=== PATIENT | female | born 1930 | race Caucasian/White ===

== ENCOUNTER → 2016-12-28 | Outpatient (CLI) | payer MEDICARE, BC ==
[2014-12-11 11:22] VITALS: BP 157/61
[~2016-12-28] MED LIST: CALC1TAB PO; CARV12.5 PO; IRBE150T PO; LACT1CAP25 PO; PANT40TA3 PO; RANI150T2 PO; [UNRECOGNIZED DRUG - CODE] PO
--- NOTE | 2016-12-28 12:15 | KCIC ---
EXAM: Bilateral screening mammogram. HISTORY: 86-year-old female presents for screening mammography. TECHNIQUE: Full-field digital craniocaudal, exaggerated craniocaudal and mediolateral oblique views of both breasts are obtained for evaluation. Computer aided detection with Lean[employer] software version 9.3 was applied. COMPARISON: 12/26/2015 BREAST PARENCHYMAL DENSITY: Level B - Scattered fibroglandular densities. FINDINGS: There is a small focal asymmetry within the lateral aspect of the right breast on the craniocaudal projection which is not conspicuous on an exaggerated craniocaudal projection, favoring summation artifact. There are few benign calcifications within both breasts. There is no architectural distortion. IMPRESSION: BI-RADS Category 2: Benign finding(s). RECOMMENDATION: Annual mammography is recommended. If your mammogram demonstrates that you have dense breast tissue, which could hide abnormalities, and if you have other risk factors for breast cancer that have been identified, you might benefit from supplemental screening tests that may be suggested by your ordering physician. Dense breast tissue, in and of itself, is a relatively common condition. This information is not provided to cause undue concern, but rather to raise your awareness and to promote discussion with your physician regarding the presence of other risk factors, in addition to dense breast tissue. A report of your mammography results will be sent to you and your physician. You should contact your physician if you have any questions or concerns regarding this report. Mammography is a sensitive method for finding small breast cancers, but it does not detect them all and is not a substitute for careful clinical examination. A negative mammogram does not negate a clinically suspicious finding and should not result in delay in biopsying a clinically suspicious abnormality. PQRS compliance statement - Patient information was entered into a reminder system with a target due date for the next mammogram. "Our facility is accredited by the [employer] Mammography [employer]." Electronically signed by: Silva Santiago MD (12/28/2016 12:11 PM) [facility]
== END | disposition home or self-care (01) ==
LOC: KCIC MAMMO 10:05
PROVIDERS: ATTEND Family Medicine
DX: Z12.31 Encounter for screening mammogram for malignant neoplasm of breast (principal)
CPT/HCPCS: G0202; 77067

== ENCOUNTER → 2018-01-04 | Outpatient (CLI) | payer MEDICARE, BC ==
[2014-12-11 11:22] VITALS: BP 157/61
--- NOTE | 2018-01-04 11:46 | KCIC ---
EXAM: Bilateral screening mammogram. HISTORY: 87-year-old female presents for screening mammography. TECHNIQUE: Full-field digital craniocaudal and mediolateral oblique views of both breasts are obtained for evaluation. Computer aided detection with Ibot[employer] software version 9.3 was applied. COMPARISON: 12/28/2016 and 12/26/2015 BREAST PARENCHYMAL DENSITY: Level B - Scattered fibroglandular densities. FINDINGS: There is no new suspicious mass, microcalcification or region of architectural distortion. IMPRESSION: BI-RADS Category 2: Benign finding(s). RECOMMENDATION: Annual mammography is recommended. If your mammogram demonstrates that you have dense breast tissue, which could hide abnormalities, and if you have other risk factors for breast cancer that have been identified, you might benefit from supplemental screening tests that may be suggested by your ordering physician. Dense breast tissue, in and of itself, is a relatively common condition. This information is not provided to cause undue concern, but rather to raise your awareness and to promote discussion with your physician regarding the presence of other risk factors, in addition to dense breast tissue. A report of your mammography results will be sent to you and your physician. You should contact your physician if you have any questions or concerns regarding this report. Mammography is a sensitive method for finding small breast cancers, but it does not detect them all and is not a substitute for careful clinical examination. A negative mammogram does not negate a clinically suspicious finding and should not result in delay in biopsying a clinically suspicious abnormality. PQRS compliance statement - Patient information was entered into a reminder system with a target due date for the next mammogram. "Our facility is accredited by the [employer] Mammography [employer]." Electronically signed by: Silva Santiago MD (01/04/2018 11:43 AM) [facility]
== END | disposition home or self-care (01) ==
LOC: KCIC MAMMO 10:16
PROVIDERS: ATTEND Family Medicine
DX: Z12.31 Encounter for screening mammogram for malignant neoplasm of breast (principal)
CPT/HCPCS: 77067

== ENCOUNTER → 2019-01-15 | Outpatient (CLI) | payer MEDICARE, BC ==
[2014-12-11 11:22] VITALS: BP 157/61
[~2019-01-15] MED LIST changes: -PANT40TA3 PO; +PANT40TA77 PO
--- NOTE | 2019-01-15 12:28 | KCIC ---
Bilateral digital screening mammograms: Reason for examination: Routine screening. Comparison is made to previous studies dated 01/04/2018 and 12/28/2016. Interpretation was made with the benefit of CAD. The skin and nipples show no abnormalities. No abnormal axillary lymph nodes are seen. The breast parenchyma shows scattered fibroglandular density. (Breast density: Category B.) There are no dominant masses, suspicious calcifications or architectural distortions. Some benign calcifications are present. Impression: No evidence of malignancy. Recommend routine screening. BI-RADS category 2: Benign. "Our facility is accredited by the [employer] Mammography [employer]." This patient's information has been entered into a reminder system for the patient to be notified with the results of her examination and a target date for the next mammogram. Electronically signed by: Breanna Zhang MD (01/15/2019 12:25 PM) [facility]
== END | disposition home or self-care (01) ==
LOC: KCIC MAMMO 11:26
PROVIDERS: ATTEND Family Medicine
DX: Z12.31 Encounter for screening mammogram for malignant neoplasm of breast (principal); N64.89 Other specified disorders of breast
CPT/HCPCS: 77067

== ENCOUNTER 2019-03-18 10:40 | Emergency (ER) | payer MEDICARE, BC ==
[~2019-03-18] VITALS: Ht 157.5 cm; Wt 75.7 kg
[2019-03-18] MEDS ORDERED: fentaNYL PF VIAL 100 MCG/2 ML VIAL IVP ONE ×2 (11:30→13:30)
[2019-03-18] MEDS ORDERED: IPRATRPIUM/ALBUTEROL 0.5/2.5MG 3 ML NEBU. NEB ONE (11:30)
--- NOTE | 2019-03-18 11:34 | PHYS DOC ---
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 Patient states she has had right side headache and facial pain for the last 10 days associated with cough without fever and chills, sore throat, sick contact, shortness of breath, diarrhea and constipation, urinary symptom, focal neuro deficit. Patient complaining of right maxillary and frontal sinus pain with radiation to her ear and throat and rated her pain 8/10. Patient states she was seen by her primary care physician 5 days ago and was started on doxycycline without improvement of her condition. Review of Systems Review of Systems Constitutional: Denies fever or chills [] Eyes: Denies change in visual acuity, redness, or eye pain [] HENT: Reports nasal congestion Respiratory: Denies shortness of breath, reports cough [] Cardiovascular: No additional information not addressed in HPI [] GI: Denies abdominal pain, nausea, vomiting, bloody stools or diarrhea [] : Denies dysuria or hematuria [] Musculoskeletal: Denies back pain or joint pain [] Integument: Denies rash or skin lesions [] Neurologic: Denies headache, focal weakness or sensory changes [] Endocrine: Denies polyuria or polydipsia [] All other systems were reviewed and found to be within normal limits, except as documented in this note. Current Medications Current Medications Current Medications Medications (Trade) Dose Ordered Sig/Serina Start Time Stop Time Status Last Admin Dose Admin Albuterol Sulfate (Ventolin Neb Soln) 2.5 mg 1X ONCE 03/18/19 13:30 03/18/19 13:31 DC 03/18/19 13:29 2.5 MG Albuterol/ Ipratropium (Duoneb) 3 ml 1X ONCE 03/18/19 11:30 03/18/19 11:31 DC 03/18/19 11:52 3 ML Ceftriaxone Sodium (Rocephin) 1 gm 1X ONCE 03/18/19 13:15 03/18/19 13:16 DC 03/18/19 13:22 1 GM Fentanyl Citrate (Fentanyl 2ml Vial) 50 mcg 1X ONCE 03/18/19 13:30 03/18/19 13:31 DC 03/18/19 13:24 50 MCG Magnesium Oxide (Magnesium Oxide) 400 mg 1X ONCE 03/18/19 13:00 03/18/19 13:01 DC 03/18/19 13:16 400 MG Allergies Allergies Allergies Coded Allergies Type Severity Reaction Last Updated Verified atropine Allergy Severe "COMA" 07/22/14 Yes grape Allergy Severe 12/09/14 Yes adhesive Allergy Intermediate 10/10/14 Yes Physical Exam Physical Exam Constitutional: Well developed, well nourished, mild distress, non-toxic appearance. [] HENT: Normocephalic, atraumatic, bilateral external ears normal, oropharynx moist, no oral exudates, or mucosal congestion, mild right facial edema, right maxillary and frontal sinus tenderness Eyes: PERRLA, EOMI, conjunctiva normal, no discharge. [] Neck: Normal range of motion, no tenderness, supple, no stridor. [] Cardiovascular:Heart rate regular rhythm, no murmur [] Lungs & Thorax: Bilateral breath sounds clear to auscultation [] Abdomen: Bowel sounds normal, soft, no tenderness, no masses, no pulsatile masses. [] Skin: Warm, dry, no erythema, no rash. [] Back: No tenderness, no CVA tenderness. [] Extremities: No tenderness, no cyanosis, no clubbing, ROM intact, no edema. [] Neurologic: Alert and oriented X 3, normal motor function, normal sensory func tion, no focal deficits noted. [] Psychologic: Affect normal, judgement normal, mood normal. [] Current Patient Data Vital Signs Vital Signs Date Time Temp Pulse Resp B/P (MAP) Pulse Ox O2 Delivery O2 Flow Rate FiO2 03/18/19 13:30 Room Air 03/18/19 13:24 18 03/18/19 13:01 64 168/69 (102) 93 03/18/19 10:43 97.7 97.7 Lab Values Laboratory Tests Test 03/18/19 11:56 White Blood Count 7.9 x10^3/uL (4.0-11.0) Red Blood Count 3.69 x10^6/uL (3.50-5.40) Hemoglobin 12.0 g/dL (12.0-15.5) Hematocrit 37.0 % (36.0-47.0) Mean Corpuscular Volume 100 fL (79-100) Mean Corpuscular Hemoglobin 33 pg (25-35) Mean Corpuscular Hemoglobin Concent 33 g/dL (31-37) Red Cell Distribution Width 12.7 % (11.5-14.5) Platelet Count 215 x10^3/uL (140-400) Neutrophils (%) (Auto) 74 % (31-73) H Lymphocytes (%) (Auto) 13 % (24-48) L Monocytes (%) (Auto) 11 % (0-9) H Eosinophils (%) (Auto) 1 % (0-3) Basophils (%) (Auto) 1 % (0-3) Neutrophils # (Auto) 5.9 x10^3/uL (1.8-7.7) Lymphocytes # (Auto) 1.0 x10^3/uL (1.0-4.8) Monocytes # (Auto) 0.9 x10^3/uL (0.0-1.1) Eosinophils # (Auto) 0.1 x10^3/uL (0.0-0.7) Basophils # (Auto) 0.0 x10^3/uL (0.0-0.2) Sodium Level 140 mmol/L (136-145) Potassium Level 4.1 mmol/L (3.5-5.1) Chloride Level 104 mmol/L (98-107) Carbon Dioxide Level 27 mmol/L (21-32) Anion Gap 9 (6-14) Blood Urea Nitrogen 18 mg/dL (7-20) Creatinine 1.0 mg/dL (0.6-1.0) Estimated GFR (Cockcroft-Gault) 52.4 BUN/Creatinine Ratio 18 (6-20) Glucose Level 95 mg/dL (70-99) Lactic Acid Level 1.6 mmol/L (0.4-2.0) Calcium Level 9.6 mg/dL (8.5-10.1) Magnesium Level 1.5 mg/dL (1.8-2.4) L Total Bilirubin 0.4 mg/dL (0.2-1.0) Aspartate Amino Transferase (AST) 21 U/L (15-37) Alanine Aminotransferase (ALT) 14 U/L (14-59) Alkaline Phosphatase 66 U/L (46-116) Troponin I Quantitative < 0.017 ng/mL (0.000-0.055) LB-Dvo-N-Type Natriuretic Peptide 1153 pg/mL (0-449) H Total Protein 6.5 g/dL (6.4-8.2) Albumin 3.2 g/dL (3.4-5.0) L Albumin/Globulin Ratio 1.0 (1.0-1.7) Influenza Type A Antigen Negative (NEGATIVE) Influenza Type B Antigen Negative (NEGATIVE) Laboratory Tests 03/18/19 11:56 Laboratory Tests 03/18/19 11:56 EKG EKG [] Radiology/Procedures Radiology/Procedures [][place] [address] IMAGING REPORT Signed PATIENT: BLESSING GUY ACCOUNT: [id number] : 1930 LOCATION: ER AGE: 89 SEX: F EXAM STATUS: REG ER ORD. PHYSICIAN: JENNIFER DE LA FUENTE MD REASON: cough x1 week PROCEDURE: CHEST PA & LATERAL CHEST PA LATERAL History: Cough. Comparison: October 11, 2014 Findings: Elevation of the right hemidiaphragm. No consolidation or pleural effusion. Hyperinflation. Normal heart size. No pneumothorax. Impression: 1. Hyperinflation with bibasilar linear atelectasis or scarring. Electronically signed by: Maurice Gar DO (03/18/2019 12:14 PM) [facility] DICTATED and SIGNED BY: MAURICE GAR DO DATE: 03/18/[address] [address] IMAGING REPORT Signed PATIENT: BLESSING GUY ACCOUNT: [id number] : 1930 LOCATION: ER AGE: 89 SEX: F EXAM STATUS: REG ER ORD. PHYSICIAN: JENNIFER DE LA FUENTE MD REASON: headache, sinuses problems PROCEDURE: CT HEAD AND MAXILLOFACIAL WO Examination: CT head and maxillofacial bones CT HEAD INDICATION: Headache, sinus problems COMPARISON: None Available. Exposure: One or more of the following individualized dose reduction techniques were utilized for this examination: 1. Automated exposure control 2. Adjustment of the mA and/or kV according to patient size 3. Use of iterative reconstruction technique TECHNIQUE: 5 mm contiguous axial images were obtained from the skull base to the vertex in both bone and soft tissue algorithm axial CT images of the sinuses were performed without contrast. Coronal and sagittal reformats are performed.. FINDINGS: Mild bilateral periventricular white matter hypodensities likely chronic small vessel ischemic disease. No evidence of acute intracranial hemorrhage. No extra-axial fluid collections. No mass effect or midline shift. Ventricular size is appropriate. Basal cisterns are patent. No fractures identified.Iqbal-white differentiation is preserved.Globes and orbits are within normal limits. Complete opacification of the right frontal sinus, right ethmoidal sinus and the right maxillary sinus is identified. There is calcification of the medial aspect of the opacified right maxillary sinus extending into the nasal cavity. The mastoid air cells are clear. IMPRESSION: 1. Complete opacification of the right frontal sinus, right ethmoidal sinus and the partially visualized right maxillary sinus with opacification and calcification extending into the right nasal cavity likely sinus disease/polyps. 2. No acute intracranial findings. Electronically signed by: Nehemiah Vazquez MD (03/18/2019 11:56 AM) [facility] Course & Med Decision Making Course & Med Decision Making Pertinent Labs and Imaging studies reviewed. (See chart for details) Evaluation of the patient in ER showed 89-year-old female patient with headache and facial pain that did not get better with doxycycline given at urgent care. CT showed ethmoid and frontal and maxillary sinus infection in right side. Patient did not have leukocytosis or elevation of lactic acid. Magnesium was 1.6 and patient treated with oral magnesium. Patient treated with Rocephin ER and didn't want hospitalization. Patient was advised to return to ER if not getting better in 48 hours for follow-up with her primary care physician. I've spoken with the patient and/or caregivers. I've explained the patient's condition, diagnosis and treatment plan based on information available to me at this time. I've answered the patient's and/or caregivers questions and addressed any concerns. The patient and/or caregivers have a good understanding the patient's diagnosis, condition and treatment plan as can be expected at this point. Vital signs have been stabilized. The patient's condition is stable for discharge from the emergency department. The patient will pursue further outpatient evaluation with her primary care provider or other designated consulting physician as outlined in the discharge instructions. Patient and/or caregivers are agreeable to this plan of care and follow-up instructions have been explained in detail. The patient and/or caregivers have received these instructions in written format and expressed understanding of these discharge instructions. The patient and her caregivers are aware that if any significant change in condition or worsening of symptoms should prompt him to immediately return to this of the closest emergency department. If an emergent department is not readily available I would encourage him to call 911. Munir Disclaimer Munir Disclaimer This electronic medical record was generated, in whole or in part, using a voice recognition dictation system. Departure Departure Impression: Primary Impression: Acute sinusitis Additional Impressions: Acute bronchitis Hypomagnesemia Elevated brain natriuretic peptide (BNP) level Headache Disposition: HOME, SELF-CARE (at 1338) Condition: IMPROVED Referrals: SALEEM HARPER (PCP) Patient Instructions: Acute Bronchitis, Hypomagnesemia, Sinusitis Additional Instructions: Stop taking doxycycline Follow-up with your primary care physician in 2-3 days for possible referral to an ENT specialist Return to ER if not getting better Thank you for visiting [facility]. We appreciate you trusting us with your care. If any additional problems come up don't hesitate to return to visit us. Please follow up with your primary care provider so they can plan additional care if needed and know about the problem that you had. If symptoms worsen come back to the Emergency Department. Any concerning symptoms that start such as chest pain, shortness of air, weakness or numbness on one side of the body, running high fevers or any other concerning symptoms return to the ER. Scripts Albuterol Sulfate (PROAIR HFA INHALER) 8.5 Gm Hfa.aer.ad 2 PUFF IH PRN Q4-6HRS PRN for wheezing for 21 Days, #1 INHALER 0 Refills Prov: JENNIFER DE LA FUENTE MD 03/18/19 Benzonatate (TESSALON PERLE) 100 Mg Capsule 1 CAP PO TID for cough, #21 CAP Prov: JENNIFER DE LA FUENTE MD 03/18/19 Oxycodone/Apap 5-325 (PERCOCET 5-325 MG TABLET ) 1 Each Tablet 1 TAB PO PRN Q6HRS PRN for PAIN, #14 TAB 0 Refills Prov: JENNIFER DE LA FUENTE MD 03/18/19 Amoxicillin (AMOXICILLIN) 500 Mg Capsule 1 CAP PO Q8HRS for infection, #30 CAP Prov: JENNIFER DE LA FUENTE MD 03/18/19 Problem Qualifiers Primary Impression: Acute sinusitis Sinusitis location: maxillary Recurrence: not specified as recurrent Qualified Codes: J01.00 - Acute maxillary sinusitis, unspecified Additional Impressions: Acute bronchitis Bronchitis organism: unspecified organism Qualified Codes: J20.9 - Acute bronchitis, unspecified Headache Headache type: unspecified Headache chronicity pattern: unspecified pattern Intractability: not intractable Qualified Codes: R51 - Headache JENNIFER DE LA FUENTE MD Mar 18, 2019 11:34
--- NOTE | 2019-03-18 11:59 | RAD ---
Examination: CT head and maxillofacial bones CT HEAD INDICATION: Headache, sinus problems COMPARISON: None Available. Exposure: One or more of the following individualized dose reduction techniques were utilized for this examination: 1. Automated exposure control 2. Adjustment of the mA and/or kV according to patient size 3. Use of iterative reconstruction technique TECHNIQUE: 5 mm contiguous axial images were obtained from the skull base to the vertex in both bone and soft tissue algorithm axial CT images of the sinuses were performed without contrast. Coronal and sagittal reformats are performed.. FINDINGS: Mild bilateral periventricular white matter hypodensities likely chronic small vessel ischemic disease. No evidence of acute intracranial hemorrhage. No extra-axial fluid collections. No mass effect or midline shift. Ventricular size is appropriate. Basal cisterns are patent. No fractures identified.Iqbal-white differentiation is preserved.Globes and orbits are within normal limits. Complete opacification of the right frontal sinus, right ethmoidal sinus and the right maxillary sinus is identified. There is calcification of the medial aspect of the opacified right maxillary sinus extending into the nasal cavity. The mastoid air cells are clear. IMPRESSION: 1. Complete opacification of the right frontal sinus, right ethmoidal sinus and the partially visualized right maxillary sinus with opacification and calcification extending into the right nasal cavity likely sinus disease/polyps. 2. No acute intracranial findings. Electronically signed by: Nehemiah Vazquez MD (03/18/2019 11:56 AM) [facility]
[2019-03-18 12:11] LABS: BASO % 1 % (0-3); EOS # 0.1 x10^3/uL (0.0-0.7); EOS % 1 % (0-3); LYMPH % 13 % (24-48); MEAN CORPUSCULAR HEMOGLOBIN 33 pg (25-35); MEAN CORPUSCULAR HGB CONC 33 g/dL (31-37); MEAN CORPUSCULAR VOLUME 100 fL (79-100); MONO # 0.9 x10^3/uL (0.0-1.1); MONO % 11 % (0-9); NEUT # 5.9 x10^3/uL (1.8-7.7); NEUT % 74 % (31-73); PLATELET COUNT 215 x10^3/uL (140-400); RED BLOOD COUNT 3.69 x10^6/uL (3.50-5.40); RED CELL DISTRIBUTION WIDTH 12.7 % (11.5-14.5); WHITE BLOOD COUNT 7.9 x10^3/uL (4.0-11.0)
--- NOTE | 2019-03-18 12:16 | RAD ---
CHEST PA LATERAL History: Cough. Comparison: October 11, 2014 Findings: Elevation of the right hemidiaphragm. No consolidation or pleural effusion. Hyperinflation. Normal heart size. No pneumothorax. Impression: 1. Hyperinflation with bibasilar linear atelectasis or scarring. Electronically signed by: Maurice Gar DO (03/18/2019 12:14 PM) [facility]
[2019-03-18 12:26] LABS: CALCIUM 9.6 mg/dL (8.5-10.1); GFR 52.4; POTASSIUM 4.1 mmol/L (3.5-5.1)
[2019-03-18 12:27] LABS: INFLUENZA A PATIENT NEGATIVE (NEGATIVE); INFLUENZA B PATIENT NEGATIVE (NEGATIVE)
[2019-03-18 12:30] LABS: ALBUMIN 3.2 g/dL (3.4-5.0); TOTAL BILIRUBIN 0.4 mg/dL (0.2-1.0); TOTAL PROTEIN 6.5 g/dL (6.4-8.2)
[2019-03-18] MEDS ORDERED: MAGNESIUM OXIDE 400 MG TABLET PO ONE (13:00)
[2019-03-18 13:01] VITALS: BP 168/69
[2019-03-18] MEDS ORDERED: cefTRIAXone IV Push 1 GM VIAL. IVP ONE (13:15)
[2019-03-18] MEDS ORDERED: ALBUTEROL SULFATE 2.5 MG/3 ML NEBU. NEB ONE (13:30)
[2019-03-18] MEDS ORDERED: OXYC1TAB15 PO (13:43)
[2019-03-18] MEDS ORDERED: ALBU2.5V8 IH (13:43)
[2019-03-18] MEDS ORDERED: AMOX500C PO (13:43)
[2019-03-18] MEDS ORDERED: BENZ100C PO (13:43)
== END 2019-03-18 13:52 | disposition home or self-care (01) ==
LOC: ER 10:40
DX: J01.00 Acute maxillary sinusitis, unspecified (principal); J20.9 Acute bronchitis, unspecified; E83.42 Hypomagnesemia; R79.89 Other specified abnormal findings of blood chemistry; I10 Essential (primary) hypertension; Z88.8 Allergy status to other drugs, medicaments and biological substances; Z91.018 Allergy to other foods
CPT/HCPCS: 36415; 70450; 70486; 71046; 80053; 83605; 83735; 83880; 84484; 85025; 87804; 94640; 96374; 96375; 96376; 99285; J0696; J3010; J7613; J7620

== ENCOUNTER 2019-03-22 19:22 | Emergency (ER) | payer MEDICARE, BC ==
[~2019-03-22] VITALS: Ht 162.6 cm; Wt 75.7 kg
[~2019-03-22 19:22] MED LIST changes: +ALBU2.5V8 IH; +AMOX500C PO; +BENZ100C PO; +OXYC1TAB15 PO
[2019-03-22 19:35] VITALS: BP 145/66
--- NOTE | 2019-03-22 21:22 | PHYS DOC ---
Past Medical History Past Medical History: Diverticulosis, Hypertension, Other Additional Past Medical Histor: perforated diverticula (SIXTO JONES APRN) Past Surgical History: Appendectomy, Cholecystectomy, Hysterectomy, Knee Replacement, Other Additional Past Surgical Histo: RIGHT SHOULDER SURG (SIXTO JONES APRN) Alcohol Use: None Drug Use: None (SIXTO JONES APRN) Attending Signature I have participated in the care of this patient and I have reviewed and agree with all pertinent clinical information above including history, exam, and recommendations. (AMANDA CORTES MD) Adult General Chief Complaint Chief Complaint: Congestion HPI HPI Patient is a 89 year old female who presents with an March 18, 2019 she was diagnosed with sinusitis and bronchitis and was given an inhaler, Tessalon Perles, Percocet, amoxicillin. Patient states she is still having a cough. She states that she is not feeling any better. (SIXTO JONES APRN) Review of Systems Review of Systems Respiratory: cough or denies shortness of breath [] All other systems were reviewed and found to be within normal limits, except as documented in this note. (SIXTO JONES APRN) Allergies Allergies Allergies Coded Allergies Type Severity Reaction Last Updated Verified atropine Allergy Severe "COMA" 07/22/14 Yes grape Allergy Severe 12/09/14 Yes adhesive Allergy Intermediate 10/10/14 Yes (AMANDA CORTES MD) Physical Exam Physical Exam Constitutional: Well developed, well nourished, no acute distress, non-toxic appearance. [] HENT: Normocephalic, atraumatic, bilateral external ears normal, oropharynx moist, no oral exudates, nose normal. Nasal congestion. [] Eyes: PERRLA, EOMI, conjunctiva normal, no discharge. [] Neck: Normal range of motion, no tenderness, supple, no stridor. [] Cardiovascular:Heart rate regular rhythm, no murmur [] Lungs & Thorax: Bilateral breath sounds clear to auscultation [] Abdomen: Bowel sounds normal, soft, no tenderness, no masses, no pulsatile masses. [] Skin: Warm, dry, no erythema, no rash. [] Back: No tenderness, no CVA tenderness. [] Extremities: No tenderness, no cyanosis, no clubbing, ROM intact, no edema. [] Neurologic: Alert and oriented X 3, normal motor function, normal sensory function, no focal deficits noted. [] Psychologic: Affect normal, judgement normal, mood normal. [] (SIXTO JONES APRN) Current Patient Data Vital Signs Vital Signs Date Time Temp Pulse Resp B/P (MAP) Pulse Ox O2 Delivery O2 Flow Rate FiO2 03/22/19 19:35 98.6 62 20 145/66 (92) 94 Room Air 98.6 (AMANDA CORTES MD) EKG EKG [] (SIXTO JONES APRN) Radiology/Procedures Radiology/Procedures [] (SIXTO JONES APRN) Impressions: [facility] [address] [place], [place] [id number] IMAGING REPORT Signed PATIENT: BLESSING GUY ACCOUNT: [id number] : 1930 LOCATION: ER AGE: 89 SEX: F EXAM STATUS: DEP ER ORD. PHYSICIAN: SIXTO JONES APRN REASON: COUGH PROCEDURE: CHEST PA & LATERAL EXAM: PA and Lateral Views of the Chest DATE: 03/22/2019 8:10 PM INDICATION: Cough COMPARISON: No Prior FINDINGS: The heart is not enlarged. Mediastinal and hilar contours are stable. No lobar consolidation. Emphysematous changes are seen in the right lower lung. No pleural effusion or pneumothorax. IMPRESSION: Emphysematous changes are seen. No lobar consolidation. Electronically signed by: Tawanda Gómez MD (03/22/2019 10:48 PM) [facility] DICTATED and SIGNED BY: TAWANDA GÓMEZ MD DATE: 03/22/19 2248 (SIXTO JONES APRN) Course & Med Decision Making Course & Med Decision Making Lungs are clear to auscultation in all lobes. X-ray shows no acute findings. Alert and oriented. Speaks in full clear sentences. Ambulatory with a steady gait. Skin pink warm and dry. Mucous membranes are moist. Vital signs within normal limits. Patient is told she needs to give the medications longer to start working as his only been 4 days. I also told patient this could likely be viral and it will last longer and antibiotics would not help. I also asked the patient if she is laying flat to sleep as she states that the coughing is worse at night and she cannot sleep. She states yes. I educated the patient to sleep in a recliner or propped up. I also educated the patient on nasal spray. I feel the patient that she needs to follow up with primary care provider and to continue taking all the medications as prescribed. Patient agrees to this care plan. Patient denies nausea, vomiting, diarrhea, fever, shortness of breath, chest pain, abdominal pain, back pain, neck pain, dizziness, syncope, numbness or tingling. (SIXTO JONES APRN) Dragon Disclaimer Dragon Disclaimer This electronic medical record was generated, in whole or in part, using a voice recognition dictation system. (SIXTO JONES APRN) Departure Departure Impression: Primary Impression: Nasal congestion Additional Impression: Cough Disposition: 01 HOME, SELF-CARE Condition: STABLE Referrals: SALEEM HRAPER (PCP) Patient Instructions: Cough, Adult Additional Instructions: Follow up with primary care. Use nasal sprays. Problem Qualifiers SIXTO JONES APRN Mar 22, 2019 21:22 AMANDA CORTES MD Mar 23, 2019 03:03
--- NOTE | 2019-03-22 22:51 | RAD ---
EXAM: PA and Lateral Views of the Chest DATE: 03/22/2019 8:10 PM INDICATION: Cough COMPARISON: No Prior FINDINGS: The heart is not enlarged. Mediastinal and hilar contours are stable. No lobar consolidation. Emphysematous changes are seen in the right lower lung. No pleural effusion or pneumothorax. IMPRESSION: Emphysematous changes are seen. No lobar consolidation. Electronically signed by: Tawanda Bone MD (03/22/2019 10:48 PM) [facility]
== END 2019-03-22 21:25 | disposition home or self-care (01) ==
LOC: ER 19:22
DX: R05 Cough (principal); R09.81 Nasal congestion; I10 Essential (primary) hypertension; Z88.8 Allergy status to other drugs, medicaments and biological substances; Z91.018 Allergy to other foods
CPT/HCPCS: 71046; 99284

== ENCOUNTER → 2020-02-04 | Outpatient (CLI) | payer MEDICARE, BC ==
--- NOTE | 2020-02-04 12:09 | KCIC ---
Bilateral digital screening mammograms with 3-D tomosynthesis: Reason for examination: Routine screening. Comparison is made to previous studies dated back to 12/26/2015. Bilateral mammograms in CC and oblique projections were obtained with 2-D imaging and 3-D tomosynthesis imaging on a Siemens Inspiration unit and reviewed on the workstation. Interpretation was made with the benefit of CAD. The skin and nipples show no abnormalities. No abnormal axillary lymph nodes are seen. The breast parenchyma shows scattered fatty and fibroglandular density. (Breast density: Category B.) There is a cluster calcifications present posterior medially in the right breast at the 4:00 C position 6 cm from the nipple which appears to be stable. There are no other new dominant masses, suspicious calcifications or architectural distortion. Additional scattered calcifications are seen. Impression: No evidence of malignancy. Recommend routine screening. BI-RAD Category 2: Benign. "Our facility is accredited by the [employer] Mammography Program." This patient's information has been entered into a reminder system for the patient to be notified with the results of her examination and a target date for the next mammogram. Electronically signed by: Breanna Zhang MD (02/04/2020 12:06 PM) [id number]
== END ==
LOC: KCIC MAMMO 10:53
PROVIDERS: ATTEND Family Medicine
DX: Z12.31 Encounter for screening mammogram for malignant neoplasm of breast (principal); N64.89 Other specified disorders of breast
CPT/HCPCS: 77067

== ENCOUNTER 2021-03-15 08:50 | Inpatient (IN) | payer MEDICARE, BC ==
[~2021-03-15] VITALS: Ht 160 cm; Wt 61.3 kg
[~2021-03-15 08:50] MED LIST changes: -LACT1CAP25 PO; +LACT1CAP39 PO
[2021-03-15] MEDS ORDERED: IV NORMAL SALINE 500ML BAG 500 ML IV ONE ×2 (09:00→10:00)
[2021-03-15] MEDS ORDERED: ACETAMINOPHEN 500 MG TABLET PO ONE (09:15)
--- NOTE | 2021-03-15 09:16 | PHYS DOC ---
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 She lives at home in the community with family. She presents via EMS with a concern related by family that she may have a urinary tract infection. Apparently family feel that she has been acting a little more confused than usual, unclear chronicity on this complaint as no family are at bedside to provide collateral history. Vital signs and blood glucose were appropriate en route per EMS. Patient herself is alert and pleasantly and appropriately interactive, though extremely hard of hearing, and in no acute distress, moving all extremities equally. It is difficult to determine whether she is confused or whether she is simply extremely hard of hearing and not answering some questions completely appropriately as a result. She states "my sister thinks I have a UTI but I know I do not because I know what that feels like and it does not hurt down there." She denies pain anywhere aside from some chronic discomfort to her left shoulder where she apparently has a rotator cuff tear. She does admit to a fall from ground-level yesterday due to slipping and admits to striking her head but denies loss of consciousness, nausea or vomiting or amnesia to events. She is not on any blood thinners. Patient specifically denies fevers, headache, focal or lateralizing weakness, numbness or tingling, neck stiffness/pain/meningismus, vision changes, upper respiratory congestion/rhinorrhea, cough, sore throat, shortness of breath or chest pain of any kind, abdominal pain of any kind, flank pain, midline back pain, dysuria, hematuria, polyuria or oliguria, pain to arms or legs, changes in bowel habits. Review of Systems Review of Systems A 12 point review of systems was completed and was negative except where noted in HPI above. Current Medications Current Medications Current Medications Medications (Trade) Dose Ordered Sig/Serina Start Time Stop Time Status Last Admin Dose Admin Acetaminophen (Tylenol) 1,000 mg 1X ONCE 03/15/21 09:15 03/15/21 09:16 DC 03/15/21 09:23 1,000 MG Sodium Chloride 500 ml @ 500 mls/hr 1X ONCE 03/15/21 10:00 03/15/21 10:59 Allergies Allergies Allergies Coded Allergies Type Severity Reaction Last Updated Verified atropine Allergy Severe "COMA" 07/22/14 Yes grape Allergy Severe 12/09/14 Yes adhesive Allergy Intermediate 10/10/14 Yes Physical Exam Physical Exam Elderly female appearing nontoxic and in no acute distress. Head is normocephalic and atraumatic. Neck is supple and nontender. Oropharynx is moist. Lungs are clear to auscultation at all stations. There is normal S1 and S2 without rubs or gallops and capillary refill is appropriate, less than 2 seconds globally. Abdomen is soft, nontender and nondistended with colostomy in place to left lower quadrant with scant soft brown stool in the bag. Skin is warm and dry without cyanosis, clubbing or edema. Psychiatrically, the patient demonstrates appropriate mood and affect and is alert. Evaluation of the extrem ities reveals BUEs and BLEs neurovascularly intact distally with strength 5 out of 5, sensation intact light touch in all nerve distributions, radial, DP and PT pulses 2+ and equal bilaterally, capillary refill less than 2 seconds, hands and feet warm and well-perfused. No dependent peripheral edema distally. No calf tenderness or swelling bilaterally. Homans test is negative bilaterally. No e rythema, warmth, swelling or discomfort with ranging to any joint of the bilateral upper or lower extremities. Neurologically, patient moves all extremities equally, is alert and oriented x4 and no lateralizing deficits are seen. Current Patient Data Vital Signs Vital Signs Date Time Temp Pulse Resp B/P (MAP) Pulse Ox O2 Delivery O2 Flow Rate FiO2 03/15/21 08:50 97.7 78 16 161/63 (95) 97 Room Air 97.7 Lab Values Laboratory Tests Test 03/15/21 09:02 03/15/21 09:20 Urine Collection Type U cath Urine Color [place] Urine Clarity Cloudy Urine pH 7.5 (<5.0-8.0) Urine Specific [place] 1.020 (1.000-1.030) Urine Protein 100 mg/dL (NEG-TRACE) Urine Glucose (UA) Negative mg/dL (NEG) Urine Ketones (Stick) Trace mg/dL (NEG) Urine Blood Moderate (NEG) Urine Nitrite Positive (NEG) Urine Bilirubin Small (NEG) Urine Urobilinogen Dipstick 1.0 mg/dL (0.2 mg/dL) Urine Leukocyte Esterase Large (NEG) Urine RBC 6-10 /HPF (0-2) Urine WBC >40 /HPF (0-4) Urine Squamous Epithelial Cells Few /LPF Urine Bacteria Many /HPF (0-FEW) Urine Hyaline Casts Occasional /HPF Urine Mucus Slight /LPF White Blood Count 10.7 x10^3/uL (4.0-11.0) Red Blood Count 3.66 x10^6/uL (3.50-5.40) Hemoglobin 12.3 g/dL (12.0-15.5) Hematocrit 36.6 % (36.0-47.0) Mean Corpuscular Volume 100 fL (79-100) Mean Corpuscular Hemoglobin 34 pg (25-35) Mean Corpuscular Hemoglobin Concent 34 g/dL (31-37) Red Cell Distribution Width 13.1 % (11.5-14.5) Platelet Count 200 x10^3/uL (140-400) Neutrophils (%) (Auto) 80 % (31-73) H Lymphocytes (%) (Auto) 12 % (24-48) L Monocytes (%) (Auto) 8 % (0-9) Eosinophils (%) (Auto) 1 % (0-3) Basophils (%) (Auto) 1 % (0-3) Neutrophils # (Auto) 8.5 x10^3/uL (1.8-7.7) H Lymphocytes # (Auto) 1.2 x10^3/uL (1.0-4.8) Monocytes # (Auto) 0.8 x10^3/uL (0.0-1.1) Eosinophils # (Auto) 0.1 x10^3/uL (0.0-0.7) Basophils # (Auto) 0.1 x10^3/uL (0.0-0.2) Sodium Level 134 mmol/L (136-145) L Potassium Level 4.5 mmol/L (3.5-5.1) Chloride Level 99 mmol/L (98-107) Carbon Dioxide Level 22 mmol/L (21-32) Anion Gap 13 (6-14) Blood Urea Nitrogen 23 mg/dL (7-20) H Creatinine 1.6 mg/dL (0.6-1.0) H Estimated GFR (Cockcroft-Gault) 30.3 BUN/Creatinine Ratio 14 (6-20) Glucose Level 97 mg/dL (70-99) Calcium Level 10.0 mg/dL (8.5-10.1) Total Bilirubin 0.5 mg/dL (0.2-1.0) Aspartate Amino Transferase (AST) 26 U/L (15-37) Alanine Aminotransferase (ALT) 17 U/L (14-59) Alkaline Phosphatase 62 U/L (46-116) Total Protein 7.2 g/dL (6.4-8.2) Albumin 3.7 g/dL (3.4-5.0) Albumin/Globulin Ratio 1.1 (1.0-1.7) Laboratory Tests 03/15/21 09:20 Laboratory Tests 03/15/21 09:20 EKG EKG [] Radiology/Procedures Radiology/Procedures [] Course & Med Decision Making Course & Med Decision Making Extremely elderly community dwelling female presenting for vague concerns of being slightly more confused than usual. Family feel that she may have a UTI but patient states she does not. Vital signs and clinical examination are reassuring. Neurologic examination is nonfocal. Will check basic labs and urine and will give a fluid bolus as the patient's mucous membranes appear a little dry. Will swab for Covid given community prevalence. Given reported fall with head strike yesterday, will check a head CT. We will then reevaluate. 1000: Head CT without evidence of bleed or fracture. + for urinary tract infection, with some superimposed mild acute renal insufficiency (normal baseline creatinine per records). Nephew is now here and reports that Ms. Motley has been falling repeatedly over the past 3 days and that family think she is quite confused versus her baseline. Given mild acute encephalopathy and multiple falls at home in the setting of urinary tract infection and likely prerenal renal insufficiency, acute, will bring in for further care on an observation basis. Have given a liter of normal saline and a dose of Rocephin. Graciously accepted by hospitalist Dr. Jimenez for observation admission. Dragon Disclaimer Dragon Disclaimer This electronic medical record was generated, in whole or in part, using a voice recognition dictation system. Departure Departure Impression: Primary Impression: Acute cystitis without hematuria Additional Impressions: Acute renal insufficiency Dehydration Acute metabolic encephalopathy Disposition: ADMITTED INPATIENT Condition: STABLE Referrals: ZHOU PEACOCK MD (PCP) Problem Qualifiers MARTÍN MARIANO MD Mar 15, 2021 09:15
[2021-03-15 09:28] LABS: BILIRUBIN,URINE SMALL (NEG); CLARITY,URINE CLOUDY; COLOR,URINE ORANGE; NITRITE,URINE POSITIVE (NEG); PH,URINE 7.5 (<5.0-8.0); PROTEIN,URINE 100 mg/dL (NEG-TRACE)
[2021-03-15 09:33] LABS: BASO # 0.1 x10^3/uL (0.0-0.2); BASO % 1 % (0-3); EOS # 0.1 x10^3/uL (0.0-0.7); EOS % 1 % (0-3); HEMATOCRIT 36.6 % (36.0-47.0); HEMOGLOBIN 12.3 g/dL (12.0-15.5); LYMPH # 1.2 x10^3/uL (1.0-4.8); LYMPH % 12 % (24-48); MEAN CORPUSCULAR HEMOGLOBIN 34 pg (25-35); MEAN CORPUSCULAR HGB CONC 34 g/dL (31-37); MEAN CORPUSCULAR VOLUME 100 fL (79-100); MONO # 0.8 x10^3/uL (0.0-1.1); MONO % 8 % (0-9); NEUT # 8.5 x10^3/uL (1.8-7.7); NEUT % 80 % (31-73); PLATELET COUNT 200 x10^3/uL (140-400); RED BLOOD COUNT 3.66 x10^6/uL (3.50-5.40); RED CELL DISTRIBUTION WIDTH 13.1 % (11.5-14.5); WHITE BLOOD COUNT 10.7 x10^3/uL (4.0-11.0)
[2021-03-15 09:44] LABS: HYALINE CASTS, URINE OCCASIONAL /HPF
[2021-03-15 09:45] LABS: BACTERIA,URINE MANY /HPF (0-FEW); WBC,URINE >40 /HPF (0-4)
[2021-03-15 09:45] LABS: CREATININE 1.6 mg/dL (0.6-1.0); GFR 30.3; POTASSIUM 4.5 mmol/L (3.5-5.1)
[2021-03-15 09:50] LABS: ALBUMIN 3.7 g/dL (3.4-5.0); ALBUMIN/GLOBULIN RATIO 1.1 (1.0-1.7); TOTAL BILIRUBIN 0.5 mg/dL (0.2-1.0); TOTAL PROTEIN 7.2 g/dL (6.4-8.2)
--- NOTE | 2021-03-15 10:07 | RAD ---
EXAM: Head CT without contrast. HISTORY: Fall. TECHNIQUE: Computed tomographic images of the head were obtained without contrast. *One or more of the following individualized dose reduction techniques were utilized for this examina tion: 1. Automated exposure control. 2. Adjustment of the mA and/or kV according to patient size. 3. Use of iterative reconstruction technique. COMPARISON: 03/18/2019. FINDINGS: There is no acute or subacute extra-axial or intraparenchymal hemorrhage. There is no mass effect or midline shift. There is no hydrocephalus. There are areas of decreased attenuation within the cerebral white matter, nonspecific and likely rel ated to chronic small vessel disease. There is cerebral volume loss. There is no suspicious calvarial lesion. The mastoid air cells are clear. There is evidence of lens surgery. There is complete opacification of the right maxillary sinus and there is right maxillary sinus wall thickening due to chronic sinusitis. There is also mucosal thickening or mucus retention cyst within the right frontal sinus. There is dehiscence or destruction of the medial right maxillary sinus wall due to a partially calcified masslike lesion extending into the nasal cavity measuring approximately 3.4 cm. This is partially included on the [id number] on the prior exam. IMPRESSION: 1. No acute intracranial finding. Note is made that MRI is more sensitive for acute infarction. 2. Cerebral volume loss and cerebral white matter changes due to chronic small vessel disease. 3. Partially calcified masslike lesion extending from the right maxillary sinus to the nasal cavity, partially included on the [id number] on the study performed 03/18/2019 and likely due to sequela o f chronic fungal sinusitis or mucocele. The absence of significant interval change does not favor mal ignancy. Electronically signed by: Silva Santiago MD (03/15/2021 10:04 AM) [facility]
[2021-03-15] MEDS ORDERED: ACETAMINOPHEN 325 MG TABLET. PO PRN (10:30)
[2021-03-15] MEDS: IV NORMAL SALINE 1000ML BAG 1,000 ML IV SCH ×4 (10:30→23:15)
[2021-03-15] MEDS ORDERED: ONDANSETRON PF 4 MG/2 ML VIAL. IVP PRN (10:30)
[2021-03-15 12:00] VITALS: BP 136/73
--- NOTE | 2021-03-15 13:03 | PDOC1 ---
History and Physical Date of Service: DOS: DATE: 03/15/21 TIME: 12:54 Chief Complaint: Chief Complain: Urinary frequency and falls History of Present Illness: HPI: History obtained from discussion with the ED physician, chart review and son at bedside: 89-year-old female with past medical history of hypertension and 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 Patient lives at home with sister and daughter. Sister is a nurse and daughter is the main caregiver. Apparently in the past few days patient has been having more urinary frequency and falls. She does not usually use any walking device. Son is at bedside is able to provide history along with the patient. They also noticed that the patient was having some bouts of confusion which is not normal for her. Patient has hard of hearing and is able to answer some questions appropriately. Patient denies any suprapubic discomfort or dysuria. She does admit to a fall from ground-level yesterday due to slipping and admits to striking her head but denies loss of consciousness, nausea or vomiting or amnesia to events. She is not on any blood thinners. Patient denies any chest pain, fevers, nausea vomiting, abdominal pain, hematuria or diarrhea. Past Medical/Surgical History: PMH/PSH: Past Medical History: Diverticulosis, Hypertension, perforated diverticula Past Surgical History: Appendectomy, Cholecystectomy, Hysterectomy, Knee Replacement, RIGHT SHOULDER SURG, permanent colostomy after resection Allergies: Allergies: Coded Allergies: atropine (Verified Allergy, Severe, "COMA", 07/22/14) grape (Verified Allergy, Severe, 12/09/14) Convulsion-like reaction adhesive (Verified Allergy, Intermediate, 10/10/14) Family History: Family History: Reviewed with no relevant findings Social History: Social History: Smoking Status: Former Smoker, quit in Alcohol Use: None Drug Use: None Current Medications: Current Medications Current Medications Sodium Chloride 500 ml @ 500 mls/hr 1X ONCE IV Last administered on 03/15/21at 09:23; Start 03/15/21 at 09:00; Stop 03/15/21 at 09:59; Status DC Acetaminophen (Tylenol) 1,000 mg 1X ONCE PO Last administered on 03/15/21at 09:23; Start 03/15/21 at 09:15; Stop 03/15/21 at 09:16; Status DC Sodium Chloride 500 ml @ 500 mls/hr 1X ONCE IV Last administered on 03/15/21at 10:42; Start 03/15/21 at 10:00; Stop 03/15/21 at 10:59; Status DC Ondansetron HCl (Zofran) 4 mg PRN Q8HRS PRN IVP NAUSEA/VOMITING; Start 03/15/21 at 10:30; Stop 03/16/21 at 10:29 Sodium Chloride 1,000 ml @ 75 mls/hr [id number] IV Last administered on 03/15/21at 12:39; Start 03/15/21 at 10:30; Stop 03/16/21 at 10:29 Acetaminophen (Tylenol) 650 mg PRN Q4HRS PRN PO PAIN; Start 03/15/21 at 10:30; Stop 03/16/21 at 10:29 Active Scripts Active Proair Hfa Inhaler (Albuterol Sulfate) 8.5 Gm Hfa.aer.ad 2 Puff IH PRN Q4-6HRS PRN 21 Days Tessalon Perle (Benzonatate) 100 Mg Capsule 1 Cap PO TID Percocet 5-325 Mg Tablet (Oxycodone/Acetaminophen) 1 Each Tablet 1 Tab PO PRN Q6HRS PRN Amoxicillin 500 Mg Capsule 1 Cap PO Q8HRS Protonix (Pantoprazole Sodium) 40 Mg Tablet 40 Mg PO DAILYAC Reported Probiotic (Lactobacillus Combination No.4) 1 Each Capsule 1 Each PO DAILY08 Coreg (Carvedilol) 12.5 Mg Tablet 1 Tab PO BID Avapro (Irbesartan) 150 Mg Tablet 150 Mg PO DAILY ROS: Review of Systems Review of System REVIEW OF SYSTEMS: GENERAL: Denies weakness SKIN: No bruising, hair changes or rashes. EYES: No blurred, double or loss of vision. NOSE AND THROAT: No history of nosebleeds, hoarseness or sore throat. HEART: No history of palpitations, chest pain or shortness of breath on exertion. LUNGS: Denies cough, hemoptysis, wheezing or shortness of breath. GASTROINTESTINAL: Denies changes in appetite, nausea, vomiting, diarrhea or constipation. GENITOURINARY: No history of frequency, urgency, hesitancy or nocturia. NEUROLOGIC: Denies history of numbness, tingling, or tremor. PSYCHIATRIC: No history of panic, anxiety or depression. ENDOCRINE: No history of heat or cold intolerance, polyuria or polydipsia. EXTREMITIES: Denies joint pain, pain on walking or stiffness. Physical Exam: Vital Signs: Vital Signs Date Time Temp Pulse Resp B/P (MAP) Pulse Ox O2 Delivery O2 Flow Rate FiO2 03/15/21 11:21 70 18 143/70 (94) 96 Room Air 03/15/21 10:21 97.7 97.7 Physcial Exam: GEN: No apparent distress. Alert and oriented HEENT: Normal cephalic, atraumatic, external auditory canals are patent EYES: Extraocular muscles are intact, pupil are equally round and reactive to light and accommodation MUSCULOSKELETAL: Well developed , well nourished, good range of motion ENDOCRINE: No thyromegaly was palpated LYMPHATICS: No cervical chain or axillary nodes were noted HEMATOPOIETIC: No bruising NECK: Supple, no JVD, no thyromegaly was noted LUNGS: Clear to auscultation in all lung dailey without rhonchi or wheezing HEART: RRR, S!, S2 present. Peripheral pulses intact, no obvious murmurs noted ABDOMEN: Soft, nontender. Positive bowel sounds, no organomegaly, normal bowel sounds EXTREMITIES: Without clubbing, cyanosis, or edema. Pedal pulses intact. Negative Homans sign NEUROLOGIC: Normal speech and tone. A&O x 3, moves all extremities, no obvious focal deficits PSYCHIATRIC: Normal affect, normal mood. Stable SKIN: No ulcerations or rashes, good skin turgor, no jaundice VASCULAR: Good capillary refill, neurovascular bundle appears to be intact Labs: Labs: Laboratory Tests Test 03/15/21 09:00 03/15/21 09:02 03/15/21 09:20 SARS-CoV-2 Antigen (Rapid) Negative (NEGATIVE) Urine Collection Type U cath Urine Color [place] Urine Clarity Cloudy Urine pH 7.5 (<5.0-8.0) Urine Specific Normal 1.020 (1.000-1.030) Urine Protein 100 mg/dL (NEG-TRACE) Urine Glucose (UA) Negative mg/dL (NEG) Urine Ketones (Stick) Trace mg/dL (NEG) Urine Blood Moderate (NEG) Urine Nitrite Positive (NEG) Urine Bilirubin Small (NEG) Urine Urobilinogen Dipstick 1.0 mg/dL (0.2 mg/dL) Urine Leukocyte Esterase Large (NEG) Urine RBC 6-10 /HPF (0-2) Urine WBC >40 /HPF (0-4) Urine Squamous Epithelial Cells Few /LPF Urine Bacteria Many /HPF (0-FEW) Urine Hyaline Casts Occasional /HPF Urine Mucus Slight /LPF White Blood Count 10.7 x10^3/uL (4.0-11.0) Red Blood Count 3.66 x10^6/uL (3.50-5.40) Hemoglobin 12.3 g/dL (12.0-15.5) Hematocrit 36.6 % (36.0-47.0) Mean Corpuscular Volume 100 fL (79-100) Mean Corpuscular Hemoglobin 34 pg (25-35) Mean Corpuscular Hemoglobin Concent 34 g/dL (31-37) Red Cell Distribution Width 13.1 % (11.5-14.5) Platelet Count 200 x10^3/uL (140-400) Neutrophils (%) (Auto) 80 % (31-73) Lymphocytes (%) (Auto) 12 % (24-48) Monocytes (%) (Auto) 8 % (0-9) Eosinophils (%) (Auto) 1 % (0-3) Basophils (%) (Auto) 1 % (0-3) Neutrophils # (Auto) 8.5 x10^3/uL (1.8-7.7) Lymphocytes # (Auto) 1.2 x10^3/uL (1.0-4.8) Monocytes # (Auto) 0.8 x10^3/uL (0.0-1.1) Eosinophils # (Auto) 0.1 x10^3/uL (0.0-0.7) Basophils # (Auto) 0.1 x10^3/uL (0.0-0.2) Sodium Level 134 mmol/L (136-145) Potassium Level 4.5 mmol/L (3.5-5.1) Chloride Level 99 mmol/L (98-107) Carbon Dioxide Level 22 mmol/L (21-32) Anion Gap 13 (6-14) Blood Urea Nitrogen 23 mg/dL (7-20) Creatinine 1.6 mg/dL (0.6-1.0) Estimated GFR (Cockcroft-Gault) 30.3 BUN/Creatinine Ratio 14 (6-20) Glucose Level 97 mg/dL (70-99) Calcium Level 10.0 mg/dL (8.5-10.1) Total Bilirubin 0.5 mg/dL (0.2-1.0) Aspartate Amino Transf (AST/SGOT) 26 U/L (15-37) Alanine Aminotransferase (ALT/SGPT) 17 U/L (14-59) Alkaline Phosphatase 62 U/L (46-116) Total Protein 7.2 g/dL (6.4-8.2) Albumin 3.7 g/dL (3.4-5.0) Albumin/Globulin Ratio 1.1 (1.0-1.7) Laboratory Tests Test 03/15/21 09:00 03/15/21 09:02 03/15/21 09:20 SARS-CoV-2 Antigen (Rapid) Negative (NEGATIVE) Urine Collection Type U cath Urine Color [place] Urine Clarity Cloudy Urine pH 7.5 (<5.0-8.0) Urine Specific Normal 1.020 (1.000-1.030) Urine Protein 100 mg/dL (NEG-TRACE) Urine Glucose (UA) Negative mg/dL (NEG) Urine Ketones (Stick) Trace mg/dL (NEG) Urine Blood Moderate (NEG) Urine Nitrite Positive (NEG) Urine Bilirubin Small (NEG) Urine Urobilinogen Dipstick 1.0 mg/dL (0.2 mg/dL) Urine Leukocyte Esterase Large (NEG) Urine RBC 6-10 /HPF (0-2) Urine WBC >40 /HPF (0-4) Urine Squamous Epithelial Cells Few /LPF Urine Bacteria Many /HPF (0-FEW) Urine Hyaline Casts Occasional /HPF Urine Mucus Slight /LPF White Blood Count 10.7 x10^3/uL (4.0-11.0) Red Blood Count 3.66 x10^6/uL (3.50-5.40) Hemoglobin 12.3 g/dL (12.0-15.5) Hematocrit 36.6 % (36.0-47.0) Mean Corpuscular Volume 100 fL (79-100) Mean Corpuscular Hemoglobin 34 pg (25-35) Mean Corpuscular Hemoglobin Concent 34 g/dL (31-37) Red Cell Distribution Width 13.1 % (11.5-14.5) Platelet Count 200 x10^3/uL (140-400) Neutrophils (%) (Auto) 80 % (31-73) Lymphocytes (%) (Auto) 12 % (24-48) Monocytes (%) (Auto) 8 % (0-9) Eosinophils (%) (Auto) 1 % (0-3) Basophils (%) (Auto) 1 % (0-3) Neutrophils # (Auto) 8.5 x10^3/uL (1.8-7.7) Lymphocytes # (Auto) 1.2 x10^3/uL (1.0-4.8) Monocytes # (Auto) 0.8 x10^3/uL (0.0-1.1) Eosinophils # (Auto) 0.1 x10^3/uL (0.0-0.7) Basophils # (Auto) 0.1 x10^3/uL (0.0-0.2) Sodium Level 134 mmol/L (136-145) Potassium Level 4.5 mmol/L (3.5-5.1) Chloride Level 99 mmol/L (98-107) Carbon Dioxide Level 22 mmol/L (21-32) Anion Gap 13 (6-14) Blood Urea Nitrogen 23 mg/dL (7-20) Creatinine 1.6 mg/dL (0.6-1.0) Estimated GFR (Cockcroft-Gault) 30.3 BUN/Creatinine Ratio 14 (6-20) Glucose Level 97 mg/dL (70-99) Calcium Level 10.0 mg/dL (8.5-10.1) Total Bilirubin 0.5 mg/dL (0.2-1.0) Aspartate Amino Transf (AST/SGOT) 26 U/L (15-37) Alanine Aminotransferase (ALT/SGPT) 17 U/L (14-59) Alkaline Phosphatase 62 U/L (46-116) Total Protein 7.2 g/dL (6.4-8.2) Albumin 3.7 g/dL (3.4-5.0) Albumin/Globulin Ratio 1.1 (1.0-1.7) Images: Images PROCEDURE: CT HEAD WO CONTRAST EXAM: Head CT without contrast. HISTORY: Fall. TECHNIQUE: Computed tomographic images of the head were obtained without contrast. *One or more of the following individualized dose reduction techniques were utilized for this examination: 1. Automated exposure control. 2. Adjustment of the mA and/or kV according to patient size. 3. Use of iterative reconstruction technique. COMPARISON: 03/18/2019. FINDINGS: There is no acute or subacute extra-axial or intraparenchymal hemorrhage. There is no mass effect or midline shift. There is no hydrocephalus. There are areas of decreased attenuation within the cerebral white matter, nonspecific and likely related to chronic small vessel disease. There is cerebral volume loss. There is no suspicious calvarial lesion. The mastoid air cells are clear. There is evidence of lens surgery. There is complete opacification of the right maxillary sinus and there is right maxillary sinus wall thickening due to chronic sinusitis. There is also mucosal thickening or mucus retention cyst within the right frontal sinus. There is dehiscence or destruction of the medial right maxillary sinus wall due to a partially calcified masslike lesion extending into the nasal cavity measuring approximately 3.4 cm. This is partially included on the [id number] on the prior exam. IMPRESSION: 1. No acute intracranial finding. Note is made that MRI is more sensitive for acute infarction. 2. Cerebral volume loss and cerebral white matter changes due to chronic small vessel disease. 3. Partially calcified masslike lesion extending from the right maxillary sinus to the nasal cavity, partially included on the [id number] on the study performed 03/18/2019 and likely due to sequela of chronic fungal sinusitis or mucocele. The absence of significant interval change does not favor malignancy. Assessment/Plan Assessment/Plan Acute cystitis Acute infectious versus metabolic encephalopathy KENYA due to vasomotor nephropathy Mild hyponatremia 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 History of hypertension History of GERD Admit to hospitalist service for further management Delirium prevention protocol Continue empiric IV antibiotics Pending urine cultures Continue IV fluids Trend creatinine Monitor urine output Strict I/O Fall precautions PT OT evaluation Orthostatic vital signs Lovenox for DVT prophylaxis Protonix GI prophylaxis Cardiac diet CODE STATUS full Discussed with RN and SW Disposition inpatient management as above DPOA: Sister, Margoth Mauro In addition to my E/M visit, advance care planning done with A total time of 20 minutes was spent from 12:00 to 1220 face to face with son at bedside in discussion regarding the patient's goals of care, CODE STATUS. Justifications for Admission Other Justification ROSALINDA MONAHAN MD Mar 15, 2021 13:03
[2021-03-15] MEDS ORDERED: LORazepam 0.5 MG TABLET PO PRN (13:15)
[2021-03-15] MEDS ORDERED: SENNOSIDES 8.6 MG TABLET PO PRN (13:15)
[2021-03-15] MEDS ORDERED: PROCHLORPERAZINE 10 MG/2 ML VIAL. IV PRN (13:15)
[2021-03-15] MEDS ORDERED: DOCUSATE SODIUM 100 MG CAPSULE. PO PRN (13:15)
[2021-03-15] MEDS ORDERED: DEXTROSE 50% 25 GM / 50ML DISP.SYRIN. IV PRN (13:15)
[2021-03-15] MEDS ORDERED: PANTOPRAZOLE 40 MG TABLET.DR. PO SCH (14:00)
[2021-03-15 15:00] VITALS: BP 136/64
[2021-03-15] MEDS: cefTRIAXone IV Push 1 GM VIAL. IVP SCH (17:30)
[2021-03-15] MEDS: ENOXAPARIN 30 MG/0.3 ML SYRINGE. SQ SCH (17:30)
[2021-03-15 19:00] VITALS: BP 144/72
[2021-03-15] MEDS: PANTOPRAZOLE 40 MG TABLET.DR. PO SCH (22:28)
[2021-03-15] MEDS: CARVEDILOL 12.5 MG TABLET. PO SCH (22:29)
[2021-03-15] MEDS: ZOLPIDEM 5 MG TABLET. PO PRN (22:36)
[2021-03-15 23:00] VITALS: BP 124/53
[2021-03-16] VITALS (7 sets, daily range): BP systolic 122–161; BP diastolic 51–85
[2021-03-16 06:33] LABS: BASO # 0.1 x10^3/uL (0.0-0.2); BASO % 1 % (0-3); EOS # 0.1 x10^3/uL (0.0-0.7); EOS % 2 % (0-3); HEMATOCRIT 35.4 % (36.0-47.0); HEMOGLOBIN 11.5 g/dL (12.0-15.5); LYMPH # 1.8 x10^3/uL (1.0-4.8); LYMPH % 20 % (24-48); MEAN CORPUSCULAR HEMOGLOBIN 33 pg (25-35); MEAN CORPUSCULAR HGB CONC 33 g/dL (31-37); MEAN CORPUSCULAR VOLUME 102 fL (79-100); MONO # 0.9 x10^3/uL (0.0-1.1); MONO % 10 % (0-9); NEUT # 6.2 x10^3/uL (1.8-7.7); NEUT % 68 % (31-73); PLATELET COUNT 197 x10^3/uL (140-400); RED BLOOD COUNT 3.49 x10^6/uL (3.50-5.40); RED CELL DISTRIBUTION WIDTH 13.4 % (11.5-14.5); WHITE BLOOD COUNT 9.1 x10^3/uL (4.0-11.0)
[2021-03-16 06:47] LABS: CALCIUM 9.3 mg/dL (8.5-10.1); CREATININE 1.4 mg/dL (0.6-1.0); GFR 35.4; MAGNESIUM 1.6 mg/dL (1.8-2.4); PHOSPHORUS 2.7 mg/dL (2.6-4.7); POTASSIUM 4.1 mmol/L (3.5-5.1)
--- NOTE | 2021-03-16 07:26 | RAD ---
CT HEAD/BRAIN WO Date: 03/16/2021 6:33 AM Clinical Indication: HEAD ONLY /PT FELL BACK TO FLOOR Comparison: 03/15/2021, 03/18/2019. Technique: 5 mm axial tomographic images were obtained of the head without contrast. These were view ed on brain and bone windows. One or more of the following dose reduction techniques were utilized: A utomated exposure control (AEC), Adjustment of mA and/or kV according to patient size, Use of iterati ve reconstruction technique such as ASiR, CT scan done according to ALARA and image gently/image ramesh ly Findings: Mild nonspecific periventricular hypoattenuation is most consistent with chronic small vessel ischemi c disease. Mild cerebral volume loss. No intra- or extra-axial mass or fluid collection. No acute hem orrhage. The ventricles are normal in size, shape, and morphology. The wharton-white matter junction is normal. The subarachnoid cisterns are patent. Stable opacified right maxillary sinus with mucoperiosteal reaction and calcified mass extending into the nasal cavity. The visualized portions of the orbits and globes are normal. The mastoid air cell s are clear. The salesperson pianos and organs topogram shows no lytic lesion or fracture. Impression: No acute intracranial process. Electronically signed by: Toribio Leach MD (03/16/2021 7:23 AM) [id number]
[2021-03-16] MEDS ORDERED: CARVEDILOL 12.5 MG TABLET. PO SCH (08:00)
--- NOTE | 2021-03-16 08:00 | NUR ---
Incident report: Pt attempted to go to bathroom with walker and without assistance and fell. Pt found on floor belly down 05[address] Right elbow skin tear, left arm bruise, pt verbalized hip pain. Patient was told several times to call before attempting to get out of bed, 2 times I assisted pt to bathroom and coming back finding patient back in bed without her calling to get help from the bathroom. I explained to her again the importance of waiting for assistance. I attempted to place Pure wick but pt refused. Vital signs WDL, , HERO notified.
--- NOTE | 2021-03-16 08:04 | RAD ---
XR ELBOW_RIGHT DATE: 03/16/2021 7:01 AM INDICATION: PT FELL after CT COMPARISON: None. FINDINGS: Bones: There is no evidence of acute fracture or dislocation. Joints: Mild degenerative changes. There is no joint effusion. Miscellaneous: None. IMPRESSION: No evidence of acute fracture. Electronically signed by: Toribio Leach MD (03/16/2021 8:02 AM) [id number]
--- NOTE | 2021-03-16 08:09 | RAD ---
XR HIP (WITH OR WITHOUT PELVIS) 1 VIEW DATE: 03/16/2021 7:01 AM INDICATION: PT FELL after CT COMPARISON: None. FINDINGS: Bones: There is no evidence of acute fracture or dislocation. Joints: Mild degenerative changes of the hips, SI joints, and symphysis pubis Miscellaneous: None. IMPRESSION: No evidence of acute fracture. Electronically signed by: Toribio Leach MD (03/16/2021 8:06 AM) [id number]
[2021-03-16] MEDS ORDERED: MAGNESIUM SULFATE 2GM 50 ML IV ONE (08:15)
[2021-03-16] MEDS: CARVEDILOL 12.5 MG TABLET. PO SCH ×2 (08:50→17:47)
[2021-03-16] MEDS: ACETAMINOPHEN 325 MG TABLET. PO PRN (08:50)
[2021-03-16] MEDS: ENOXAPARIN 30 MG/0.3 ML SYRINGE. SQ SCH (08:51)
[2021-03-16] MEDS: IV NORMAL SALINE 1000ML BAG 1,000 ML IV SCH ×2 (09:15→12:16)
[2021-03-16] MEDS: HYDROcodone/APAP 5/325MG 1 TAB TABLET PO PRN ×2 (11:29→17:46)
[2021-03-16] MEDS: cefTRIAXone IV Push 1 GM VIAL. IVP SCH (14:32)
--- NOTE | 2021-03-16 15:30 | NUR ---
Pt. working with PT/OT, c/o back and hip pain. Dr.Wu miguel.
--- NOTE | 2021-03-16 15:50 | NUR ---
Radiology called to verify hip/pelvis xray result that is listed as 03/15/21 but the dictation is listed as 03/16/21. dental equipment technician stated the dictated xray result was the one taken this am and read approx 0700.
--- NOTE | 2021-03-16 16:05 | PDOC ---
[facility] PROGRESS NOTE Date of Service DOS: DATE: 03/16/21 TIME: 16:00 Chief Complaint Chief Complaint Assessment/Plan Acute cystitis Acute infectious versus metabolic encephalopathy KENYA due to vasomotor nephropathy Mild hyponatremia 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 History of hypertension History of GERD Pending orthostatic vital signs Pending PT/OT evaluation and recommendations Delirium prevention protocol Continue empiric IV antibiotics Pending urine cultures Continue IV fluids Trend creatinine Monitor urine output Strict I/O Fall precautions PT OT evaluation Orthostatic vital signs Lovenox for DVT prophylaxis Protonix GI prophylaxis Cardiac diet CODE STATUS full Discussed with RN and SW Disposition inpatient management as above DPOA: Sister, Margoth Mauro History of Present Illness History of Present Illness 89-year-old female with past medical history of hypertension and 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 Patient lives at home with sister and daughter. Sister is a nurse and daughter is the m ain caregiver. Apparently in the past few days patient has been having more urinary frequency and falls. She does not usually use any walking device. Son is at bedside is able to provide history along with the patient. They also noticed that the patient was having some bouts of confusion which is not normal for her. Patient has hard of hearing and is able to answer some questions appropriately. Patient denies any suprapubic discomfort or dysuria. She does admit to a fall from ground-level yesterday due to slipping and admits to striking her head but denies loss of consciousness, nausea or vomiting or amnesia to events. She is not on any blood thinners. Patient denies any chest pain, fevers, nausea vomiting, abdominal pain, hematuria or diarrhea. 03/16/21 No acute events overnight. Pt apparently had a fall from commode this morning and complained of right hip and elbow pain. Also complained of headache. CT head and XR of Right elbow and Hip was obtained. Negative for any acute fractures. Lortab 5/325 was started for pain, but this was not controlled well. Escalated with IV morphine for breakthrough pain and will watch overnight. No urinary symptoms or complaints. Despite incident this morning, patient is less confused and AAOx3. AF and VSS. Vitals/I&O Vitals/I&O: Vital Signs Date Time Temp Pulse Resp B/P (MAP) Pulse Ox O2 Delivery O2 Flow Rate FiO2 03/16/21 11:29 Room Air 03/16/21 11:00 97.9 82 16 145/78 (100) 97 97.9 I & O 03/15/21 03/15/21 03/16/21 15:00 23:00 07:00 Intake Total 1000 ml 300 ml Balance 1000 ml 300 ml Physical Exam General: Alert, Oriented X3, Cooperative Heart: Regular rate Lungs: Clear, Other Abdomen: Normal bowel sounds Extremities: No clubbing Labs Labs: Laboratory Tests Test 03/16/21 04:20 White Blood Count 9.1 x10^3/uL (4.0-11.0) Red Blood Count 3.49 x10^6/uL (3.50-5.40) Hemoglobin 11.5 g/dL (12.0-15.5) Hematocrit 35.4 % (36.0-47.0) Mean Corpuscular Volume 102 fL (79-100) Mean Corpuscular Hemoglobin 33 pg (25-35) Mean Corpuscular Hemoglobin Concent 33 g/dL (31-37) Red Cell Distribution Width 13.4 % (11.5-14.5) Platelet Count 197 x10^3/uL (140-400) Neutrophils (%) (Auto) 68 % (31-73) Lymphocytes (%) (Auto) 20 % (24-48) Monocytes (%) (Auto) 10 % (0-9) Eosinophils (%) (Auto) 2 % (0-3) Basophils (%) (Auto) 1 % (0-3) Neutrophils # (Auto) 6.2 x10^3/uL (1.8-7.7) Lymphocytes # (Auto) 1.8 x10^3/uL (1.0-4.8) Monocytes # (Auto) 0.9 x10^3/uL (0.0-1.1) Eosinophils # (Auto) 0.1 x10^3/uL (0.0-0.7) Basophils # (Auto) 0.1 x10^3/uL (0.0-0.2) Sodium Level 136 mmol/L (136-145) Potassium Level 4.1 mmol/L (3.5-5.1) Chloride Level 103 mmol/L (98-107) Carbon Dioxide Level 21 mmol/L (21-32) Anion Gap 12 (6-14) Blood Urea Nitrogen 17 mg/dL (7-20) Creatinine 1.4 mg/dL (0.6-1.0) Estimated GFR (Cockcroft-Gault) 35.4 Glucose Level 86 mg/dL (70-99) Calcium Level 9.3 mg/dL (8.5-10.1) Phosphorus Level 2.7 mg/dL (2.6-4.7) Magnesium Level 1.6 mg/dL (1.8-2.4) Assessment and Plan Assessmemt and Plan Problems Medical Problems: (1) Acute cystitis without hematuria Status: Acute (2) Acute metabolic encephalopathy Status: Acute (3) Acute renal insufficiency Status: Acute (4) Dehydration Status: Acute (5) Encounter for medical screening examination Status: Acute Comment Review of Relevant I have reviewed the following items jazmine (where applicable) has been applied. Medications: Current Medications Medications (Trade) Dose Ordered Sig/Serina Route PRN Reason Start Time Stop Time Status Last Admin Dose Admin Pantoprazole Sodium (Protonix) 40 mg HS PO 03/15/21 22:00 03/15/21 22:28 Carvedilol (Coreg) 12.5 mg BIDWMEALS PO 03/15/21 22:30 03/16/21 08:50 Magnesium Sulfate 50 ml @ 25 mls/hr 1X ONCE IV 03/16/21 08:15 03/16/21 10:14 DC 03/16/21 08:51 Acetaminophen/ Hydrocodone Bitart (Lortab 5/325) 1 tab PRN Q6HRS PRN PO MODERATE TO SEVERE PAIN 03/16/21 10:15 03/16/21 11:29 Justifications for Admission Other Justification UTI and altered mental status ROSALINDA MONAHAN MD Mar 16, 2021 16:05
[2021-03-16] MEDS: MORPHINE SULFATE 2 MG/ML INJ. IV PRN (16:16)
[2021-03-16] MEDS: ZOLPIDEM 5 MG TABLET. PO PRN (21:43)
[2021-03-16] MEDS: LACTOBACILLUS RHAMNOSUS GG 1 CAPSULE. PO SCH (21:43)
[2021-03-16] MEDS: PANTOPRAZOLE 40 MG TABLET.DR. PO SCH (21:43)
[2021-03-17 03:00] VITALS: BP 172/86
[2021-03-17] MEDS: MORPHINE SULFATE 2 MG/ML INJ. IV PRN (04:03)
[2021-03-17] MEDS: IV NORMAL SALINE 1000ML BAG 1,000 ML IV SCH ×3 (05:15→16:41)
[2021-03-17] MEDS: HYDROcodone/APAP 5/325MG 1 TAB TABLET PO PRN (06:23)
[2021-03-17 07:00] VITALS: BP 159/87
[2021-03-17 08:18] LABS: CALCIUM 9.1 mg/dL (8.5-10.1); CREATININE 1.3 mg/dL (0.6-1.0); GFR 38.6; POTASSIUM 3.9 mmol/L (3.5-5.1)
[2021-03-17] MEDS: LACTOBACILLUS RHAMNOSUS GG 1 CAPSULE. PO SCH ×2 (09:00→21:00)
[2021-03-17] MEDS: ACETAMINOPHEN 325 MG TABLET. PO PRN (09:56)
[2021-03-17] MEDS: ENOXAPARIN 30 MG/0.3 ML SYRINGE. SQ SCH (09:57)
[2021-03-17] MEDS: CARVEDILOL 12.5 MG TABLET. PO SCH ×2 (09:59→17:00)
[2021-03-17 11:00] VITALS: BP 126/74
--- NOTE | 2021-03-17 12:00 | PDOC ---
[facility] PROGRESS NOTE Date of Service DOS: DATE: 03/17/21 TIME: 11:58 Chief Complaint Chief Complaint Assessment/Plan Acute cystitis urine culture with Proteus mirabilis Acute infectious versus metabolic encephalopathy KENYA due to vasomotor nephropathy Mild hyponatremia 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 History of hypertension History of GERD Pending orthostatic vital signs Pending PT/OT evaluation and recommendations Delirium prevention protocol Continue empiric IV antibiotics Pending urine cultures sensitivities Continue IV fluids Trend creatinine Monitor urine output Strict I/O Fall precautions PT OT evaluation Orthostatic vital signs Lovenox for DVT prophylaxis Protonix GI prophylaxis Cardiac diet CODE STATUS full Discussed with RN and SW Disposition inpatient management as above DPOA: Sister, Margoth Mauro History of Present Illness History of Present Illness 89-year-old female with past medical history of hypertension and 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 Patient lives at home with sister and daughter. Sister is a nurse and daughter is the main caregiver. Apparently in the past few days patient has been having more urinary frequency and falls. She does not usually use any walking device. Son is at bedside is able to provide history along with the patient. They also noticed that the patient was having some bouts of confusion which is not normal for her. Patient has hard of hearing and is able to answer some questions appropriately. Patient denies any suprapubic discomfort or dysuria. She does admit to a fall from ground-level yesterday due to slipping and admits to striking her head but denies loss of consciousness, nausea or vomiting or amnesia to events. She is not on any blood thinners. Patient denies any chest pain, fevers, nausea vomiting, abdominal pain, hematuria or diarrhea. 03/16/21 No acute events overnight. Pt apparently had a fall from commode this morning and complained of right hip and elbow pain. Also complained of headache. CT head and XR of Right elbow and Hip was obtained. Negative for any acute fractures. Lortab 5/325 was started for pain, but this was not controlled well. Escalated with IV morphine for breakthrough pain and will watch overnight. No urinary symptoms or complaints. Despite incident this morning, patient is less confused and AAOx3. AF and VSS. 03/17/2021 No acute events overnight. Patient seen and examined bedside. Patient is at her baseline mental status with some confusion according to niece who is at bedside. Patient continues to complain of right hip pain where she fell. Pending PT evaluation before determining if I should scan her vertebrae for fractures from her fall while in the hospital. We will continue to keep her inpatient for IV n.p.o. pain control. Continue IV antibiotics for UTI. Waiting for sensitivities. Patient's chart, labs, images were reviewed and discussed with RN Vitals/I&O Vitals/I&O: Vital Signs Date Time Temp Pulse Resp B/P (MAP) Pulse Ox O2 Delivery O2 Flow Rate FiO2 03/17/21 09:59 103 159/87 03/17/21 08:00 Room Air 03/17/21 07:00 97.8 22 92 97.8 I & O 03/16/21 03/16/21 03/17/21 15:00 23:00 07:00 Intake Total 0 ml 200 ml Output Total 300 ml Balance -300 ml 200 ml Physical Exam General: Alert, Oriented X3, Cooperative Heart: Regular rate Lungs: Clear, Other Abdomen: Normal bowel sounds Extremities: No clubbing Labs Labs: Laboratory Tests Test 03/16/21 17:00 03/17/21 04:50 Glucose (Fingerstick) 117 mg/dL (70-99) Sodium Level 135 mmol/L (136-145) Potassium Level 3.9 mmol/L (3.5-5.1) Chloride Level 102 mmol/L (98-107) Carbon Dioxide Level 21 mmol/L (21-32) Anion Gap 12 (6-14) Blood Urea Nitrogen 17 mg/dL (7-20) Creatinine 1.3 mg/dL (0.6-1.0) Estimated GFR (Cockcroft-Gault) 38.6 Glucose Level 111 mg/dL (70-99) Calcium Level 9.1 mg/dL (8.5-10.1) Magnesium Level 2.0 mg/dL (1.8-2.4) Assessment and Plan Assessmemt and Plan Problems Medical Problems: (1) Acute cystitis without hematuria Status: Acute (2) Acute metabolic encephalopathy Status: Acute (3) Acute renal insufficiency Status: Acute (4) Dehydration Status: Acute (5) Encounter for medical screening examination Status: Acute Comment Review of Relevant I have reviewed the following items jazmine (where applicable) has been applied. Medications: Current Medications Medications (Trade) Dose Ordered Sig/Serina Route PRN Reason Start Time Stop Time Status Last Admin Dose Admin Lactobacillus Rhamnosus (Culturelle) 1 cap BID PO 03/16/21 21:00 03/17/21 09:00 Morphine Sulfate (Morphine Sulfate) 2 mg PRN Q2HR PRN IV PAIN 03/16/21 16:00 03/17/21 04:03 Justifications for Admission Other Justification UTI and altered mental status ROSALINDA MONAHAN MD Mar 17, 2021 11:59
--- NOTE | 2021-03-17 12:05 | NUR ---
pt vomited after one bite of bread. Pt has not been eating well, she did not eat dinner last night, breakfast this morning and now vomited with lunch. Pt is in pain but this nurse does not advise any narcotic pain medication until patient can tolerate food. will continue to monitor,.
--- NOTE | 2021-03-17 14:13 | RAD ---
EXAM: Thoracic and lumbar spine CT without contrast. HISTORY: Fall. TECHNIQUE: Computed tomographic images of the thoracic and lumbar spine were obtained without contras t. Multiplanar reformatting was performed. *One or more of the following individualized dose reduction techniques were utilized for this examina tion: 1. Automated exposure control. 2. Adjustment of the mA and/or kV according to patient size. 3. Use of iterative reconstruction technique. COMPARISON: None. FINDINGS: Thoracic spine: There is mild thoracic levocurvature and kyphosis. There is a mild wedge compression fracture of T3. This is chronic in appearance. There are few osseous hemangiomas and bone islands. Th ere is bone demineralization. There is multilevel facet arthropathy. There is emphysema with biapical pleural parenchymal scarring. There is left greater than right poste rior dependent pleural-based nodular opacity likely due to atelectasis or interstitial infiltrate. Th ere is no pleural effusion. There is calcified atherosclerotic plaque involving the coronary arteries . Lumbar spine: There is mild lumbar scoliosis. There is 5 mm grade 1 anterolisthesis of L5 on S1, 3 mm grade 1 anterolisthesis of L4 on L5 and 2 mm grade 1 anterolisthesis of L2 on L3 and L3 on L4. There is mild rightward lateral translation of L3 on L4. There is a mild L1 compression fracture. This is chronic in appearance. There is a mildly displaced right L1 transverse process fracture. This is acut e in appearance. The sacroiliac joints are intact. There is bone demineralization. There is partial v isualization of an abdominal aortic aneurysm measuring 5.3 cm. There is aortobiiliac atherosclerosis. There is distal sigmoid diverticulosis and there has been partial distal colonic resection. At L1-L2, there is a mild disc bulge. There is mild facet arthropathy. There is no stenosis. At L2-L3, there is mild disc bulge. There is mild bilateral facet arthropathy. There is no stenosis. At L3-L4, there is a mild disc bulge. There is endplate remodeling. There is zrhp-[id number]-[id number] bilater al facet arthropathy. There is mild anterolisthesis. There is mild bilateral foraminal stenosis. Ther e is mild central canal stenosis. At L4-L5, there is a mild disc bulge and endplate remodeling. There is moderate bilateral facet arthr opathy. There is grade 1 anterolisthesis. There is moderate right foraminal stenosis. There is mild c entral canal stenosis. At L5-S1, there is a mild disc bulge and endplate remodeling. There is moderate to severe bilateral f acet arthropathy. There is grade 1 anterolisthesis. There is mild bilateral foraminal stenosis. There is mild central canal stenosis. IMPRESSION: 1. Mild acute appearing displaced fracture of the right L1 transverse process. There are mild chronic appearing fractures of L1 and T3. 2. Multilevel degenerative change involving the thoracic and lumbar spine, described in detail above. This results in stenosis as before mentioned lumbar levels. 3. Bone demineralization. 4. Abdominal aortic aneurysm measuring 5.3 cm on the [id number]-[id number]. 5. Bilateral posterior dependent and basilar atelectasis or interstitial infiltrate superimposed on e mphysema. 6. Sigmoid diverticulosis and evidence of partial colonic resection. Electronically signed by: Silva Santiago MD (03/17/2021 2:10 PM) [id number]
[2021-03-17 15:00] VITALS: BP 167/78
[2021-03-17] MEDS: cefTRIAXone IV Push 1 GM VIAL. IVP SCH (15:22)
--- NOTE | 2021-03-17 16:14 | RAD ---
EXAM: Pelvis CT without contrast. HISTORY: Pain. Falls. TECHNIQUE: Computed tomographic images the pelvis were obtained. *One or more of the following individualized dose reduction techniques were utilized for this examina tion: 1. Automated exposure control. 2. Adjustment of the mA and/or kV according to patient size. 3. Use of iterative reconstruction technique. COMPARISON: Correlation is made with a lumbar spine CT obtained on the same date. FINDINGS: There is slight angulation of the cortex of the right inferior pubic ramus, suggesting a he aled or nearly healed fracture. There is bone demineralization. There are few benign bone islands. Th ere is partial visualization of an infrarenal abdominal aortic aneurysm, measuring 4.9 cm on the fiel d-of-view. There is a left ventral abdominal wall ostomy. There is moderate colonic stool. There are distended loops of small bowel within the left abdomen and there is a transition point to decompresse d small bowel within the left abdomen, favoring partial small bowel obstruction. The bladder is unrem arkable. The uterus is absent. There is no suspicious adnexal lesion. There is no lymphadenopathy. Th ere are foci of gas within the left ventral abdominal wall fat due to medication injection sites. IMPRESSION: 1. Suspected healed or nearly healed right inferior pubic ramus fracture. 2. Bone demineralization. 3. Please refer to the separate report for the lumbar spine CT on the same date for lumbar spine find ings. 4. Infrarenal abdominal aortic aneurysm. This is better characterized on the lumbar spine CT, measuri ng up to 5.3 cm. 5. Distended loops of small bowel throughout the left abdomen with associated transition point due to partial small bowel obstruction. This is partially excluded from the [id number]-dj-shrt. Electronically signed by: Silva Santiago MD (03/17/2021 4:12 PM) [id number]
[2021-03-17] MEDS: ONDANSETRON PF 4 MG/2 ML VIAL. IVP PRN (16:39)
[2021-03-17 17:42] LABS: BASO % 0 % (0-3); EOS # 0.1 x10^3/uL (0.0-0.7); EOS % 1 % (0-3); HEMATOCRIT 36.1 % (36.0-47.0); HEMOGLOBIN 11.7 g/dL (12.0-15.5); LYMPH # 0.6 x10^3/uL (1.0-4.8); LYMPH % 5 % (24-48); MEAN CORPUSCULAR HEMOGLOBIN 33 pg (25-35); MEAN CORPUSCULAR HGB CONC 32 g/dL (31-37); MEAN CORPUSCULAR VOLUME 101 fL (79-100); MONO # 0.6 x10^3/uL (0.0-1.1); MONO % 5 % (0-9); NEUT # 9.5 x10^3/uL (1.8-7.7); NEUT % 88 % (31-73); PLATELET COUNT 151 x10^3/uL (140-400); RED BLOOD COUNT 3.57 x10^6/uL (3.50-5.40); RED CELL DISTRIBUTION WIDTH 13.6 % (11.5-14.5); WHITE BLOOD COUNT 10.7 x10^3/uL (4.0-11.0)
[2021-03-17 19:00] VITALS: BP 135/67
[2021-03-17] MEDS: PANTOPRAZOLE 40 MG TABLET.DR. PO SCH (21:00)
[2021-03-17 23:00] VITALS: BP 136/78
[2021-03-18] MEDS: IV NORMAL SALINE 1000ML BAG 1,000 ML IV SCH ×3 (01:00→22:15)
[2021-03-18] MEDS: MORPHINE SULFATE 2 MG/ML INJ. IV PRN ×2 (01:00→09:21)
[2021-03-18] MEDS: ONDANSETRON PF 4 MG/2 ML VIAL. IVP PRN ×3 (01:00→18:05)
[2021-03-18 03:00] VITALS: BP 133/75
--- NOTE | 2021-03-18 05:59 | NUR ---
no nausea ,no vomiting overnight.
[2021-03-18 07:00] VITALS: BP 140/86
[2021-03-18] MEDS: CARVEDILOL 12.5 MG TABLET. PO SCH ×2 (08:00→17:00)
--- NOTE | 2021-03-18 08:09 | RAD ---
XR ABDOMEN 1V History: Reason: vomiting / Spl. Instructions: / History: Technique: Supine view the abdomen. Comparison: None. Findings: Left mid abdominal ostomy. Moderately dilated loops of small bowel within the left lower abdomen. Air and stool throughout the proximal colon. Surgical clips right upper quadrant. Impression: 1. Moderately dilated small bowel loop within the left lower abdomen, may represent ileus. Recommend follow-up to exclude developing obstruction. Electronically signed by: Maurice Gar DO (03/18/2021 8:07 AM) [id number]
[2021-03-18] MEDS: LACTOBACILLUS RHAMNOSUS GG 1 CAPSULE. PO SCH ×2 (09:00→21:00)
[2021-03-18] MEDS: ENOXAPARIN 30 MG/0.3 ML SYRINGE. SQ SCH (09:22)
[2021-03-18 11:00] VITALS: BP 87/54
[2021-03-18] MEDS ORDERED: PROCHLORPERAZINE 10 MG/2 ML VIAL. IV PRN (14:00)
[2021-03-18 15:00] VITALS: BP 141/78
--- NOTE | 2021-03-18 15:02 | RAD ---
EXAM: Bilateral knees, 2 views. HISTORY: Pain. COMPARISON: 11/26/2019 FINDINGS: 2 views of both knees are obtained. There is a right knee arthroplasty in expected position . There is no evidence of prosthesis loosening or periprosthetic fracture. There is no right knee eff usion. There is severe medial compartment joint space narrowing, subchondral sclerosis and spurring i nvolving the left knee. There is moderate left lateral and patellofemoral compartment spurring. There is a trace left knee effusion. There is left knee chondrocalcinosis. There are joint loose bodies. IMPRESSION: 1. 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 2. Right knee arthroplasty in expected position. Electronically signed by: Silva Santiago MD (03/18/2021 3:00 PM) [id number]
--- NOTE | 2021-03-18 15:24 | PDOC ---
[facility] PROGRESS NOTE Date of Service DOS: DATE: 03/18/21 TIME: 15:01 Chief Complaint Chief Complaint Assessment/Plan L1 transverse process fracture, displaced Partial small bowel obstruction Opioid induced ileus with nausea vomiting AAA measuring 5.3 cm Acute cystitis urine culture with Proteus mirabilis Acute infectious versus metabolic encephalopathy KENYA due to vasomotor nephropathy History of multiple falls Mild hyponatremia 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 History of hypertension History of GERD Pending vascular surgery evaluation for AAA Pending general surgery evaluation for SBO Pending neurosurgery evaluation L1 transverse process fracture Pending orthostatic vital signs Pending PT/OT evaluation and recommendations Delirium prevention protocol Continue empiric IV antibiotics Pending urine cultures sensitivities Continue IV fluids Trend creatinine Monitor urine output Strict I/O Fall precautions PT OT evaluation Orthostatic vital signs Lovenox for DVT prophylaxis Protonix GI prophylaxis Cardiac diet CODE STATUS full Discussed with RN and SW Disposition inpatient management as above DPOA: SisterMargoth History of Present Illness History of Present Illness 89-year-old female with past medical history of hypertension and 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 Patient lives at home with sister and daughter. Sister is a nurse and daughter is the main caregiver. Apparently in the past few days patient has been having more urinary frequency and falls. She does not usually use any walking device. Son is at bedside is able to provide history along with the patient. They also noticed that the patient was having some bouts of confusion which is not normal for her. Patient has hard of hearing and is able to answer some questions appropriately. Patient denies any suprapubic discomfort or dysuria. She does admit to a fall from ground-level yesterday due to slipping and admits to striking her head but denies loss of consciousness, nausea or vomiting or amnesia to events. She is not on any blood thinners. Patient denies any chest pain, fevers, nausea vomiting, abdominal pain, hematuria or diarrhea. 03/16/21 No acute events overnight. Pt apparently had a fall from commode this morning and complained of right hip and elbow pain. Also complained of headache. CT head and XR of Right elbow and Hip was obtained. Negative for any acute fractures. Lortab 5/325 was started for pain, but this was not controlled well. Escalated with IV morphine for breakthrough pain and will watch overnight. No urinary symptoms or complaints. Despite incident this morning, patient is less confused and AAOx3. AF and VSS. 03/17/2021 No acute events overnight. Patient seen and examined bedside. Patient is at her baseline mental status with some confusion according to niece who is at bedside. Patient continues to complain of right hip pain where she fell. Pending PT evaluation before determining if I should scan her vertebrae for fractures from her fall while in the hospital. We will continue to keep her inpatient for IV n.p.o. pain control. Continue IV antibiotics for UTI. Waiting for sensitivities. Patient's chart, labs, images were reviewed and discussed with RN 03/18/2021 No acute events overnight. Patient seen and examined bedside. Episode of vomiting this morning with morphine dose. Improved with Zofran. Patient continues to have minimal output through her colostomy. She continues to have some back pain. Multiple findings and images yesterday which requires evaluation from vascular surgery, general surgery, neurosurgery. Pending their evaluation.. We will keep n.p.o. for now. Patient's chart, labs, images were reviewed and discussed with RN Vitals/I&O Vitals/I&O: Vital Signs Date Time Temp Pulse Resp B/P (MAP) Pulse Ox O2 Delivery O2 Flow Rate FiO2 03/18/21 11:00 97.5 96 18 87/54 (65) 91 Room Air 97.5 03/18/21 03:00 2.0 I & O 03/17/21 03/17/21 03/18/21 15:00 23:00 07:00 Intake Total 100 ml Output Total 300 ml Balance 100 ml -300 ml Physical Exam General: Alert, Oriented X3, Cooperative Heart: Regular rate Lungs: Clear, Other Abdomen: Normal bowel sounds Extremities: No clubbing Labs Labs: Laboratory Tests Test 03/17/21 17:30 03/18/21 04:10 White Blood Count 10.7 x10^3/uL (4.0-11.0) Red Blood Count 3.57 x10^6/uL (3.50-5.40) Hemoglobin 11.7 g/dL (12.0-15.5) Hematocrit 36.1 % (36.0-47.0) Mean Corpuscular Volume 101 fL (79-100) Mean Corpuscular Hemoglobin 33 pg (25-35) Mean Corpuscular Hemoglobin Concent 32 g/dL (31-37) Red Cell Distribution Width 13.6 % (11.5-14.5) Platelet Count 151 x10^3/uL (140-400) Neutrophils (%) (Auto) 88 % (31-73) Lymphocytes (%) (Auto) 5 % (24-48) Monocytes (%) (Auto) 5 % (0-9) Eosinophils (%) (Auto) 1 % (0-3) Basophils (%) (Auto) 0 % (0-3) Neutrophils # (Auto) 9.5 x10^3/uL (1.8-7.7) Lymphocytes # (Auto) 0.6 x10^3/uL (1.0-4.8) Monocytes # (Auto) 0.6 x10^3/uL (0.0-1.1) Eosinophils # (Auto) 0.1 x10^3/uL (0.0-0.7) Basophils # (Auto) 0.0 x10^3/uL (0.0-0.2) Magnesium Level 1.9 mg/dL (1.8-2.4) Assessment and Plan Assessmemt and Plan Problems Medical Problems: (1) Acute cystitis without hematuria Status: Acute (2) Acute metabolic encephalopathy Status: Acute (3) Acute renal insufficiency Status: Acute (4) Dehydration Status: Acute (5) Encounter for medical screening examination Status: Acute Comment Review of Relevant I have reviewed the following items jazmine (where applicable) has been applied. Justifications for Admission Other Justification UTI and altered mental status ROSALINDA MONAHAN MD Mar 18, 2021 15:24
--- NOTE | 2021-03-18 15:51 | PDOC2 ---
CONSULT Date of Service Date of Service DATE: 03/18/21 TIME: 15:36 Reason for Consult Reason for Consult: Abdominal aortic aneurysm Referring Physician Referring Physician: Dr. Jimenez Identification/Chief Complaint Chief Complaint Weakness and confusion, recent falls. 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 Patient is noted to have a urinary tract infection, she also has a small bowel obstruction. During her hospital stay she has fallen and now has a transverse process fracture. Lumbar and thoracic CT scans demonstrate patient has had abdominal aortic aneurysm. The report suggests the aneurysm is 5.3 cm in size but is not in full view. Patient denies any history of abdominal pain or back pain. She denies any history of postprandial pain. Patient denies any history of lower extremity claudication. Patient denies any history of TIA or strokelike symptoms. Currently she denies any nausea or vomiting. She is not producing stool currently in her colostomy. Patient denies any fever or chills. Past Medical History Cardiovascular: HTN Pulmonary: No pertinent hx, Other GI: Diverticulosis Heme/Onc: No pertinent hx Hepatobiliary: No pertinent hx Psych: No pertinent hx Musculoskeletal: Osteoarthritis Rheumatologic: No pertinent hx Infectious disease: No pertinent hx Renal/: UTI Endocrine: No pertinent hx Past Surgical History Past Surgical History: Appendectomy, Cholecystectomy, Cataract Removal, Total knee replacement, Hysterectomy, Other (colostomy, shoulder manipulation) Family History Family History Noncontributory to current problem Family History: No Significant Social History Social History Patient has a remote history of tobacco use in her early 30s ALCOHOL: none Drugs: None Lives: with Family Domestic Violence: Neg Current Problem List Problem List Problems Medical Problems: (1) Acute cystitis without hematuria Status: Acute (2) Acute metabolic encephalopathy Status: Acute (3) Acute renal insufficiency Status: Acute (4) Dehydration Status: Acute (5) Encounter for medical screening examination Status: Acute Current Medications Current Medications Current Medications Sodium Chloride 500 ml @ 500 mls/hr 1X ONCE IV Last administered on 03/15/21at 09:23; Start 03/15/21 at 09:00; Stop 03/15/21 at 09:59; Status DC Acetaminophen (Tylenol) 1,000 mg 1X ONCE PO Last administered on 03/15/21at 09:23; Start 03/15/21 at 09:15; Stop 03/15/21 at 09:16; Status DC Sodium Chloride 500 ml @ 500 mls/hr 1X ONCE IV Last administered on 03/15/21at 10:42; Start 03/15/21 at 10:00; Stop 03/15/21 at 10:59; Status DC Ondansetron HCl (Zofran) 4 mg PRN Q8HRS PRN IVP NAUSEA/VOMITING; Start 03/15/21 at 10:30; Stop 03/15/21 at 13:09; Status DC Sodium Chloride 1,000 ml @ 75 mls/hr [id number] IV Last administered on 03/15/21at 12:39; Start 03/15/21 at 10:30; Stop 03/16/21 at 10:29; Status DC Acetaminophen (Tylenol) 650 mg PRN Q4HRS PRN PO PAIN; Start 03/15/21 at 10:30; Stop 03/15/21 at 13:10; Status DC Sennosides (Senna) 17.2 mg PRN BID PRN PO CONSTIPATION; Start 03/15/21 at 13:15 Docusate Sodium (Colace) 100 mg PRN DAILY PRN PO HARD STOOLS; Start 03/15/21 at 13:15 Ondansetron HCl (Zofran) 4 mg PRN Q6HRS PRN IVP NAUSEA/VOMITING Last administered on 03/18/21at 09:38; Start 03/15/21 at 13:15 Dextrose (Dextrose 50%-Water Syringe) 12.5 gm PRN Q15MIN PRN IV SEE COMMENTS; Start 03/15/21 at 13:15 Sodium Chloride 1,000 ml @ 100 mls/hr Q10H IV Last administered on 03/18/21at 10:30; Start 03/15/21 at 13:15 Acetaminophen (Tylenol) 650 mg PRN Q4HRS PRN PO TEMP OVER 100.4F OR MILD PAIN Last administered on 03/17/21at 09:56; Start 03/15/21 at 13:15 Lorazepam (Ativan) 0.5 mg PRN Q6HRS PRN PO ANXIETY / AGITATION; Start 03/15/21 at 13:15 Lorazepam (Ativan Inj) 0.25 mg PRN Q4HRS PRN IV ANXIETY / AGITATION; Start 03/15/21 at 13:15 Enoxaparin Sodium (Lovenox 30mg Syringe) 30 mg DAILY SQ Last administered on 03/18/21at 09:22; Start 03/15/21 at 14:00 Pantoprazole Sodium (Protonix) 40 mg DAILYAC PO Last administered on 03/15/21at 17:30; Start 03/15/21 at 14:00; Stop 03/15/21 at 21:58; Status DC Ceftriaxone Sodium (Rocephin) 1 gm Q24H IVP Last administered on 03/17/21at 15:22; Start 03/15/21 at 14:00; Stop 03/18/21 at 13:59; Status DC Prochlorperazine Edisylate (Compazine) 10 mg PRN Q6HRS PRN IV NAUSEA/VOMITING 2ND CHOICE Last administered on 03/18/21at 14:17; Start 03/15/21 at 13:15 Zolpidem Tartrate (Ambien) 2.5 mg PRN QHS PRN PO INSOMNIA Last administered on 03/16/21at 21:43; Start 03/15/21 at 13:15 Carvedilol (Coreg) 12.5 mg BIDWMEALS PO ; Start 03/16/21 at 08:00; Stop 1 05/16/20 at 22:15; Status DC Pantoprazole Sodium (Protonix) 40 mg HS PO Last administered on 03/16/21at 21:43; Start 03/15/21 at 22:00 Carvedilol (Coreg) 12.5 mg BIDWMEALS PO Last administered on 03/17/21at 09:59; Start 03/15/21 at 22:30 Magnesium Sulfate 50 ml @ 25 mls/hr 1X ONCE IV Last administered on 03/16/21at 08:51; Start 03/16/21 at 08:15; Stop 03/16/21 at 10:14; Status DC Acetaminophen/ Hydrocodone Bitart (Lortab 5/325) 1 tab PRN Q6HRS PRN PO MODERATE TO SEVERE PAIN Last administered on 03/17/21at 06:23; Start 03/16/21 at 10:15; Stop 03/17/21 at 10:09; Status DC Lactobacillus Rhamnosus (Culturelle) 1 cap BID PO Last administered on 03/17/21at 09:00; Start 03/16/21 at 21:00 Morphine Sulfate (Morphine Sulfate) 2 mg PRN Q2HR PRN IV PAIN Last administered on 03/18/21at 09:21; Start 03/16/21 at 16:00 Acetaminophen/ Hydrocodone Bitart (Lortab 5/325) 2 tab PRN Q6HRS PRN PO MODERATE TO SEVERE PAIN; Start 03/17/21 at 10:15 Prochlorperazine Edisylate (Compazine) 10 mg PRN Q6HRS PRN IV NAUSEA/VOMITING; Start 03/18/21 at 14:00; Status UNV Active Scripts Active Proair Hfa Inhaler (Albuterol Sulfate) 8.5 Gm Hfa.aer.ad 2 Puff IH PRN Q4-6HRS PRN 21 Days Tessalon Perle (Benzonatate) 100 Mg Capsule 1 Cap PO TID Percocet 5-325 Mg Tablet (Oxycodone/Acetaminophen) 1 Each Tablet 1 Tab PO PRN Q6HRS PRN Amoxicillin 500 Mg Capsule 1 Cap PO Q8HRS Protonix (Pantoprazole Sodium) 40 Mg Tablet 40 Mg PO DAILYAC Reported Probiotic (Lactobacillus Combination No.4) 1 Each Capsule 1 Each PO DAILY08 Coreg (Carvedilol) 12.5 Mg Tablet 1 Tab PO BID Avapro (Irbesartan) 150 Mg Tablet 150 Mg PO DAILY Allergies Allergies: Coded Allergies: atropine (Verified Allergy, Severe, "COMA", 07/22/14) grape (Verified Allergy, Severe, 12/09/14) Convulsion-like reaction adhesive (Verified Allergy, Intermediate, 10/10/14) ROS Review of System Constitutional: Denies fever or chills Eyes: Denies any visual disturbances HENT: Denies nasal congestion or sore throat Respiratory: Denies cough or shortness of breath Cardiovascular: Denies any palpitations or chest pain GI: Denies abdominal pain, nausea, vomiting, bloody stools or diarrhea. Positive for diminished appetite : Denies dysuria or hematuria Musculoskeletal: As per HPI Integument: Denies any ulcerations or rashes. Neurologic: No gross deficits, history of gait imbalance with falls Endocrine: Denies excessive thirst or weight loss. Physical Exam Physical Exam General: Alert and oriented X3 HEENT: Atraumatic, Pupils equal, round. Mucous membranes moist. Neck: Supple, no lymphadenopathy. Cardiac: Heart rate regular. Normal carotid pulses. Lungs: CTA, non-labored respirations. Abdomen: Soft, nontender, nondistended, palpable midline pulse. Hypoactive BS. Colostomy without stool present. Well healed midline incision. Extremities: 2+ palpable bilateral femoral and popliteal pulses. Weakly palpable dorsalis pedis pulses. Musculoskeletal: Gait steady. Moving all extremities. Skin: Warm, pink, dry and intact. No rashes or lesions Neurological: Motor and sensation intact. Psychiatry: No depression or anxiety Vitals VITALS Vital Signs Date Time Temp Pulse Resp B/P (MAP) Pulse Ox O2 Delivery O2 Flow Rate FiO2 03/18/21 11:00 97.5 96 18 87/54 (65) 91 Room Air 97.5 03/18/21 03:00 2.0 Labs Labs Laboratory Tests Test 03/16/21 17:00 03/17/21 04:50 03/17/21 17:30 03/18/21 04:10 Glucose (Fingerstick) 117 mg/dL (70-99) Sodium Level 135 mmol/L (136-145) Potassium Level 3.9 mmol/L (3.5-5.1) Chloride Level 102 mmol/L (98-107) Carbon Dioxide Level 21 mmol/L (21-32) Anion Gap 12 (6-14) Blood Urea Nitrogen 17 mg/dL (7-20) Creatinine 1.3 mg/dL (0.6-1.0) Estimated GFR (Cockcroft-Gault) 38.6 Glucose Level 111 mg/dL (70-99) Calcium Level 9.1 mg/dL (8.5-10.1) Magnesium Level 2.0 mg/dL (1.8-2.4) 1.9 mg/dL (1.8-2.4) White Blood Count 10.7 x10^3/uL (4.0-11.0) Red Blood Count 3.57 x10^6/uL (3.50-5.40) Hemoglobin 11.7 g/dL (12.0-15.5) Hematocrit 36.1 % (36.0-47.0) Mean Corpuscular Volume 101 fL (79-100) Mean Corpuscular Hemoglobin 33 pg (25-35) Mean Corpuscular Hemoglobin Concent 32 g/dL (31-37) Red Cell Distribution Width 13.6 % (11.5-14.5) Platelet Count 151 x10^3/uL (140-400) Neutrophils (%) (Auto) 88 % (31-73) Lymphocytes (%) (Auto) 5 % (24-48) Monocytes (%) (Auto) 5 % (0-9) Eosinophils (%) (Auto) 1 % (0-3) Basophils (%) (Auto) 0 % (0-3) Neutrophils # (Auto) 9.5 x10^3/uL (1.8-7.7) Lymphocytes # (Auto) 0.6 x10^3/uL (1.0-4.8) Monocytes # (Auto) 0.6 x10^3/uL (0.0-1.1) Eosinophils # (Auto) 0.1 x10^3/uL (0.0-0.7) Basophils # (Auto) 0.0 x10^3/uL (0.0-0.2) Laboratory Tests Test 03/17/21 17:30 03/18/21 04:10 White Blood Count 10.7 x10^3/uL (4.0-11.0) Red Blood Count 3.57 x10^6/uL (3.50-5.40) Hemoglobin 11.7 g/dL (12.0-15.5) Hematocrit 36.1 % (36.0-47.0) Mean Corpuscular Volume 101 fL (79-100) Mean Corpuscular Hemoglobin 33 pg (25-35) Mean Corpuscular Hemoglobin Concent 32 g/dL (31-37) Red Cell Distribution Width 13.6 % (11.5-14.5) Platelet Count 151 x10^3/uL (140-400) Neutrophils (%) (Auto) 88 % (31-73) Lymphocytes (%) (Auto) 5 % (24-48) Monocytes (%) (Auto) 5 % (0-9) Eosinophils (%) (Auto) 1 % (0-3) Basophils (%) (Auto) 0 % (0-3) Neutrophils # (Auto) 9.5 x10^3/uL (1.8-7.7) Lymphocytes # (Auto) 0.6 x10^3/uL (1.0-4.8) Monocytes # (Auto) 0.6 x10^3/uL (0.0-1.1) Eosinophils # (Auto) 0.1 x10^3/uL (0.0-0.7) Basophils # (Auto) 0.0 x10^3/uL (0.0-0.2) Magnesium Level 1.9 mg/dL (1.8-2.4) Assessment/Plan Assessment/Plan 89-year-old female with urinary tract infection, small bowel obstruction and transverse process fracture with incidental note of abdominal aortic aneurysm on CT scan. The lumbar and thoracic CT scans do not demonstrate the full image of the aneurysm. Currently the aneurysm appears to be asymptomatic. Would recommend further imaging to better evaluate the aneurysm and its size as well as location to her renal arteries. Will order a CT with noncontrast due to her renal insufficiency. We will also order bilateral lower extremity ultrasounds to evaluate her popliteal arteries for possible aneurysms. We will make further recommendations pending the results of the CT scan. If the aneurysm location does not allow her to be an endovascular candidate then she would be a very high risk candidate for any type of open operation. In any event we would allow her to recover some from her infection prior to proceeding with any type of procedure. I did discuss history and physical examination with Dr. Loyd she did review the CT scans. Dr. Tolentino will see the patient tomorrow and make additional recommendations. ONI PAUL APRN Mar 18, 2021 15:51
--- NOTE | 2021-03-18 16:27 | RAD ---
EXAM: Iqbal scale and color Doppler left lower extremity sonogram. HISTORY: Left popliteal fullness. TECHNIQUE: Iqbal scale and color Doppler sonographic imaging of the left popliteal fossa was performed . COMPARISON: None. FINDINGS: The popliteal artery is patent and demonstrates normal caliber. No mass or cyst is seen. IMPRESSION: Unremarkable sonographic imaging of the popliteal fossa. Electronically signed by: Silva Santiago MD (03/18/2021 4:25 PM) [id number]
--- NOTE | 2021-03-18 16:34 | PDOC2 ---
CONSULT Date of Consult Date of Consult DATE: 03/18/21 TIME: 16:30 Reason for Consult Reason for Consult: SBO vs ileus Referring Physician Referring Physician: Dr. Jimenez Identification/Chief Complaint Chief Complaint back pain, N/V Source Source: Caregiver, Chart review, Patient History of Present Illness Reason for Visit: 89 yo F with UTI and multiple falls with concern for back fracture. Pt has been noted to have some N/V and no output from colostomy. She currently denies abd pain. Nausea, but no emesis currently Past Medical History Cardiovascular: HTN Pulmonary: No pertinent hx, Other GI: Diverticulosis Heme/Onc: No pertinent hx Hepatobiliary: No pertinent hx Psych: No pertinent hx Musculoskeletal: Osteoarthritis Rheumatologic: No pertinent hx Infectious disease: No pertinent hx Renal/: UTI Endocrine: No pertinent hx Past Surgical History Past Surgical History: Appendectomy, Cholecystectomy, Cataract Removal, Total knee replacement, Hysterectomy, Other (colostomy, shoulder manipulation) Family History Family History: No Significant Social History ALCOHOL: none Drugs: None Lives: with Family Domestic Violence: Neg Current Problem List Problem List Problems Medical Problems: (1) Acute cystitis without hematuria Status: Acute (2) Acute metabolic encephalopathy Status: Acute (3) Acute renal insufficiency Status: Acute (4) Dehydration Status: Acute (5) Encounter for medical screening examination Status: Acute Current Medications Current Medications Current Medications Sodium Chloride 500 ml @ 500 mls/hr 1X ONCE IV Last administered on 03/15/21at 09:23; Start 03/15/21 at 09:00; Stop 03/15/21 at 09:59; Status DC Acetaminophen (Tylenol) 1,000 mg 1X ONCE PO Last administered on 03/15/21at 09:23; Start 03/15/21 at 09:15; Stop 03/15/21 at 09:16; Status DC Sodium Chloride 500 ml @ 500 mls/hr 1X ONCE IV Last administered on 03/15/21at 10:42; Start 03/15/21 at 10:00; Stop 03/15/21 at 10:59; Status DC Ondansetron HCl (Zofran) 4 mg PRN Q8HRS PRN IVP NAUSEA/VOMITING; Start 03/15/21 at 10:30; Stop 03/15/21 at 13:09; Status DC Sodium Chloride 1,000 ml @ 75 mls/hr [id number] IV Last administered on 03/15/21at 12:39; Start 03/15/21 at 10:30; Stop 03/16/21 at 10:29; Status DC Acetaminophen (Tylenol) 650 mg PRN Q4HRS PRN PO PAIN; Start 03/15/21 at 10:30; Stop 03/15/21 at 13:10; Status DC Sennosides (Senna) 17.2 mg PRN BID PRN PO CONSTIPATION; Start 03/15/21 at 13:15 Docusate Sodium (Colace) 100 mg PRN DAILY PRN PO HARD STOOLS; Start 03/15/21 at 13:15 Ondansetron HCl (Zofran) 4 mg PRN Q6HRS PRN IVP NAUSEA/VOMITING Last administered on 03/18/21at 09:38; Start 03/15/21 at 13:15 Dextrose (Dextrose 50%-Water Syringe) 12.5 gm PRN Q15MIN PRN IV SEE COMMENTS; Start 03/15/21 at 13:15 Sodium Chloride 1,000 ml @ 100 mls/hr Q10H IV Last administered on 03/18/21at 10:30; Start 03/15/21 at 13:15 Acetaminophen (Tylenol) 650 mg PRN Q4HRS PRN PO TEMP OVER 100.4F OR MILD PAIN Last administered on 03/17/21at 09:56; Start 03/15/21 at 13:15 Lorazepam (Ativan) 0.5 mg PRN Q6HRS PRN PO ANXIETY / AGITATION; Start 03/15/21 at 13:15 Lorazepam (Ativan Inj) 0.25 mg PRN Q4HRS PRN IV ANXIETY / AGITATION; Start 03/15/21 at 13:15 Enoxaparin Sodium (Lovenox 30mg Syringe) 30 mg DAILY SQ Last administered on 03/18/21at 09:22; Start 03/15/21 at 14:00 Pantoprazole Sodium (Protonix) 40 mg DAILYAC PO Last administered on 03/15/21at 17:30; Start 03/15/21 at 14:00; Stop 03/15/21 at 21:58; Status DC Ceftriaxone Sodium (Rocephin) 1 gm Q24H IVP Last administered on 03/17/21at 15:22; Start 03/15/21 at 14:00; Stop 03/18/21 at 13:59; Status DC Prochlorperazine Edisylate (Compazine) 10 mg PRN Q6HRS PRN IV NAUSEA/VOMITING 2ND CHOICE Last administered on 03/18/21at 14:17; Start 03/15/21 at 13:15 Zolpidem Tartrate (Ambien) 2.5 mg PRN QHS PRN PO INSOMNIA Last administered on 03/16/21at 21:43; Start 03/15/21 at 13:15 Carvedilol (Coreg) 12.5 mg BIDWMEALS PO ; Start 03/16/21 at 08:00; Stop 03/15/21 at 22:15; Status DC Pantoprazole Sodium (Protonix) 40 mg HS PO Last administered on 03/16/21at 21:43; Start 03/15/21 at 22:00 Carvedilol (Coreg) 12.5 mg BIDWMEALS PO Last administered on 03/17/21at 09:59; Start 03/15/21 at 22:30 Magnesium Sulfate 50 ml @ 25 mls/hr 1X ONCE IV Last administered on 03/16/21at 08:51; Start 03/16/21 at 08:15; Stop 03/16/21 at 10:14; Status DC Acetaminophen/ Hydrocodone Bitart (Lortab 5/325) 1 tab PRN Q6HRS PRN PO MODERATE TO SEVERE PAIN Last administered on 03/17/21at 06:23; Start 03/16/21 at 10:15; Stop 03/17/21 at 10:09; Status DC Lactobacillus Rhamnosus (Culturelle) 1 cap BID PO Last administered on 03/17/21at 09:00; Start 03/16/21 at 21:00 Morphine Sulfate (Morphine Sulfate) 2 mg PRN Q2HR PRN IV PAIN Last administered on 03/18/21at 09:21; Start 03/16/21 at 16:00 Acetaminophen/ Hydrocodone Bitart (Lortab 5/325) 2 tab PRN Q6HRS PRN PO MODERATE TO SEVERE PAIN; Start 03/17/21 at 10:15 Prochlorperazine Edisylate (Compazine) 10 mg PRN Q6HRS PRN IV NAUSEA/VOMITING; Start 03/18/21 at 14:00; Status UNV Active Scripts Active Proair Hfa Inhaler (Albuterol Sulfate) 8.5 Gm Hfa.aer.ad 2 Puff IH PRN Q4-6HRS PRN 21 Days Tessalon Perle (Benzonatate) 100 Mg Capsule 1 Cap PO TID Percocet 5-325 Mg Tablet (Oxycodone/Acetaminophen) 1 Each Tablet 1 Tab PO PRN Q6HRS PRN Amoxicillin 500 Mg Capsule 1 Cap PO Q8HRS Protonix (Pantoprazole Sodium) 40 Mg Tablet 40 Mg PO DAILYAC Reported Probiotic (Lactobacillus Combination No.4) 1 Each Capsule 1 Each PO DAILY08 Coreg (Carvedilol) 12.5 Mg Tablet 1 Tab PO BID Avapro (Irbesartan) 150 Mg Tablet 150 Mg PO DAILY Allergies Allergies: Coded Allergies: atropine (Verified Allergy, Severe, "COMA", 07/22/14) grape (Verified Allergy, Severe, 12/09/14) Convulsion-like reaction adhesive (Verified Allergy, Intermediate, 10/10/14) ROS Gastrointestinal: Yes Nausea, Yes Vomiting, Yes Constipation Physical Exam General: Alert, Cooperative, No acute distress HEENT: Atraumatic Lungs: Normal air movement Abdomen: Soft, No tenderness, Other (colostomy viable, but no output) Extremities: No clubbing, No cyanosis Skin: No rashes, No breakdown Neuro: Normal speech, Sensation intact Psych/Mental Status: Mood NL Vitals VITALS Vital Signs Date Time Temp Pulse Resp B/P (MAP) Pulse Ox O2 Delivery O2 Flow Rate FiO2 03/18/21 15:00 98.1 85 18 141/78 (99) 97 Nasal Cannula 3.0 98.1 Labs Labs Laboratory Tests Test 03/16/21 17:00 03/17/21 04:50 03/17/21 17:30 03/18/21 04:10 Glucose (Fingerstick) 117 mg/dL (70-99) Sodium Level 135 mmol/L (136-145) Potassium Level 3.9 mmol/L (3.5-5.1) Chloride Level 102 mmol/L (98-107) Carbon Dioxide Level 21 mmol/L (21-32) Anion Gap 12 (6-14) Blood Urea Nitrogen 17 mg/dL (7-20) Creatinine 1.3 mg/dL (0.6-1.0) Estimated GFR (Cockcroft-Gault) 38.6 Glucose Level 111 mg/dL (70-99) Calcium Level 9.1 mg/dL (8.5-10.1) Magnesium Level 2.0 mg/dL (1.8-2.4) 1.9 mg/dL (1.8-2.4) White Blood Count 10.7 x10^3/uL (4.0-11.0) Red Blood Count 3.57 x10^6/uL (3.50-5.40) Hemoglobin 11.7 g/dL (12.0-15.5) Hematocrit 36.1 % (36.0-47.0) Mean Corpuscular Volume 101 fL (79-100) Mean Corpuscular Hemoglobin 33 pg (25-35) Mean Corpuscular Hemoglobin Concent 32 g/dL (31-37) Red Cell Distribution Width 13.6 % (11.5-14.5) Platelet Count 151 x10^3/uL (140-400) Neutrophils (%) (Auto) 88 % (31-73) Lymphocytes (%) (Auto) 5 % (24-48) Monocytes (%) (Auto) 5 % (0-9) Eosinophils (%) (Auto) 1 % (0-3) Basophils (%) (Auto) 0 % (0-3) Neutrophils # (Auto) 9.5 x10^3/uL (1.8-7.7) Lymphocytes # (Auto) 0.6 x10^3/uL (1.0-4.8) Monocytes # (Auto) 0.6 x10^3/uL (0.0-1.1) Eosinophils # (Auto) 0.1 x10^3/uL (0.0-0.7) Basophils # (Auto) 0.0 x10^3/uL (0.0-0.2) Laboratory Tests Test 03/17/21 17:30 03/18/21 04:10 White Blood Count 10.7 x10^3/uL (4.0-11.0) Red Blood Count 3.57 x10^6/uL (3.50-5.40) Hemoglobin 11.7 g/dL (12.0-15.5) Hematocrit 36.1 % (36.0-47.0) Mean Corpuscular Volume 101 fL (79-100) Mean Corpuscular Hemoglobin 33 pg (25-35) Mean Corpuscular Hemoglobin Concent 32 g/dL (31-37) Red Cell Distribution Width 13.6 % (11.5-14.5) Platelet Count 151 x10^3/uL (140-400) Neutrophils (%) (Auto) 88 % (31-73) Lymphocytes (%) (Auto) 5 % (24-48) Monocytes (%) (Auto) 5 % (0-9) Eosinophils (%) (Auto) 1 % (0-3) Basophils (%) (Auto) 0 % (0-3) Neutrophils # (Auto) 9.5 x10^3/uL (1.8-7.7) Lymphocytes # (Auto) 0.6 x10^3/uL (1.0-4.8) Monocytes # (Auto) 0.6 x10^3/uL (0.0-1.1) Eosinophils # (Auto) 0.1 x10^3/uL (0.0-0.7) Basophils # (Auto) 0.0 x10^3/uL (0.0-0.2) Magnesium Level 1.9 mg/dL (1.8-2.4) Images Images KUB concerning for ileus vs SBO Assessment/Plan Assessment/Plan SBO vs ileus will recheck KUB in AM if not improved, will consider NGT and possible SBFT d/w pt's family at bedside. Thanks for consult! RONNI MATOS MD Mar 18, 2021 16:34
--- NOTE | 2021-03-18 17:43 | RAD ---
EXAMINATION: CT abdomen and pelvis without IV contrast. INDICATION:89 years, Female, abdominal aortic aneurysm. TECHNIQUE: Axial CT images of the abdomen and pelvis were obtained. Coronal and sagittal reformatted performed. COMPARISON: CT dated 08/18/2014. Exposure: One or more of the following individualized dose reduction techniques were utilized for thi s examination: 1. Automated exposure control 2. Adjustment of the mA and/or kV according to patient size 3. Use of iterative reconstruction technique. FINDINGS: LOWER CHEST: Dependent subsegmental atelectasis and/or scarring with posterior pleural thickening. Coronary artery atherosclerotic calcifications. ABDOMEN/PELVIS: Within the limitation of noncontrast exam, Fluid-filled distended distal esophagus, stomach and multiple loops of small bowel with transition zo ne seen in the left abdomen where there is mesenteric swirling with mild engorgement of the vasa rect a (series 2 image 53). Small bowel loops distal to the transitional zone is collapsed. Moderate amoun t of stool in the colon. Mild colonic diverticulosis. Left abdominal end colostomy. Lazara pouch wi th sigmoid diverticulosis. Liver, spleen and adrenal glands are unremarkable. Cholecystectomy. Dilated central intrahepatic extr ahepatic ducts with smooth tapering distally, likely secondary to postcholecystectomy status. Severe atrophic pancreas with complete fat replacement. No hydronephrosis or nephrolithiasis in either kidne y. There is a 1.5 cm fluid density lesion in the upper pole left renal cortex, likely simple cyst. No nspecific bilateral perinephric fat stranding. Tortuous abdominal aorta with moderate to severe aortoiliac atherosclerotic calcifications. Redemonst rated infrarenal abdominal aortic aneurysm extends to the aortic bifurcation, the maximum diameter me asures 4.3 cm., Previously measures 3.2 cm. High-grade stenosis at the celiac trunk origin with posts tenotic dilatation, similar to prior exam. High-grade stenosis of the SMA origin with diminutive appe arance of the proximal/mid segment, similar to prior exam. Suggestion of aneurysmal dilation of the I MA measures up to 1.1 cm in diameter, similar to prior exam. Vascular collaterals seen in the left up per and mid abdomen. There is a 3.7 cm soft tissue mass with peripheral calcification in the left abd omen (series 2 image 39), slightly increasing since prior exam which measures 3.3 cm. Trace amount of free fluid in the left lower abdomen, likely reactive. No pneumoperitoneum. No lymphadenopathy in th e abdomen or pelvis by size criteria. Unremarkable urinary bladder. Hysterectomy. MUSCULOSKELETAL STRUCTURES: Postsurgical changes along the anterior abdominal wall. Small fat-containing infraumbilical ventral h ernia. Foci of gas in the subcutaneous tissue of the anterior abdominal wall, likely related to injec tion indication. Calcified injection granulomas in both subcutaneous tissue of the gluteal regions. N o acute osseous process. Multilevel degenerative changes in the spine. Chronic deformity in bilateral inferior pubic rami. Diffuse osteopenia. IMPRESSION: 1. Infrarenal abdominal aortic aneurysm measures up to 4.3 cm, increasing since July 2014 which measur es 3.2 cm in transverse dimension. Abdominal aortic aneurysm measuring 4.0-4.4 cm as above. Recommend follow-up ultrasound or CTA in 1 year per ACR and SVS recommendations. 2. Ill-defined 3.7 cm soft tissue mass with peripheral calcification in the left abdomen, slightly in creasing since 2014 which measures 3.3 cm. 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 3. Partial small bowel obstruction with transitional zone in the left abdomen where there is a mesent danna swirling suggesting of obstructing internal hernia. Surgical consultation is recommended. Electronically signed by: Chuck Rosado MD (03/18/2021 5:41 PM) [id number]
[2021-03-18 19:30] VITALS: BP 157/80
[2021-03-18] MEDS: fentaNYL PF VIAL 100 MCG/2 ML VIAL IVP PRN (19:55)
--- NOTE | 2021-03-18 20:41 | CONS ---
DATE OF CONSULTATION: 03/18/2021 ATTENDING PHYSICIAN: Dr. Dakotah Jimenez. REASON FOR CONSULTATION: The patient was seen at the request of Dr. Jimenez for rehab evaluation. HISTORY OF PRESENT ILLNESS: This is an 89-year-old female with known hypertension, partial colon resection with permanent colostomy for treatment of perforated diverticulitis in 2014, admitted on 03/15/2021 with urinary frequency and multiple falls in the last 3 days prior to the hospitalization. She lives at home with her sister and niece. Sister is a nurse. The patient usually walks without any assistive devices. Also some bouts of confusion in the last few days. She had some decreased acuity of hearing. The patient is status post appendectomy, cholecystectomy, hysterectomy, right total knee arthroplasty about 20 years ago while in [place], right shoulder surgery, left rotator cuff lesion. She gets injection to her left shoulder, left wrist and left knee. Last time, she had injection done about 2-1/2 months ago. SHE IS KNOWN ALLERGIC ATROPINE, GRAPE AND ADHESIVE. The patient since admission had multiple radiological studies. CT scan of the brain done revealed cerebral volume loss and cerebral white matter changes due to small vessel ischemic disease. X-rays of the pelvis and hip revealed degenerative changes in the hips, sacroiliac joint and symphysis pubis. Elbow x-rays failed to reveal any acute abnormality of right elbow. CT scan of the brain repeated on 03/16 failed to reveal any acute lesion. Lumbar and thoracic spine CT scan done on 03/17/2021 revealed mild acute-appearing displaced fracture of right L1 transverse process, mild chronic-appearing compression fractures of L1 and T3, multilevel degenerative changes in the thoracic and lumbar spine with mild central canal stenosis, also spondylolisthesis of L4-L5 and L5-S1. Abdominal aortic aneurysm measuring about 5.3 cm on the field, a few bony demineralization, bilateral posterior dependent and bibasilar atelectasis or interstitial infiltrates superimposed on emphysema, sigmoid diverticulosis and evidence of partial colonic resection. CT scan of the pelvis revealed suspected healed or nearly healed right superior pubic ramus fracture, bony demineralization. KUB revealed mildly dilated small bowel loop within the left lower abdomen may represent ileus. PHYSICAL EXAMINATION: GENERAL: Today revealed an elderly female. She is alert, oriented to time, place, person and circumstance, follows commands appropriately. NEUROLOGIC: She had pain on attempts at moving her lumbar spine, even trying to roll from side to side and also some movement of her right hip. She had crepitus on range of motion of left knee joint and left shoulder joint with tenderness to palpation in that left shoulder and weakness of left rotator cuff muscles. Deep tendon reflexes are decreased overall. She had equal perception of touch and pinprick sensation bilaterally. She had well-healed right total knee arthroplasty scar. She has some bruised skin over left knee dorsal aspect. Other than that, her skin is intact. She had tenderness to palpation over right lower thoracic and lumbar spine and paraspinal muscles. She requires maximum assistance in rolling from side to side. ASSESSMENT: Elderly female with known hypertension, diverticulosis, perforated diverticula, status post permanent colostomy or resection of small bowel with associated partial small-bowel obstruction at the present time with some nausea, recent fall and right L1 transverse process fracture, degenerative changes in the thoracolumbar vertebrae. No clinical evidence of ongoing thoracic or lumbar radiculopathy. Also, old healed right pubic ramus fracture, degenerative changes in the hips and knees, especially left knee, status post right total knee arthroplasty and left rotator cuff arthropathy, degenerative changes of left wrist. Clinical evidence of peripheral neuropathy and decreased acuity of hearing. RECOMMENDATIONS: I agree with the plan for physical therapy and occupational therapy to try her with small abdominal binder as lumbar corset as tolerated. To consider lumbar support brace if her back pain persists. She probably needs transfer to nursing home care unit when medically stable. To obtain x-rays of her knees. Dr. Jimenez, I appreciate asking me to participate in the care of this interesting patient. I will be glad to see her for followup with you on as needed basis. JAX GRAY: Maikel TID: [id number]
[2021-03-18] MEDS: PANTOPRAZOLE 40 MG TABLET.DR. PO SCH (21:00)
[2021-03-18 23:00] VITALS: BP 149/69
[2021-03-19] VITALS (7 sets, daily range): BP systolic 125–184; BP diastolic 71–91
[2021-03-19] MEDS ORDERED: IOHEXOL 300 MG/ML 100ML VIAL. PO ONE (07:45)
[2021-03-19] MEDS ORDERED: CONTRAST GIVEN. MC PRN (07:45)
[2021-03-19] MEDS: CARVEDILOL 12.5 MG TABLET. PO SCH ×2 (08:00→16:54)
[2021-03-19] MEDS: LACTOBACILLUS RHAMNOSUS GG 1 CAPSULE. PO SCH ×2 (08:17→21:00)
--- NOTE | 2021-03-19 08:19 | PDOC ---
SAM SOTELO DEVELOPMENT MANAGER 03/19/21 0819: SURGICAL PROGRESS NOTE DATE: 03/19/21 TIME: 08:18 Subjective no bowel function some pain Vital Signs Vital Signs Date Time Temp Pulse Resp B/P (MAP) Pulse Ox O2 Delivery O2 Flow Rate FiO2 03/19/21 03:15 98.2 88 163/79 (107) 97 Room Air 2.0 98.2 03/18/21 20:25 20 I&O Intake and Output 03/19/21 07:00 Intake Total 1900 ml Output Total 1950 ml Balance -50 ml Intake Oral 0 ml IV Total 700 ml Other 1200 ml Output Urine Total 450 ml Gastric Drainage Total 1500 ml # Voids 2 General: Alert, Oriented X3 HEENT: Other (ng in place) Abdomen: Soft, Other (no stool in ostomy, ttp upper abdomen ) Labs Laboratory Tests Test 03/17/21 17:30 03/18/21 04:10 White Blood Count 10.7 x10^3/uL (4.0-11.0) Red Blood Count 3.57 x10^6/uL (3.50-5.40) Hemoglobin 11.7 g/dL (12.0-15.5) Hematocrit 36.1 % (36.0-47.0) Mean Corpuscular Volume 101 fL (79-100) Mean Corpuscular Hemoglobin 33 pg (25-35) Mean Corpuscular Hemoglobin Concent 32 g/dL (31-37) Red Cell Distribution Width 13.6 % (11.5-14.5) Platelet Count 151 x10^3/uL (140-400) Neutrophils (%) (Auto) 88 % (31-73) Lymphocytes (%) (Auto) 5 % (24-48) Monocytes (%) (Auto) 5 % (0-9) Eosinophils (%) (Auto) 1 % (0-3) Basophils (%) (Auto) 0 % (0-3) Neutrophils # (Auto) 9.5 x10^3/uL (1.8-7.7) Lymphocytes # (Auto) 0.6 x10^3/uL (1.0-4.8) Monocytes # (Auto) 0.6 x10^3/uL (0.0-1.1) Eosinophils # (Auto) 0.1 x10^3/uL (0.0-0.7) Basophils # (Auto) 0.0 x10^3/uL (0.0-0.2) Magnesium Level 1.9 mg/dL (1.8-2.4) Problem List Problems Medical Problems: (1) Acute cystitis without hematuria Status: Acute (2) Acute metabolic encephalopathy Status: Acute (3) Acute renal insufficiency Status: Acute (4) Dehydration Status: Acute (5) Encounter for medical screening examination Status: Acute Assessment/Plan SBFT today Justicifation of Admission Dx: Justifications for Admission: Justification of Admission Dx: Yes Comments: sbo RONNI MATOS MD 03/19/21 1453: SURGICAL PROGRESS NOTE Assessment/Plan Pt seen and examined. Agree with Ms. Sotelo's note Pt appears comfortable abd soft, NTTP, ostomy viable, without stools SBFT ongoing d/w pt's family at bedside SAM SOTELO APRN Mar 19, 2021 08:19 RONNI MATOS MD Mar 19, 2021 14:53
--- NOTE | 2021-03-19 10:10 | PDOC ---
PROGRESS NOTES Date of Service DATE: 03/19/21 TIME: 10:07 Subjective Subjective She feels better with abdominal pain but not passing gases to colostomy. Objective Objective Vital Signs Date Time Temp Pulse Resp B/P (MAP) Pulse Ox O2 Delivery O2 Flow Rate FiO2 03/19/21 07:00 97.7 88 18 149/80 (103) 96 Nasal Cannula 2.0 97.7 Intake and Output 03/19/21 07:00 Intake Total 1900 ml Output Total 1950 ml Balance -50 ml Intake Oral 0 ml IV Total 700 ml Other 1200 ml Output Urine Total 450 ml Gastric Drainage Total 1500 ml # Voids 2 Physical Exam Physical Exam She is alert,supine in bed with NG tube in place and she had DJD of left knee and right knee prosthesis in place without any loosening. Assessment Assessment Problems Medical Problems: (1) Acute cystitis without hematuria Status: Acute (2) Acute metabolic encephalopathy Status: Acute (3) Acute renal insufficiency Status: Acute (4) Dehydration Status: Acute (5) Encounter for medical screening examination Status: Acute Plan Plan of Care To continue present care efforts. Comment Review of Relevant I have reviewed the following items jazmine (where applicable) has been applied. Labs Laboratory Tests Test 03/17/21 17:30 03/18/21 04:10 White Blood Count 10.7 x10^3/uL (4.0-11.0) Red Blood Count 3.57 x10^6/uL (3.50-5.40) Hemoglobin 11.7 g/dL (12.0-15.5) Hematocrit 36.1 % (36.0-47.0) Mean Corpuscular Volume 101 fL (79-100) Mean Corpuscular Hemoglobin 33 pg (25-35) Mean Corpuscular Hemoglobin Concent 32 g/dL (31-37) Red Cell Distribution Width 13.6 % (11.5-14.5) Platelet Count 151 x10^3/uL (140-400) Neutrophils (%) (Auto) 88 % (31-73) Lymphocytes (%) (Auto) 5 % (24-48) Monocytes (%) (Auto) 5 % (0-9) Eosinophils (%) (Auto) 1 % (0-3) Basophils (%) (Auto) 0 % (0-3) Neutrophils # (Auto) 9.5 x10^3/uL (1.8-7.7) Lymphocytes # (Auto) 0.6 x10^3/uL (1.0-4.8) Monocytes # (Auto) 0.6 x10^3/uL (0.0-1.1) Eosinophils # (Auto) 0.1 x10^3/uL (0.0-0.7) Basophils # (Auto) 0.0 x10^3/uL (0.0-0.2) Magnesium Level 1.9 mg/dL (1.8-2.4) Microbiology 03/15/21 Urine Culture - Final, Complete 03/15/21 Antimicrobic Susceptibility - Final, Complete Medications Current Medications Sodium Chloride 500 ml @ 500 mls/hr 1X ONCE IV Last administered on 03/15/21at 09:23; Start 03/15/21 at 09:00; Stop 03/15/21 at 09:59; Status DC Acetaminophen (Tylenol) 1,000 mg 1X ONCE PO Last administered on 03/15/21at 09:23; Start 03/15/21 at 09:15; Stop 03/15/21 at 09:16; Status DC Sodium Chloride 500 ml @ 500 mls/hr 1X ONCE IV Last administered on 03/15/21at 10:42; Start 03/15/21 at 10:00; Stop 03/15/21 at 10:59; Status DC Ondansetron HCl (Zofran) 4 mg PRN Q8HRS PRN IVP NAUSEA/VOMITING; Start 03/15/21 at 10:30; Stop 03/15/21 at 13:09; Status DC Sodium Chloride 1,000 ml @ 75 mls/hr [id number] IV Last administered on 03/15/21at 12:39; Start 03/15/21 at 10:30; Stop 03/16/21 at 10:29; Status DC Acetaminophen (Tylenol) 650 mg PRN Q4HRS PRN PO PAIN; Start 03/15/21 at 10:30; Stop 03/15/21 at 13:10; Status DC Sennosides (Senna) 17.2 mg PRN BID PRN PO CONSTIPATION; Start 03/15/21 at 13:15 Docusate Sodium (Colace) 100 mg PRN DAILY PRN PO HARD STOOLS; Start 03/15/21 at 13:15 Ondansetron HCl (Zofran) 4 mg PRN Q6HRS PRN IVP NAUSEA/VOMITING Last administe red on 03/18/21at 18:05; Start 03/15/21 at 13:15 Dextrose (Dextrose 50%-Water Syringe) 12.5 gm PRN Q15MIN PRN IV SEE COMMENTS; Start 03/15/21 at 13:15 Sodium Chloride 1,000 ml @ 100 mls/hr Q10H IV Last administered on 03/18/21at 22:15; Start 03/15/21 at 13:15 Acetaminophen (Tylenol) 650 mg PRN Q4HRS PRN PO TEMP OVER 100.4F OR MILD PAIN Last administered on 03/17/21at 09:56; Start 03/15/21 at 13:15 Lorazepam (Ativan) 0.5 mg PRN Q6HRS PRN PO ANXIETY / AGITATION; Start 03/15/21 at 13:15 Lorazepam (Ativan Inj) 0.25 mg PRN Q4HRS PRN IV ANXIETY / AGITATION; Start 03/15/21 at 13:15 Enoxaparin Sodium (Lovenox 30mg Syringe) 30 mg DAILY SQ Last administered on 03/18/21at 09:22; Start 03/15/21 at 14:00 Pantoprazole Sodium (Protonix) 40 mg DAILYAC PO Last administered on 03/15/21at 17:30; Start 03/15/21 at 14:00; Stop 03/15/21 at 21:58; Status DC Ceftriaxone Sodium (Rocephin) 1 gm Q24H IVP Last administered on 03/17/21at 15:22; Start 03/15/21 at 14:00; Stop 03/18/21 at 13:59; Status DC Prochlorperazine Edisylate (Compazine) 10 mg PRN Q6HRS PRN IV NAUSEA/VOMITING 2ND CHOICE Last administered on 03/18/21at 14:17; Start 03/15/21 at 13:15 Zolpidem Tartrate (Ambien) 2.5 mg PRN QHS PRN PO INSOMNIA Last administered on 03/16/21at 21:43; Start 03/15/21 at 13:15 Carvedilol (Coreg) 12.5 mg BIDWMEALS PO ; Start 03/16/21 at 08:00; Stop 03/15/21 at 22:15; Status DC Pantoprazole Sodium (Protonix) 40 mg HS PO Last administered on 03/16/21at 21:43; Start 03/15/21 at 22:00 Carvedilol (Coreg) 12.5 mg BIDWMEALS PO Last administered on 03/17/21at 09:59; Start 03/15/21 at 22:30 Magnesium Sulfate 50 ml @ 25 mls/hr 1X ONCE IV Last administered on 03/16/21at 08:51; Start 03/16/21 at 08:15; Stop 03/16/21 at 10:14; Status DC Acetaminophen/ Hydrocodone Bitart (Lortab 5/325) 1 tab PRN Q6HRS PRN PO MODERATE TO SEVERE PAIN Last administered on 03/17/21at 06:23; Start 03/16/21 at 10:15; Stop 03/17/21 at 10:09; Status DC Lactobacillus Rhamnosus (Culturelle) 1 cap BID PO Last administered on 03/17/21at 09:00; Start 03/16/21 at 21:00 Morphine Sulfate (Morphine Sulfate) 2 mg PRN Q2HR PRN IV PAIN Last administered on 03/18/21at 09:21; Start 03/16/21 at 16:00; Stop 03/18/21 at 19:36; Status DC Acetaminophen/ Hydrocodone Bitart (Lortab 5/325) 2 tab PRN Q6HRS PRN PO MODERATE TO SEVERE PAIN; Start 03/17/21 at 10:15 Prochlorperazine Edisylate (Compazine) 10 mg PRN Q6HRS PRN IV NAUSEA/VOMITING; Start 03/18/21 at 14:00; Status UNV Fentanyl Citrate (Fentanyl 2ml Vial) 25 mcg PRN Q3HRS PRN IVP PAIN Last administered on 03/18/21at 19:55; Start 03/18/21 at 19:45 Iohexol (Omnipaque 300 Mg/ml) 400 ml 1X ONCE PO ; Start 03/19/21 at 07:45; Stop 03/19/21 at 07:46; Status DC Info (CONTRAST GIVEN -- Rx MONITORING) 1 each PRN DAILY PRN MC SEE COMMENTS; Start 03/19/21 at 07:45; Stop 03/21/21 at 07:44 Active Scripts Active Proair Hfa Inhaler (Albuterol Sulfate) 8.5 Gm Hfa.aer.ad 2 Puff IH PRN Q4-6HRS PRN 21 Days Tessalon Perle (Benzonatate) 100 Mg Capsule 1 Cap PO TID Percocet 5-325 Mg Tablet (Oxycodone/Acetaminophen) 1 Each Tablet 1 Tab PO PRN Q6HRS PRN Amoxicillin 500 Mg Capsule 1 Cap PO Q8HRS Protonix (Pantoprazole Sodium) 40 Mg Tablet 40 Mg PO DAILYAC Reported Probiotic (Lactobacillus Combination No.4) 1 Each Capsule 1 Each PO DAILY08 Coreg (Carvedilol) 12.5 Mg Tablet 1 Tab PO BID Avapro (Irbesartan) 150 Mg Tablet 150 Mg PO DAILY Vitals/I & O Vital Sign - Last 24 Hours 03/18/21 03/18/21 03/18/21 03/18/21 11:00 15:00 19:30 19:55 Temp 97.5 98.1 97.8 97.5 98.1 97.8 Pulse 96 85 79 Resp 18 18 B/P (MAP) 87/54 (65) 141/78 (99) 157/80 (105) Pulse Ox 91 97 96 O2 Delivery Room Air Nasal Cannula Room Air Room Air O2 Flow Rate 3.0 2.0 03/18/21 03/18/21 03/18/21 03/19/21 19:55 20:25 23:00 03:15 Temp 98.3 98.2 98.3 98.2 Pulse 86 88 Resp 20 20 B/P (MAP) 149/69 (95) 163/79 (107) Pulse Ox 97 97 O2 Delivery Nasal Cannula Nasal Cannula Room Air Room Air O2 Flow Rate 2.0 2.0 2.0 2.0 03/19/21 07:00 Temp 97.7 97.7 Pulse 88 Resp 18 B/P (MAP) 149/80 (103) Pulse Ox 96 O2 Delivery Nasal Cannula O2 Flow Rate 2.0 Intake and Output 03/18/21 03/18/21 03/19/21 15:00 23:00 07:00 Intake Total 0 ml 0 ml 1900 ml Output Total 850 ml 1100 ml Balance 0 ml -850 ml 800 ml Justifications for Admission Other Justification UTI and altered mental status OPHELIA SORENSON MD Mar 19, 2021 10:10
[2021-03-19] MEDS: ENOXAPARIN 30 MG/0.3 ML SYRINGE. SQ SCH (10:51)
[2021-03-19] MEDS: IV NORMAL SALINE 1000ML BAG 1,000 ML IV SCH ×2 (10:51→17:15)
[2021-03-19] MEDS: fentaNYL PF VIAL 100 MCG/2 ML VIAL IVP PRN ×2 (10:53→15:40)
--- NOTE | 2021-03-19 13:26 | PDOC ---
[facility] PROGRESS NOTE Date of Service DOS: DATE: 03/19/21 TIME: 13:25 Chief Complaint Chief Complaint Assessment/Plan L1 transverse process fracture, displaced Partial small bowel obstruction Opioid induced ileus with nausea vomiting AAA measuring 5.3 cm Acute cystitis urine culture with Proteus mirabilis Acute infectious versus metabolic encephalopathy KENYA due to vasomotor nephropathy History of multiple falls Mild hyponatremia 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 History of hypertension History of GERD Keep NG tube in to LI WS Appreciate vascular surgery recommendations to monitor AAA and 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 Pending small bowel follow-through per general surgery Pending neurosurgery evaluation L1 transverse process fracture Pending orthostatic vital signs Pending PT/OT evaluation and recommendations Delirium prevention protocol Continue empiric IV antibiotics Pending urine cultures sensitivities Continue IV fluids Trend creatinine Monitor urine output Strict I/O Fall precautions PT OT evaluation Orthostatic vital signs Lovenox for DVT prophylaxis Protonix GI prophylaxis Cardiac diet CODE STATUS full Discussed with RN and SW Disposition inpatient management as above DPOA: Sister, Margoth Mauro History of Present Illness History of Present Illness 89-year-old female with past medical history of hypertension and 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 Patient lives at home with sister and daughter. Sister is a nurse and daughter is the main caregiver. Apparently in the past few days patient has been having more urinary frequency and falls. She does not usually use any walking device. Son is at bedside is able to provide history along with the patient. They also noticed that the patient was having some bouts of confusion which is not normal for her. Patient has hard of hearing and is able to answer some questions appropriately. Patient denies any suprapubic discomfort or dysuria. She does admit to a fall from ground-level yesterday due to slipping and admits to striking her head but denies loss of consciousness, nausea or vomiting or amnesia to events. She is not on any blood thinners. Patient denies any chest pain, fevers, nausea vomiting, abdominal pain, hematuria or diarrhea. 03/16/21 No acute events overnight. Pt apparently had a fall from commode this morning and complained of right hip and elbow pain. Also complained of headache. CT he ad and XR of Right elbow and Hip was obtained. Negative for any acute fractures. Lortab 5/325 was started for pain, but this was not controlled well. Escalated with IV morphine for breakthrough pain and will watch overnight. No urinary symptoms or complaints. Despite incident this morning, patient is less confused and AAOx3. AF and VSS. 03/17/2021 No acute events overnight. Patient seen and examined bedside. Patient is at her baseline mental status with some confusion according to niece who is at bedside. Patient continues to complain of right hip pain where she fell. Pending PT evaluation before determining if I should scan her vertebrae for fractures from her fall while in the hospital. We will continue to keep her inpatient for IV n.p.o. pain control. Continue IV antibiotics for UTI. Waiting for sensitivities. Patient's chart, labs, images were reviewed and discussed with RN 03/18/2021 No acute events overnight. Patient seen and examined bedside. Episode of vomiting this morning with morphine dose. Improved with Zofran. Patient continues to have minimal output through her colostomy. She continues to have some back pain. Multiple findings and images yesterday which requires evaluation from vascular surgery, general surgery, neurosurgery. Pending their evaluation.. We will keep n.p.o. for now. Patient's chart, labs, images were reviewed and discussed with RN Vitals/I&O Vitals/I&O: Vital Signs Date Time Temp Pulse Resp B/P (MAP) Pulse Ox O2 Delivery O2 Flow Rate FiO2 03/19/21 12:31 Room Air 03/19/21 11:00 99.1 84 18 160/91 (114) 97 2.0 99.1 I & O 03/18/21 03/18/21 03/19/21 15:00 23:00 07:00 Intake Total 0 ml 0 ml 1900 ml Output Total 850 ml 1100 ml Balance 0 ml -850 ml 800 ml Physical Exam General: Alert, Oriented X3 Heart: Regular rate Lungs: Clear, Other Abdomen: Soft, Other (no stool in ostomy, ttp upper abdomen ) Extremities: No clubbing, No cyanosis Skin: No rashes, No breakdown Assessment and Plan Assessmemt and Plan Problems Medical Problems: (1) Acute cystitis without hematuria Status: Acute (2) Acute metabolic encephalopathy Status: Acute (3) Acute renal insufficiency Status: Acute (4) Dehydration Status: Acute (5) Encounter for medical screening examination Status: Acute Comment Review of Relevant I have reviewed the following items jazmine (where applicable) has been applied. Medications: Current Medications Medications (Trade) Dose Ordered Sig/Serina Route PRN Reason Start Time Stop Time Status Last Admin Dose Admin Fentanyl Citrate (Fentanyl 2ml Vial) 25 mcg PRN Q3HRS PRN IVP PAIN 03/18/21 19:45 03/19/21 10:53 Iohexol (Omnipaque 300 Mg/ml) 400 ml 1X ONCE PO 03/19/21 07:45 03/19/21 07:46 DC 03/19/21 08:40 Justifications for Admission Other Justification UTI and altered mental status ROSALINDA MONAHAN MD Mar 19, 2021 13:26
[2021-03-19] MEDS: ONDANSETRON PF 4 MG/2 ML VIAL. IVP PRN (15:30)
--- NOTE | 2021-03-19 15:32 | RAD ---
EXAM: Abdomen, single view. HISTORY: Small bowel obstruction or ileus. COMPARISON: 03/17/2021 FINDINGS: A frontal view of the abdomen is obtained. There has been minimal interval decrease in dist ended air-filled bowel throughout the abdomen. There is stool within the colon. There is a left ventr al abdominal wall ostomy. There is a nasogastric tube within the stomach. There are cholecystectomy c lips. There is bilateral basilar atelectasis or infiltrate. There is no abdominal aortic aneurysm, be tter characterized on the recent CT. IMPRESSION: Slight interval decrease in distended loops of bowel throughout the abdomen. This may be due to slight decreased obstruction. Electronically signed by: Silva Santiago MD (03/19/2021 3:29 PM) [id number]
[2021-03-19] MEDS: PANTOPRAZOLE 40 MG TABLET.DR. PO SCH (21:00)
[2021-03-20 02:42] VITALS: BP 130/76
[2021-03-20 07:30] VITALS: BP 156/80
[2021-03-20] MEDS: ENOXAPARIN 30 MG/0.3 ML SYRINGE. SQ SCH (08:31)
--- NOTE | 2021-03-20 09:37 | PDOC ---
SURGICAL PROGRESS NOTE DATE: 03/20/21 TIME: 09:33 Subjective Pt without c/o, pt self extracted NGT, some small stools in ostomy Vital Signs Vital Signs Date Time Temp Pulse Resp B/P (MAP) Pulse Ox O2 Delivery O2 Flow Rate FiO2 03/20/21 07:30 98.1 100 18 156/80 (105) 94 Nasal Cannula 2.0 98.1 I&O Intake and Output 03/20/21 07:00 Intake Total 2400 ml Output Total 2100 ml Balance 300 ml Intake Oral 0 ml IV Total 1200 ml Other 1200 ml Gastric Drainage Total 2100 ml # Bowel Movements 1 General: Alert, Cooperative, No acute distress Abdomen: Soft, No tenderness, Other (ND, NTTP, ostomy viable with small stool) I have reviewed the following SBFT report pending, but appears improved with contrast in colon Problem List Problems Medical Problems: (1) Acute cystitis without hematuria Status: Acute (2) Acute metabolic encephalopathy Status: Acute (3) Acute renal insufficiency Status: Acute (4) Dehydration Status: Acute (5) Encounter for medical screening examination Status: Acute Assessment/Plan SBO, appears improved will not replace NGT will try clears Justicifation of Admission Dx: Justifications for Admission: Justification of Admission Dx: Yes RONNI MATOS MD Mar 20, 2021 09:37
--- NOTE | 2021-03-20 10:53 | PDOC ---
PROGRESS NOTES Date of Service DATE: 03/20/21 TIME: 10:50 Subjective Subjective She still admits right sided low back pain. Objective Objective Vital Signs Date Time Temp Pulse Resp B/P (MAP) Pulse Ox O2 Delivery O2 Flow Rate FiO2 03/20/21 08:15 Nasal Cannula 2.0 03/20/21 07:30 98.1 100 18 156/80 (105) 94 98.1 Intake and Output 03/20/21 07:00 Intake Total 2400 ml Output Total 2100 ml Balance 300 ml Intake Oral 0 ml IV Total 1200 ml Other 1200 ml Gastric Drainage Total 2100 ml # Bowel Movements 1 Physical Exam Physical Exam She is alert,supine in bed and continues with tenderness to palpation over right lumbar paraspinal muscles with painfully limited lumbar spine ROM. She got up with physical therapy yesterday. Assessment Assessment Problems Medical Problems: (1) Acute cystitis without hematuria Status: Acute (2) Acute metabolic encephalopathy Status: Acute (3) Acute renal insufficiency Status: Acute (4) Dehydration Status: Acute (5) Encounter for medical screening examination Status: Acute Plan Plan of Care To get her up a tolerated. Comment Review of Relevant I have reviewed the following items jazmine (where applicable) has been applied. Labs Microbiology 03/15/21 Urine Culture - Final, Complete 03/15/21 Antimicrobic Susceptibility - Final, Complete Medications Current Medications Sodium Chloride 500 ml @ 500 mls/hr 1X ONCE IV Last administered on 03/15/21a t 09:23; Start 03/15/21 at 09:00; Stop 03/15/21 at 09:59; Status DC Acetaminophen (Tylenol) 1,000 mg 1X ONCE PO Last administered on 03/15/21at 09:23; Start 03/15/21 at 09:15; Stop 03/15/21 at 09:16; Status DC Sodium Chloride 500 ml @ 500 mls/hr 1X ONCE IV Last administered on 03/15/21at 10:42; Start 03/15/21 at 10:00; Stop 03/15/21 at 10:59; Status DC Ondansetron HCl (Zofran) 4 mg PRN Q8HRS PRN IVP NAUSEA/VOMITING; Start 03/15/21 at 10:30; Stop 03/15/21 at 13:09; Status DC Sodium Chloride 1,000 ml @ 75 mls/hr [id number] IV Last administered on 03/15/21at 12:39; Start 03/15/21 at 10:30; Stop 03/16/21 at 10:29; Status DC Acetaminophen (Tylenol) 650 mg PRN Q4HRS PRN PO PAIN; Start 03/15/21 at 10:30; Stop 03/15/21 at 13:10; Status DC Sennosides (Senna) 17.2 mg PRN BID PRN PO CONSTIPATION; Start 03/15/21 at 13:15 Docusate Sodium (Colace) 100 mg PRN DAILY PRN PO HARD STOOLS; Start 03/15/21 at 13:15 Ondansetron HCl (Zofran) 4 mg PRN Q6HRS PRN IVP NAUSEA/VOMITING Last administered on 03/19/21at 15:30; Start 03/15/21 at 13:15 Dextrose (Dextrose 50%-Water Syringe) 12.5 gm PRN Q15MIN PRN IV SEE COMMENTS; Start 03/15/21 at 13:15 Sodium Chloride 1,000 ml @ 100 mls/hr Q10H IV Last administered on 03/19/21at 10:51; Start 03/15/21 at 13:15 Acetaminophen (Tylenol) 650 mg PRN Q4HRS PRN PO TEMP OVER 100.4F OR MILD PAIN Last administered on 03/17/21at 09:56; Start 03/15/21 at 13:15 Lorazepam (Ativan) 0.5 mg PRN Q6HRS PRN PO ANXIETY / AGITATION; Start 03/15/21 at 13:15 Lorazepam (Ativan Inj) 0.25 mg PRN Q4HRS PRN IV ANXIETY / AGITATION; Start 03/15/21 at 13:15 Enoxaparin Sodium (Lovenox 30mg Syringe) 30 mg DAILY SQ Last administered on 03/20/21at 08:31; Start 03/15/21 at 14:00 Pantoprazole Sodium (Protonix) 40 mg DAILYAC PO Last administered on 03/15/21at 17:30; Start 03/15/21 at 14:00; Stop 03/15/21 at 21:58; Status DC Ceftriaxone Sodium (Rocephin) 1 gm Q24H IVP Last administered on 03/17/21at 15:22; Start 03/15/21 at 14:00; Stop 03/18/21 at 13:59; Status DC Prochlorperazine Edisylate (Compazine) 10 mg PRN Q6HRS PRN IV NAUSEA/VOMITING 2ND CHOICE Last administered on 03/18/21at 14:17; Start 03/15/21 at 13:15 Zolpidem Tartrate (Ambien) 2.5 mg PRN QHS PRN PO INSOMNIA Last administered on 03/16/21at 21:43; Start 03/15/21 at 13:15 Carvedilol (Coreg) 12.5 mg BIDWMEALS PO ; Start 03/16/21 at 08:00; Stop 03/15/21 at 22:15; Status DC Pantoprazole Sodium (Protonix) 40 mg HS PO Last administered on 03/16/21at 21:43; Start 03/15/21 at 22:00 Carvedilol (Coreg) 12.5 mg BIDWMEALS PO Last administered on 03/17/21at 09:59; Start 03/15/21 at 22:30 Magnesium Sulfate 50 ml @ 25 mls/hr 1X ONCE IV Last administered on 03/16/21at 08:51; Start 03/16/21 at 08:15; Stop 03/16/21 at 10:14; Status DC Acetaminophen/ Hydrocodone Bitart (Lortab 5/325) 1 tab PRN Q6HRS PRN PO MODERATE TO SEVERE PAIN Last administered on 03/17/21at 06:23; Start 03/16/21 at 10:15; Stop 03/17/21 at 10:09; Status DC Lactobacillus Rhamnosus (Culturelle) 1 cap BID PO Last administered on 03/17/21at 09:00; Start 03/16/21 at 21:00 Morphine Sulfate (Morphine Sulfate) 2 mg PRN Q2HR PRN IV PAIN Last administered on 03/18/21at 09:21; Start 03/16/21 at 16:00; Stop 03/18/21 at 19:36; Status DC Acetaminophen/ Hydrocodone Bitart (Lortab 5/325) 2 tab PRN Q6HRS PRN PO MODERATE TO SEVERE PAIN; Start 03/17/21 at 10:15 Prochlorperazine Edisylate (Compazine) 10 mg PRN Q6HRS PRN IV NAUSEA/VOMITING; Start 03/18/21 at 14:00; Status UNV Fentanyl Citrate (Fentanyl 2ml Vial) 25 mcg PRN Q3HRS PRN IVP PAIN Last administered on 03/19/21at 15:40; Start 03/18/21 at 19:45 Iohexol (Omnipaque 300 Mg/ml) 400 ml 1X ONCE PO Last administered on 03/19/21at 08:40; Start 03/19/21 at 07:45; Stop 03/19/21 at 07:46; Status DC Info (CONTRAST GIVEN -- Rx MONITORING) 1 each PRN DAILY PRN MC SEE COMMENTS; Start 03/19/21 at 07:45; Stop 03/21/21 at 07:44 Active Scripts Active Proair Hfa Inhaler (Albuterol Sulfate) 8.5 Gm Hfa.aer.ad 2 Puff IH PRN Q4-6HRS PRN 21 Days Tessalon Perle (Benzonatate) 100 Mg Capsule 1 Cap PO TID Percocet 5-325 Mg Tablet (Oxycodone/Acetaminophen) 1 Each Tablet 1 Tab PO PRN Q6HRS PRN Amoxicillin 500 Mg Capsule 1 Cap PO Q8HRS Protonix (Pantoprazole Sodium) 40 Mg Tablet 40 Mg PO DAILYAC Reported Probiotic (Lactobacillus Combination No.4) 1 Each Capsule 1 Each PO DAILY08 Coreg (Carvedilol) 12.5 Mg Tablet 1 Tab PO BID Avapro (Irbesartan) 150 Mg Tablet 150 Mg PO DAILY Vitals/I & O Vital Sign - Last 24 Hours 03/19/21 03/19/21 03/19/21 03/19/21 10:53 11:00 12:31 15:00 Temp 99.1 98.1 99.1 98.1 Pulse 84 61 Resp 18 16 B/P (MAP) 160/91 (114) 184/83 (116) Pulse Ox 97 96 O2 Delivery Nasal Cannula Nasal Cannula Room Air Nasal Cannula O2 Flow Rate 2.0 2.0 2.0 03/19/21 03/19/21 03/19/21 03/19/21 15:40 19:00 19:50 23:00 Temp 98.7 97.5 98.7 97.5 Pulse 81 96 Resp 18 16 B/P (MAP) 162/77 (105) 125/71 (89) Pulse Ox 98 96 O2 Delivery Room Air Nasal Cannula Room Air Nasal Cannula O2 Flow Rate 2.0 2.0 03/19/21 03/20/21 03/20/21 03/20/21 23:01 02:42 07:30 08:15 Temp 97.5 97.7 98.1 97.5 97.7 98.1 Pulse 96 87 100 Resp 16 16 18 B/P (MAP) 125/71 (89) 130/76 (94) 156/80 (105) Pulse Ox 96 96 94 O2 Delivery Nasal Cannula Nasal Cannula Nasal Cannula Nasal Cannula O2 Flow Rate 2.0 2.0 2.0 2.0 Intake and Output 03/19/21 03/19/21 03/20/21 15:00 23:00 07:00 Intake Total 2400 ml Output Total 1700 ml 400 ml Balance -1700 ml 2000 ml Justifications for Admission Other Justification UTI and altered mental status OPHELIA SORENSON MD Mar 20, 2021 10:53
[2021-03-20 11:00] VITALS: BP 169/93
[2021-03-20] MEDS: IV NORMAL SALINE 1000ML BAG 1,000 ML IV SCH ×3 (12:02→23:15)
[2021-03-20] MEDS: LACTOBACILLUS RHAMNOSUS GG 1 CAPSULE. PO SCH ×2 (12:04→21:05)
[2021-03-20] MEDS: CARVEDILOL 12.5 MG TABLET. PO SCH ×2 (12:08→17:18)
[2021-03-20 15:18] VITALS: BP 171/90
--- NOTE | 2021-03-20 16:53 | RAD ---
Small bowel follow-through exam 03/19/2021. Reason for exam: Partial small bowel obstruction. Initial radiograph shows contrast in the stomach an d proximal small bowel, apparently introduced via NG tube. Contrast then extends through the dilated proximal small bowel and is seen on delayed films at about 7 hours 20 minutes within decompressed dis richard small bowel and into the right colon. Incidental note is made of dilated vascular structures as d escribed on prior CT. IMPRESSION: Findings are consistent with partial small bowel obstruction. Electronically signed by: Dm Ortez Jr., MD (03/20/2021 4:50 PM) [id number]
[2021-03-20 19:15] VITALS: BP 178/86
[2021-03-20] MEDS: PANTOPRAZOLE 40 MG TABLET.DR. PO SCH (21:05)
[2021-03-20 23:41] VITALS: BP 186/91
[2021-03-21 03:09] VITALS: BP 172/79
[2021-03-21 07:00] VITALS: BP 146/89
--- NOTE | 2021-03-21 08:23 | PDOC ---
SAM SOTELO ASSESSMENT TECHNICIAN 03/21/21 0823: SURGICAL PROGRESS NOTE DATE: 03/21/21 TIME: 08:22 Subjective pain with movement no n/v tolerating clears Vital Signs Vital Signs Date Time Temp Pulse Resp B/P (MAP) Pulse Ox O2 Delivery O2 Flow Rate FiO2 03/21/21 03:09 98.4 80 18 172/79 (110) 88 Nasal Cannula 2.0 98.4 I&O Intake and Output 03/21/21 07:00 Intake Total 480 ml Output Total 250 ml Balance 230 ml Intake Oral 480 ml Output Urine Total 250 ml # Voids 1 General: Alert, Oriented X3, Cooperative Abdomen: Soft, Other (some ostomy function ) Problem List Problems Medical Problems: (1) Acute cystitis without hematuria Status: Acute (2) Acute metabolic encephalopathy Status: Acute (3) Acute renal insufficiency Status: Acute (4) Dehydration Status: Acute (5) Encounter for medical screening examination Status: Acute Assessment/Plan await xr if improved, advance diet Justicifation of Admission Dx: Justifications for Admission: Justification of Admission Dx: Yes RONNI MATOS MD 03/21/21 1329: SURGICAL PROGRESS NOTE Assessment/Plan Pt seen and examined. Agree with Ricci's note Pt feels better, olivia clears abd soft, ND, NTTP, ostomy with extensive stools will encourage OOB if KUB better, plan ADAT in AM SAM SOTELO APRN Mar 21, 2021 08:23 RONNI MATOS MD Mar 21, 2021 13:29
[2021-03-21] MEDS: LACTOBACILLUS RHAMNOSUS GG 1 CAPSULE. PO SCH ×2 (08:56→21:28)
[2021-03-21] MEDS: CARVEDILOL 12.5 MG TABLET. PO SCH ×2 (08:56→17:53)
[2021-03-21] MEDS: ENOXAPARIN 30 MG/0.3 ML SYRINGE. SQ SCH (08:56)
[2021-03-21] MEDS: IV NORMAL SALINE 1000ML BAG 1,000 ML IV SCH ×2 (08:58→22:36)
--- NOTE | 2021-03-21 09:59 | PDOC ---
PROGRESS NOTES Date of Service DATE: 03/21/21 TIME: 09:57 Subjective Subjective No new complaints. Objective Objective Vital Signs Date Time Temp Pulse Resp B/P (MAP) Pulse Ox O2 Delivery O2 Flow Rate FiO2 03/21/21 08:56 73 146/89 03/21/21 07:00 18 97 Nasal Cannula 2.0 03/21/21 03:09 98.4 98.4 Intake and Output 03/21/21 07:00 Intake Total 480 ml Output Total 250 ml Balance 230 ml Intake Oral 480 ml Output Urine Total 250 ml # Voids 1 Physical Exam Physical Exam She is alert,supine in bed and seems to be comfortable but continues with painfully limited lumbar spine ROM and significant back pain with mobility,like rolling in bed and trying to come to a sitting and standing position. Assessment Assessment Problems Medical Problems: (1) Acute cystitis without hematuria Status: Acute (2) Acute metabolic encephalopathy Status: Acute (3) Acute renal insufficiency Status: Acute (4) Dehydration Status: Acute (5) Encounter for medical screening examination Status: Acute Plan Plan of Care To get her up as tolerated. Comment Review of Relevant I have reviewed the following items jazmine (where applicable) has been applied. Labs Microbiology 03/15/21 Urine Culture - Final, Complete 03/15/21 Antimicrobic Susceptibility - Final, Complete Medications Current Medications Sodium Chloride 500 ml @ 500 mls/hr 1X ONCE IV Last administered on 03/15/21at 09:23; Start 03/15/21 at 09:00; Stop 03/15/21 at 09:59; Status DC Acetaminophen (Tylenol) 1,000 mg 1X ONCE PO Last administered on 03/15/21at 09:23; Start 03/15/21 at 09:15; Stop 03/15/21 at 09:16; Status DC Sodium Chloride 500 ml @ 500 mls/hr 1X ONCE IV Last administered on 03/15/21at 10:42; Start 03/15/21 at 10:00; Stop 03/15/21 at 10:59; Status DC Ondansetron HCl (Zofran) 4 mg PRN Q8HRS PRN IVP NAUSEA/VOMITING; Start 03/15/21 at 10:30; Stop 03/15/21 at 13:09; Status DC Sodium Chloride 1,000 ml @ 75 mls/hr [id number] IV Last administered on 03/15/21at 12:39; Start 03/15/21 at 10:30; Stop 03/16/21 at 10:29; Status DC Acetaminophen (Tylenol) 650 mg PRN Q4HRS PRN PO PAIN; Start 03/15/21 at 10:30; Stop 03/15/21 at 13:10; Status DC Sennosides (Senna) 17.2 mg PRN BID PRN PO CONSTIPATION; Start 03/15/21 at 13:15 Docusate Sodium (Colace) 100 mg PRN DAILY PRN PO HARD STOOLS; Start 03/15/21 at 13:15 Ondansetron HCl (Zofran) 4 mg PRN Q6HRS PRN IVP NAUSEA/VOMITING Last administered on 03/19/21at 15:30; Start 03/15/21 at 13:15 Dextrose (Dextrose 50%-Water Syringe) 12.5 gm PRN Q15MIN PRN IV SEE COMMENTS; Start 03/15/21 at 13:15 Sodium Chloride 1,000 ml @ 100 mls/hr Q10H IV Last administered on 03/21/21at 08:58; Start 03/15/21 at 13:15 Acetaminophen (Tylenol) 650 mg PRN Q4HRS PRN PO TEMP OVER 100.4F OR MILD PAIN Last administered on 03/17/21at 09:56; Start 03/15/21 at 13:15 Lorazepam (Ativan) 0.5 mg PRN Q6HRS PRN PO ANXIETY / AGITATION; Start 03/15/21 at 13:15 Lorazepam (Ativan Inj) 0.25 mg PRN Q4HRS PRN IV ANXIETY / AGITATION; Start 03/15/21 at 13:15 Enoxaparin Sodium (Lovenox 30mg Syringe) 30 mg DAILY SQ Last administered on at 08:56; Start 03/15/21 at 14:00 Pantoprazole Sodium (Protonix) 40 mg DAILYAC PO Last administered on 03/15/21at 17:30; Start 03/15/21 at 14:00; Stop 03/15/21 at 21:58; Status DC Ceftriaxone Sodium (Rocephin) 1 gm Q24H IVP Last administered on 03/17/21at 15:22; Start 03/15/21 at 14:00; Stop 03/18/21 at 13:59; Status DC Prochlorperazine Edisylate (Compazine) 10 mg PRN Q6HRS PRN IV NAUSEA/VOMITING 2ND CHOICE Last administered on 03/18/21at 14:17; Start 03/15/21 at 13:15 Zolpidem Tartrate (Ambien) 2.5 mg PRN QHS PRN PO INSOMNIA Last administered on 03/16/21at 21:43; Start 03/15/21 at 13:15 Carvedilol (Coreg) 12.5 mg BIDWMEALS PO ; Start 03/16/21 at 08:00; Stop 03/15/21 at 22:15; Status DC Pantoprazole Sodium (Protonix) 40 mg HS PO Last administered on 03/20/21at 21:05; Start 03/15/21 at 22:00 Carvedilol (Coreg) 12.5 mg BIDWMEALS PO Last administered on 03/21/21at 08:56; Start 03/15/21 at 22:30 Magnesium Sulfate 50 ml @ 25 mls/hr 1X ONCE IV Last administered on 03/16/21at 08:51; Start 03/16/21 at 08:15; Stop 03/16/21 at 10:14; Status DC Acetaminophen/ Hydrocodone Bitart (Lortab 5/325) 1 tab PRN Q6HRS PRN PO MODERATE TO SEVERE PAIN Last administered on 03/17/21at 06:23; Start 03/16/21 at 10:15; Stop 03/17/21 at 10:09; Status DC Lactobacillus Rhamnosus (Culturelle) 1 cap BID PO Last administered on 03/21/21at 08:56; Start 03/16/21 at 21:00 Morphine Sulfate (Morphine Sulfate) 2 mg PRN Q2HR PRN IV PAIN Last administered on 03/18/21at 09:21; Start 03/16/21 at 16:00; Stop 03/18/21 at 19:36; Status DC Acetaminophen/ Hydrocodone Bitart (Lortab 5/325) 2 tab PRN Q6HRS PRN PO MODERATE TO SEVERE PAIN; Start 03/17/21 at 10:15 Prochlorperazine Edisylate (Compazine) 10 mg PRN Q6HRS PRN IV NAUSEA/VOMITING; Start 03/18/21 at 14:00; Status UNV Fentanyl Citrate (Fentanyl 2ml Vial) 25 mcg PRN Q3HRS PRN IVP PAIN Last administered on 03/19/21at 15:40; Start 03/18/21 at 19:45 Iohexol (Omnipaque 300 Mg/ml) 400 ml 1X ONCE PO Last administered on 03/19/21at 08:40; Start 03/19/21 at 07:45; Stop 03/19/21 at 07:46; Status DC Info (CONTRAST GIVEN -- Rx MONITORING) 1 each PRN DAILY PRN MC SEE COMMENTS; Start 03/19/21 at 07:45; Stop 03/21/21 at 07:44; Status DC Active Scripts Active Proair Hfa Inhaler (Albuterol Sulfate) 8.5 Gm Hfa.aer.ad 2 Puff IH PRN Q4-6HRS PRN 21 Days Tessalon Perle (Benzonatate) 100 Mg Capsule 1 Cap PO TID Percocet 5-325 Mg Tablet (Oxycodone/Acetaminophen) 1 Each Tablet 1 Tab PO PRN Q6HRS PRN Amoxicillin 500 Mg Capsule 1 Cap PO Q8HRS Protonix (Pantoprazole Sodium) 40 Mg Tablet 40 Mg PO DAILYAC Reported Probiotic (Lactobacillus Combination No.4) 1 Each Capsule 1 Each PO DAILY08 Coreg (Carvedilol) 12.5 Mg Tablet 1 Tab PO BID Avapro (Irbesartan) 150 Mg Tablet 150 Mg PO DAILY Vitals/I & O Vital Sign - Last 24 Hours 03/20/21 03/20/21 03/20/21 03/20/21 11:00 12:08 15:18 17:18 Temp 97.7 98.9 97.7 98.9 Pulse 83 85 87 80 Resp 18 18 B/P (MAP) 169/93 (118) 171/90 171/90 (117) 169/89 Pulse Ox 94 96 O2 Delivery Nasal Cannula Nasal Cannula O2 Flow Rate 2.0 2.0 03/20/21 03/20/21 03/20/21 03/21/21 19:15 20:00 23:41 03:09 Temp 98.6 98.1 98.4 98.6 98.1 98.4 Pulse 87 81 80 Resp 20 20 18 B/P (MAP) 178/86 (116) 186/91 (122) 172/79 (110) Pulse Ox 97 94 88 O2 Delivery Nasal Cannula Nasal Cannula Nasal Cannula Nasal Cannula O2 Flow Rate 2.0 2.0 2.0 2.0 03/21/21 03/21/21 07:00 08:56 Pulse 73 73 Resp 18 B/P (MAP) 146/89 (108) 146/89 Pulse Ox 97 O2 Delivery Nasal Cannula O2 Flow Rate 2.0 Intake and Output 03/20/21 03/20/21 03/21/21 15:00 23:00 07:00 Intake Total 480 ml Output Total 250 ml Balance 480 ml -250 ml Justifications for Admission Other Justification UTI and altered mental status OPHELIA SORENSON MD Mar 21, 2021 09:59
--- NOTE | 2021-03-21 10:40 | PDOC ---
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 History of hypertension History of GERD Keep NG tube in to LI WS Appreciate vascular surgery recommendations to monitor AAA and 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 Pending small bowel follow-through per general surgery Pending neurosurgery evaluation L1 transverse process fracture Pending orthostatic vital signs Pending PT/OT evaluation and recommendations Delirium prevention protocol Continue empiric IV antibiotics Pending urine cultures sensitivities Continue IV fluids Trend creatinine Monitor urine output Strict I/O Fall precautions PT OT evaluation Orthostatic vital signs Lovenox for DVT prophylaxis Protonix GI prophylaxis Cardiac diet CODE STATUS full Discussed with RN and SW Disposition inpatient management as above DPOA: Sister, Margoth Mauro History of Present Illness History of Present Illness 89-year-old female with past medical history of hypertension and 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 Patient lives at home with sister and daughter. Sister is a nurse and daughter is the main caregiver. Apparently in the past few days patient has been having more urinary frequency and falls. She does not usually use any walking device. Son is at bedside is able to provide history along with the patient. They also noticed that the patient was having some bouts of confusion which is not normal for her. Patient has hard of hearing and is able to answer some questions appropriately. Patient denies any suprapubic discomfort or dysuria. She does admit to a fall from ground-level yesterday due to slipping and admits to striking her head but denies loss of consciousness, nausea or vomiting or amnesia to events. She is not on any blood thinners. Patient denies any chest pain, fevers, nausea vomiting, abdominal pain, hematuria or diarrhea. 03/16/21 No acute events overnight. Pt apparently had a fall from commode this morning and complained of right hip and elbow pain. Also complained of headache. CT he ad and XR of Right elbow and Hip was obtained. Negative for any acute fractures. Lortab 5/325 was started for pain, but this was not controlled well. Escalated with IV morphine for breakthrough pain and will watch overnight. No urinary symptoms or complaints. Despite incident this morning, patient is less confused and AAOx3. AF and VSS. 03/17/2021 No acute events overnight. Patient seen and examined bedside. Patient is at her baseline mental status with some confusion according to niece who is at bedside. Patient continues to complain of right hip pain where she fell. Pending PT evaluation before determining if I should scan her vertebrae for fractures from her fall while in the hospital. We will continue to keep her inpatient for IV n.p.o. pain control. Continue IV antibiotics for UTI. Waiting for sensitivities. Patient's chart, labs, images were reviewed and discussed with RN 03/18/2021 No acute events overnight. Patient seen and examined bedside. Episode of vomiting this morning with morphine dose. Improved with Zofran. Patient continues to have minimal output through her colostomy. She continues to have some back pain. Multiple findings and images yesterday which requires evaluation from vascular surgery, general surgery, neurosurgery. Pending their evaluation.. We will keep n.p.o. for now. Patient's chart, labs, images were reviewed and discussed with RN 03/20 No major overnight events. Discussed with patient and son at bedside at great length. Trying clears today. Plan of care discussed bedside RN. Vitals/I&O Vitals/I&O: Vital Signs Date Time Temp Pulse Resp B/P (MAP) Pulse Ox O2 Delivery O2 Flow Rate FiO2 03/21/21 08:56 73 146/89 03/21/21 07:25 Nasal Cannula 2.0 03/21/21 07:00 18 97 03/21/21 03:09 98.4 98.4 I & O 03/20/21 03/20/21 03/21/21 15:00 23:00 07:00 Intake Total 480 ml Output Total 250 ml Balance 480 ml -250 ml Physical Exam General: Alert, Oriented X3, Cooperative Heart: Regular rate Lungs: Clear, Other Abdomen: Soft, Other (some ostomy function ) Extremities: No clubbing, No cyanosis Skin: No rashes, No breakdown Assessment and Plan Assessmemt and Plan Problems Medical Problems: (1) Acute cystitis without hematuria Status: Acute (2) Acute metabolic encephalopathy Status: Acute (3) Acute renal insufficiency Status: Acute (4) Dehydration Status: Acute (5) Encounter for medical screening examination Status: Acute Comment Review of Relevant I have reviewed the following items jazmine (where applicable) has been applied. Justifications for Admission Other Justification UTI and altered mental status JAYSON THOMPSON MD Mar 21, 2021 10:40
[2021-03-21 11:00] VITALS: BP 161/87
[2021-03-21 15:00] VITALS: BP 172/90
--- NOTE | 2021-03-21 15:43 | RAD ---
XR ABDOMEN 2V History: SBO Comparison: 03/19/2021 Technique: Upright and supine radiographs of the abdomen Findings: Bowel gas pattern: Mild gaseous distention of the stomach. There is a persistent gas-filled dilated s mall bowel loop in the left lower quadrant. Contrast extends through the colon towards the left upper quadrant colostomy. Free air: None. Abnormal calcifications: Calcifications of the aneurysmal abdominal aorta. Bones: Degenerative changes of the lumbar spine with levoconvex curvature. Other: Basilar atelectasis. Impression: 1. Persistent gaseous distention of the stomach and a small bowel loop in the left lower quadrant co ncerning for ongoing partial small bowel obstruction, however passage of contrast through the colon t o the left upper quadrant colostomy indicates a degree of patency. Electronically signed by: Aaron Delong MD (03/21/2021 3:41 PM) [facility]
--- NOTE | 2021-03-21 18:55 | PDOC ---
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 History of hypertension History of GERD Keep NG tube in to LI WS Appreciate vascular surgery recommendations to monitor AAA and 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 Pending small bowel follow-through per general surgery Pending neurosurgery evaluation L1 transverse process fracture Pending orthostatic vital signs Pending PT/OT evaluation and recommendations Delirium prevention protocol Continue empiric IV antibiotics Pending urine cultures sensitivities Continue IV fluids Trend creatinine Monitor urine output Strict I/O Fall precautions PT OT evaluation Orthostatic vital signs Lovenox for DVT prophylaxis Protonix GI prophylaxis Cardiac diet CODE STATUS full Discussed with RN and SW Disposition inpatient management as above DPOA: Sister, Margoth Mauro History of Present Illness History of Present Illness 89-year-old female with past medical history of hypertension and 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 Patient lives at home with sister and daughter. Sister is a nurse and daughter is the main caregiver. Apparently in the past few days patient has been having more urinary frequency and falls. She does not usually use any walking device. Son is at bedside is able to provide history along with the patient. They also noticed that the patient was having some bouts of confusion which is not normal for her. Patient has hard of hearing and is able to answer some questions appropriately. Patient denies any suprapubic discomfort or dysuria. She does admit to a fall from ground-level yesterday due to slipping and admits to striking her head but denies loss of consciousness, nausea or vomiting or amnesia to events. She is not on any blood thinners. Patient denies any chest pain, fevers, nausea vomiting, abdominal pain, hematuria or diarrhea. 03/16/21 No acute events overnight. Pt apparently had a fall from commode this morning and complained of right hip and elbow pain. Also complained of headache. CT he ad and XR of Right elbow and Hip was obtained. Negative for any acute fractures. Lortab 5/325 was started for pain, but this was not controlled well. Escalated with IV morphine for breakthrough pain and will watch overnight. No urinary symptoms or complaints. Despite incident this morning, patient is less confused and AAOx3. AF and VSS. 03/17/2021 No acute events overnight. Patient seen and examined bedside. Patient is at her baseline mental status with some confusion according to niece who is at bedside. Patient continues to complain of right hip pain where she fell. Pending PT evaluation before determining if I should scan her vertebrae for fractures from her fall while in the hospital. We will continue to keep her inpatient for IV n.p.o. pain control. Continue IV antibiotics for UTI. Waiting for sensitivities. Patient's chart, labs, images were reviewed and discussed with RN 03/18/2021 No acute events overnight. Patient seen and examined bedside. Episode of vomiting this morning with morphine dose. Improved with Zofran. Patient continues to have minimal output through her colostomy. She continues to have some back pain. Multiple findings and images yesterday which requires evaluation from vascular surgery, general surgery, neurosurgery. Pending their evaluation.. We will keep n.p.o. for now. Patient's chart, labs, images were reviewed and discussed with RN 03/20 No major overnight events. Discussed with patient and son at bedside at great length. Trying clears today. Plan of care discussed bedside RN. 03/21 evaluated and examined at bedside. ADAT. discussed wtih bedside RN. Vitals/I&O Vitals/I&O: Vital Signs Date Time Temp Pulse Resp B/P (MAP) Pulse Ox O2 Delivery O2 Flow Rate FiO2 03/21/21 17:53 72 172/90 03/21/21 15:00 98.2 18 97 Nasal Cannula 2.0 98.2 I & O 03/20/21 03/20/21 03/21/21 15:00 23:00 07:00 Intake Total 480 ml Output Total 250 ml Balance 480 ml -250 ml Physical Exam General: Alert, Oriented X3, Cooperative Heart: Regular rate Lungs: Clear, Other Abdomen: Soft, Other (some ostomy function ) Extremities: No clubbing, No cyanosis Skin: No rashes, No breakdown Assessment and Plan Assessmemt and Plan Problems Medical Problems: (1) Acute cystitis without hematuria Status: Acute (2) Acute metabolic encephalopathy Status: Acute (3) Acute renal insufficiency Status: Acute (4) Dehydration Status: Acute (5) Encounter for medical screening examination Status: Acute Comment Review of Relevant I have reviewed the following items jazmine (where applicable) has been applied. Justifications for Admission Other Justification UTI and altered mental status JAYSON THOMPSON MD Mar 21, 2021 18:55
[2021-03-21 19:15] VITALS: BP 158/79
[2021-03-21] MEDS: PANTOPRAZOLE 40 MG TABLET.DR. PO SCH (21:28)
[2021-03-21 23:30] VITALS: BP 183/97
[2021-03-22 03:25] VITALS: BP 151/84
[2021-03-22 07:00] VITALS: BP 174/75
--- NOTE | 2021-03-22 08:40 | PDOC ---
SAM SOTELO POULTRY HATCHERY MAN 03/22/21 0839: SURGICAL PROGRESS NOTE DATE: 03/22/21 TIME: 08:39 Subjective some pain with palpation taking clears no nausea Vital Signs Vital Signs Date Time Temp Pulse Resp B/P (MAP) Pulse Ox O2 Delivery O2 Flow Rate FiO2 03/22/21 07:00 97.3 72 22 174/75 (108) 93 Nasal Cannula 2.0 97.3 I&O Intake and Output 03/22/21 07:00 Intake Total 600 ml Output Total 1400 ml Balance -800 ml Intake Oral 600 ml Output Urine Total 1400 ml General: Alert, Oriented X3, Cooperative Abdomen: Soft, Other (ttp upper abdomen, ostomy with stool) Problem List Problems Medical Problems: (1) Acute cystitis without hematuria Status: Acute (2) Acute metabolic encephalopathy Status: Acute (3) Acute renal insufficiency Status: Acute (4) Dehydration Status: Acute (5) Encounter for medical screening examination Status: Acute Assessment/Plan will repeat xr, still concern for partial, however ostomy functioning Justicifation of Admission Dx: Justifications for Admission: Justification of Admission Dx: Yes RONNI MATOS MD 03/22/21 1409: SURGICAL PROGRESS NOTE Assessment/Plan Pt seen and examined. Agree with Ms. Sotelo's note Pt reports feeling well abd soft, colostomy with stool, but no flatus cont clears SAM SOTELO APRN Mar 22, 2021 08:39 RONNI MATOS MD Mar 22, 2021 14:09
[2021-03-22] MEDS: CARVEDILOL 12.5 MG TABLET. PO SCH ×2 (09:35→17:44)
[2021-03-22] MEDS: ENOXAPARIN 30 MG/0.3 ML SYRINGE. SQ SCH (09:35)
[2021-03-22] MEDS: LACTOBACILLUS RHAMNOSUS GG 1 CAPSULE. PO SCH ×2 (09:35→22:37)
[2021-03-22] MEDS: IV NORMAL SALINE 1000ML BAG 1,000 ML IV SCH ×2 (09:38→17:45)
[2021-03-22 11:00] VITALS: BP 141/71
--- NOTE | 2021-03-22 11:40 | PDOC ---
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 History of hypertension History of GERD Keep NG tube in to LI WS Appreciate vascular surgery recommendations to monitor AAA and 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 Pending small bowel follow-through per general surgery Pending neurosurgery evaluation L1 transverse process fracture Pending orthostatic vital signs Pending PT/OT evaluation and recommendations Delirium prevention protocol Continue empiric IV antibiotics Pending urine cultures sensitivities Continue IV fluids Trend creatinine Monitor urine output Strict I/O Fall precautions PT OT evaluation Orthostatic vital signs Lovenox for DVT prophylaxis Protonix GI prophylaxis Cardiac diet CODE STATUS full Discussed with RN and SW Disposition inpatient management as above DPOA: Sister, Margoth Mauro History of Present Illness History of Present Illness 89-year-old female with past medical history of hypertension and 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 Patient lives at home with sister and daughter. Sister is a nurse and daughter is the main caregiver. Apparently in the past few days patient has been having more urinary frequency and falls. She does not usually use any walking device. Son is at bedside is able to provide history along with the patient. They also noticed that the patient was having some bouts of confusion which is not normal for her. Patient has hard of hearing and is able to answer some questions appropriately. Patient denies any suprapubic discomfort or dysuria. She does admit to a fall from ground-level yesterday due to slipping and admits to striking her head but denies loss of consciousness, nausea or vomiting or amnesia to events. She is not on any blood thinners. Patient denies any chest pain, fevers, nausea vomiting, abdominal pain, hematuria or diarrhea. 03/16/21 No acute events overnight. Pt apparently had a fall from commode this morning and complained of right hip and elbow pain. Also complained of headache. CT he ad and XR of Right elbow and Hip was obtained. Negative for any acute fractures. Lortab 5/325 was started for pain, but this was not controlled well. Escalated with IV morphine for breakthrough pain and will watch overnight. No urinary symptoms or complaints. Despite incident this morning, patient is less confused and AAOx3. AF and VSS. 03/17/2021 No acute events overnight. Patient seen and examined bedside. Patient is at her baseline mental status with some confusion according to niece who is at bedside. Patient continues to complain of right hip pain where she fell. Pending PT evaluation before determining if I should scan her vertebrae for fractures from her fall while in the hospital. We will continue to keep her inpatient for IV n.p.o. pain control. Continue IV antibiotics for UTI. Waiting for sensitivities. Patient's chart, labs, images were reviewed and discussed with RN 03/18/2021 No acute events overnight. Patient seen and examined bedside. Episode of vomiting this morning with morphine dose. Improved with Zofran. Patient continues to have minimal output through her colostomy. She continues to have some back pain. Multiple findings and images yesterday which requires evaluation from vascular surgery, general surgery, neurosurgery. Pending their evaluation.. We will keep n.p.o. for now. Patient's chart, labs, images were reviewed and discussed with RN 03/20 No major overnight events. Discussed with patient and son at bedside at great length. Trying clears today. Plan of care discussed bedside RN. 03/21 evaluated and examined at bedside. ADAT. discussed wtih bedside RN. 03/22 Patient evaluated examined at bedside. Resting in bed no major complaints. Having some output from ostomy. Checking x-ray today per surgery. Plan of care discussed with bedside RN. Vitals/I&O Vitals/I&O: Vital Signs Date Time Temp Pulse Resp B/P (MAP) Pulse Ox O2 Delivery O2 Flow Rate FiO2 03/22/21 11:00 97.3 75 22 141/71 (94) 94 Nasal Cannula 2.0 97.3 I & O 03/21/21 03/21/21 03/22/21 15:00 23:00 07:00 Intake Total 600 ml Output Total 700 ml 700 ml Balance -700 ml -100 ml Physical Exam General: Alert, Oriented X3, Cooperative Heart: Regular rate Lungs: Clear, Other Abdomen: Soft, Other (ttp upper abdomen, ostomy with stool) Extremities: No clubbing, No cyanosis Skin: No rashes, No breakdown Assessment and Plan Assessmemt and Plan Problems Medical Problems: (1) Acute cystitis without hematuria Status: Acute (2) Acute metabolic encephalopathy Status: Acute (3) Acute renal insufficiency Status: Acute (4) Dehydration Status: Acute (5) Encounter for medical screening examination Status: Acute Comment Review of Relevant I have reviewed the following items jazmine (where applicable) has been applied. Justifications for Admission Other Justification UTI and altered mental status JAYSON THOMPSON MD Mar 22, 2021 11:40
[2021-03-22 15:00] VITALS: BP 125/77
--- NOTE | 2021-03-22 17:08 | RAD ---
XR ABDOMEN COMP ACUTE History: Small bowel obstruction Comparison: 03/21/2021, 03/19/2021 Technique: Frontal chest with upright and supine radiographs of the abdomen and pelvis. Findings: Chest: Mild right diaphragm elevation and bibasilar atelectasis. No significant airspace consolidatio n. Interval removal of nasogastric tube. Bowel gas pattern: Redemonstrated gaseous distention of the small bowel loop in the left mid abdomen, similar prominence to 1225 and 1223. Contrast within the ascending and transverse colon to the left upper quadrant ostomy. Free air: None. Abnormal calcifications: Calcified abdominal aortic aneurysm. Bones: Degenerative changes of the spine. Other: None. Impression: 1. Persistent gaseous distention of a small bowel loop in the left lower quadrant concerning for par tial obstruction. 2. Contrast again seen in the ascending and transverse colon extending to the left upper quadrant os lili. Electronically signed by: Aaron Delong MD (03/22/2021 5:05 PM) [facility] [place]
[2021-03-22 19:00] VITALS: BP 139/80
[2021-03-22] MEDS: PANTOPRAZOLE 40 MG TABLET.DR. PO SCH (22:37)
[2021-03-22 23:00] VITALS: BP 113/71
[2021-03-23] VITALS (7 sets, daily range): BP systolic 90–154; BP diastolic 52–87
[2021-03-23] MEDS: IV NORMAL SALINE 1000ML BAG 1,000 ML IV SCH ×3 (04:32→20:31)
--- NOTE | 2021-03-23 09:01 | PDOC ---
PROGRESS NOTES Date of Service DATE: 03/23/21 TIME: 08:59 Subjective Subjective She c/o left upper quadrant area abdominal pain. Objective Objective Vital Signs Date Time Temp Pulse Resp B/P (MAP) Pulse Ox O2 Delivery O2 Flow Rate FiO2 03/23/21 03:00 98.3 54 18 152/67 (95) 94 98.3 03/22/21 19:00 Nasal Cannula 03/22/21 15:00 2.0 Intake and Output 03/23/21 07:00 Intake Total 180 ml Balance 180 ml Intake Oral 180 ml Physical Exam Physical Exam She is alert,sitting in bed and she continue with low back pain with mobility. Assessment Assessment Problems Medical Problems: (1) Acute cystitis without hematuria Status: Acute (2) Acute metabolic encephalopathy Status: Acute (3) Acute renal insufficiency Status: Acute (4) Dehydration Status: Acute (5) Encounter for medical screening examination Status: Acute Plan Plan of Care To get her up as tolerated. Comment Review of Relevant I have reviewed the following items jazmine (where applicable) has been applied. Labs Microbiology 03/15/21 Urine Culture - Final, Complete 03/15/21 Antimicrobic Susceptibility - Final, Complete Medications Current Medications Sodium Chloride 500 ml @ 500 mls/hr 1X ONCE IV Last administered on 03/15/21at 09:23; Start 03/15/21 at 09:00; Stop 03/15/21 at 09:59; Status DC Acetaminophen (Tylenol) 1,000 mg 1X ONCE PO Last administered on 03/15/21at 09:23; Start 03/15/21 at 09:15; Stop 03/15/21 at 09:16; Status DC Sodium Chloride 500 ml @ 500 mls/hr 1X ONCE IV Last administered on 03/15/21at 10:42; Start 03/15/21 at 10:00; Stop 03/15/21 at 10:59; Status DC Ondansetron HCl (Zofran) 4 mg PRN Q8HRS PRN IVP NAUSEA/VOMITING; Start 03/15/21 at 10:30; Stop 03/15/21 at 13:09; Status DC Sodium Chloride 1,000 ml @ 75 mls/hr [id number] IV Last administered on 03/15/21at 12:39; Start 03/15/21 at 10:30; Stop 03/16/21 at 10:29; Status DC Acetaminophen (Tylenol) 650 mg PRN Q4HRS PRN PO PAIN; Start 03/15/21 at 10:30; Stop 03/15/21 at 13:10; Status DC Sennosides (Senna) 17.2 mg PRN BID PRN PO CONSTIPATION; Start 03/15/21 at 13:15 Docusate Sodium (Colace) 100 mg PRN DAILY PRN PO HARD STOOLS; Start 03/15/21 at 13:15 Ondansetron HCl (Zofran) 4 mg PRN Q6HRS PRN IVP NAUSEA/VOMITING Last administered on 03/19/21at 15:30; Start 03/15/21 at 13:15 Dextrose (Dextrose 50%-Water Syringe) 12.5 gm PRN Q15MIN PRN IV SEE COMMENTS; Start 03/15/21 at 13:15 Sodium Chloride 1,000 ml @ 100 mls/hr Q10H IV Last administered on 03/23/21at 04:32; Start 03/15/21 at 13:15 Acetaminophen (Tylenol) 650 mg PRN Q4HRS PRN PO TEMP OVER 100.4F OR MILD PAIN Last administered on 03/17/21at 09:56; Start 03/15/21 at 13:15 Lorazepam (Ativan) 0.5 mg PRN Q6HRS PRN PO ANXIETY / AGITATION; Start 03/15/21 at 13:15 Lorazepam (Ativan Inj) 0.25 mg PRN Q4HRS PRN IV ANXIETY / AGITATION; Start 03/15/21 at 13:15 Enoxaparin Sodium (Lovenox 30mg Syringe) 30 mg DAILY SQ Last administered on 03/22/21at 09:35; Start 03/15/21 at 14:00 Pantoprazole Sodium (Protonix) 40 mg DAILYAC PO Last administered on 03/15/21at 17:30; Start 03/15/21 at 14:00; Stop 03/15/21 at 21:58; Status DC Ceftriaxone Sodium (Rocephin) 1 gm Q24H IVP Last administered on 03/17/21at 15:22; Start 03/15/21 at 14:00; Stop 03/18/21 at 13:59; Status DC Prochlorperazine Edisylate (Compazine) 10 mg PRN Q6HRS PRN IV NAUSEA/VOMITING 2ND CHOICE Last administered on 03/18/21at 14:17; Start 03/15/21 at 13:15 Zolpidem Tartrate (Ambien) 2.5 mg PRN QHS PRN PO INSOMNIA Last administered on 03/16/21at 21:43; Start 03/15/21 at 13:15 Carvedilol (Coreg) 12.5 mg BIDWMEALS PO ; Start 03/16/21 at 08:00; Stop 03/15/21 at 22:15; Status DC Pantoprazole Sodium (Protonix) 40 mg HS PO Last administered on 03/22/21at 22:37; Start 03/15/21 at 22:00 Carvedilol (Coreg) 12.5 mg BIDWMEALS PO Last administered on 03/22/21at 17:44; Start 03/15/21 at 22:30 Magnesium Sulfate 50 ml @ 25 mls/hr 1X ONCE IV Last administered on 03/16/21at 08:51; Start 03/16/21 at 08:15; Stop 03/16/21 at 10:14; Status DC Acetaminophen/ Hydrocodone Bitart (Lortab 5/325) 1 tab PRN Q6HRS PRN PO MODERATE TO SEVERE PAIN Last administered on 03/17/21at 06:23; Start 03/16/21 at 10:15; Stop 03/17/21 at 10:09; Status DC Lactobacillus Rhamnosus (Culturelle) 1 cap BID PO Last administered on 03/22/21at 22:37; Start 03/16/21 at 21:00 Morphine Sulfate (Morphine Sulfate) 2 mg PRN Q2HR PRN IV PAIN Last administered on 03/18/21at 09:21; Start 03/16/21 at 16:00; Stop 03/18/21 at 19:36; Status DC Acetaminophen/ Hydrocodone Bitart (Lortab 5/325) 2 tab PRN Q6HRS PRN PO MODERATE TO SEVERE PAIN; Start 03/17/21 at 10:15 Prochlorperazine Edisylate (Compazine) 10 mg PRN Q6HRS PRN IV NAUSEA/VOMITING; Start 03/18/21 at 14:00; Status UNV Fentanyl Citrate (Fentanyl 2ml Vial) 25 mcg PRN Q3HRS PRN IVP PAIN Last administered on 03/19/21at 15:40; Start 03/18/21 at 19:45 Iohexol (Omnipaque 300 Mg/ml) 400 ml 1X ONCE PO Last administered on 03/19/21at 08:40; Start 03/19/21 at 07:45; Stop 03/19/21 at 07:46; Status DC Info (CONTRAST GIVEN -- Rx MONITORING) 1 each PRN DAILY PRN MC SEE COMMENTS; Start 03/19/21 at 07:45; Stop 03/21/21 at 07:44; Status DC Active Scripts Active Proair Hfa Inhaler (Albuterol Sulfate) 8.5 Gm Hfa.aer.ad 2 Puff IH PRN Q4-6HRS PRN 21 Days Tessalon Perle (Benzonatate) 100 Mg Capsule 1 Cap PO TID Percocet 5-325 Mg Tablet (Oxycodone/Acetaminophen) 1 Each Tablet 1 Tab PO PRN Q6HRS PRN Amoxicillin 500 Mg Capsule 1 Cap PO Q8HRS Protonix (Pantoprazole Sodium) 40 Mg Tablet 40 Mg PO DAILYAC Reported Probiotic (Lactobacillus Combination No.4) 1 Each Capsule 1 Each PO DAILY08 Coreg (Carvedilol) 12.5 Mg Tablet 1 Tab PO BID Avapro (Irbesartan) 150 Mg Tablet 150 Mg PO DAILY Vitals/I & O Vital Sign - Last 24 Hours 03/22/21 03/22/21 03/22/21 03/22/21 09:35 11:00 15:00 17:44 Temp 97.3 97.3 97.3 97.3 Pulse 72 75 67 67 Resp 22 22 B/P (MAP) 174/75 141/71 (94) 125/77 (93) 125/77 Pulse Ox 94 92 O2 Delivery Nasal Cannula Nasal Cannula O2 Flow Rate 2.0 2.0 03/22/21 03/22/21 03/23/21 19:00 23:00 03:00 Temp 97.7 97.5 98.3 97.7 97.5 98.3 Pulse 57 54 Resp 18 18 B/P (MAP) 139/80 (99) 113/71 (85) 152/67 (95) Pulse Ox 92 94 O2 Delivery Nasal Cannula Intake and Output 03/22/21 03/22/21 03/23/21 15:00 23:00 07:00 Intake Total 180 ml Balance 180 ml Justifications for Admission Other Justification UTI and altered mental status OPHELIA SORENSON MD Mar 23, 2021 09:01
[2021-03-23] MEDS: HYDROcodone/APAP 5/325MG 1 TAB TABLET PO PRN (09:22)
[2021-03-23] MEDS: LACTOBACILLUS RHAMNOSUS GG 1 CAPSULE. PO SCH ×2 (09:22→20:31)
[2021-03-23] MEDS: CARVEDILOL 12.5 MG TABLET. PO SCH ×2 (09:23→15:20)
[2021-03-23] MEDS: ENOXAPARIN 30 MG/0.3 ML SYRINGE. SQ SCH (09:24)
--- NOTE | 2021-03-23 09:29 | PDOC ---
SURGICAL PROGRESS NOTE DATE: 03/23/21 TIME: 09:27 Subjective still having upper abdominal pain taking some clears, no n/v Vital Signs Vital Signs Date Time Temp Pulse Resp B/P (MAP) Pulse Ox O2 Delivery O2 Flow Rate FiO2 03/23/21 09:23 68 144/74 03/23/21 09:22 94 Nasal Cannula 2.0 03/23/21 03:00 98.3 18 98.3 I&O Intake and Output 03/23/21 07:00 Intake Total 180 ml Balance 180 ml Intake Oral 180 ml General: Alert, Cooperative Abdomen: Soft, Other (stool in ostomy, no flatus, ttp upper abdomen ) Problem List Problems Medical Problems: (1) Acute cystitis without hematuria Status: Acute (2) Acute metabolic encephalopathy Status: Acute (3) Acute renal insufficiency Status: Acute (4) Dehydration Status: Acute (5) Encounter for medical screening examination Status: Acute Assessment/Plan supportive care, increase mobility, xr reviewed, no current surgery plans, will review with Dr Miles Justicifation of Admission Dx: Justifications for Admission: Justification of Admission Dx: Yes SAM SOTELO SITE ENGINEER Mar 23, 2021 09:29
--- NOTE | 2021-03-23 10:31 | NUR ---
SW following. Discussed with RN, SW reached out to [facility], they had not received the fax last week. SW refaxed. SW requested repeat COVID PCR for placement. Awaiting acceptance decision. FALGUNI will continue to follow.
[2021-03-23] MEDS: ACETAMINOPHEN 325 MG TABLET. PO PRN (15:18)
--- NOTE | 2021-03-23 17:46 | NUR ---
Wound Care Wound Type/Assessment: Pt seen for wound care consultation re: coccyx and elbow wounds. Pt's coccyx is red, blanchable, with skin intact, no wounds noted. R elbow has a small skin tear, flap is absent, wound bed red, with yellow slough, superficial. Treatment Recommendations/Plan: Calazime cream to coccyx area. Xeroform gauze and Aquacel foam to R elbow, change every 3-4 days. Education provided: to pt re: frequent repositioning to prevent pressure ulcers. Pt left in upright position for dinner, heels floated. Offloading surface/device: n/a Recommended Referrals/Tests: n/a Discharge Recommendations for dressings: see treatment plan above
--- NOTE | 2021-03-23 20:04 | PDOC ---
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 History of hypertension History of GERD Keep NG tube in to LI WS Appreciate vascular surgery recommendations to monitor AAA and 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 Pending small bowel follow-through per general surgery Pending neurosurgery evaluation L1 transverse process fracture Pending orthostatic vital signs Pending PT/OT evaluation and recommendations Delirium prevention protocol Continue empiric IV antibiotics Pending urine cultures sensitivities Continue IV fluids Trend creatinine Monitor urine output Strict I/O Fall precautions PT OT evaluation Orthostatic vital signs Lovenox for DVT prophylaxis Protonix GI prophylaxis Cardiac diet CODE STATUS full Discussed with RN and SW Disposition inpatient management as above DPOA: Sister, Margoth Mauro History of Present Illness History of Present Illness 89-year-old female with past medical history of hypertension and 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 Patient lives at home with sister and daughter. Sister is a nurse and daughter is the main caregiver. Apparently in the past few days patient has been having more urinary frequency and falls. She does not usually use any walking device. Son is at bedside is able to provide history along with the patient. They also noticed that the patient was having some bouts of confusion which is not normal for her. Patient has hard of hearing and is able to answer some questions appropriately. Patient denies any suprapubic discomfort or dysuria. She does admit to a fall from ground-level yesterday due to slipping and admits to striking her head but denies loss of consciousness, nausea or vomiting or amnesia to events. She is not on any blood thinners. Patient denies any chest pain, fevers, nausea vomiting, abdominal pain, hematuria or diarrhea. 03/16/21 No acute events overnight. Pt apparently had a fall from commode this morning and complained of right hip and elbow pain. Also complained of headache. CT he ad and XR of Right elbow and Hip was obtained. Negative for any acute fractures. Lortab 5/325 was started for pain, but this was not controlled well. Escalated with IV morphine for breakthrough pain and will watch overnight. No urinary symptoms or complaints. Despite incident this morning, patient is less confused and AAOx3. AF and VSS. 03/17/2021 No acute events overnight. Patient seen and examined bedside. Patient is at her baseline mental status with some confusion according to niece who is at bedside. Patient continues to complain of right hip pain where she fell. Pending PT evaluation before determining if I should scan her vertebrae for fractures from her fall while in the hospital. We will continue to keep her inpatient for IV n.p.o. pain control. Continue IV antibiotics for UTI. Waiting for sensitivities. Patient's chart, labs, images were reviewed and discussed with RN 03/18/2021 No acute events overnight. Patient seen and examined bedside. Episode of vomiting this morning with morphine dose. Improved with Zofran. Patient continues to have minimal output through her colostomy. She continues to have some back pain. Multiple findings and images yesterday which requires evaluation from vascular surgery, general surgery, neurosurgery. Pending their evaluation.. We will keep n.p.o. for now. Patient's chart, labs, images were reviewed and discussed with RN 03/20 No major overnight events. Discussed with patient and son at bedside at great length. Trying clears today. Plan of care discussed bedside RN. 03/21 evaluated and examined at bedside. ADAT. discussed wtih bedside RN. 03/22 Patient evaluated examined at bedside. Resting in bed no major complaints. Having some output from ostomy. Checking x-ray today per surgery. Plan of care discussed with bedside RN. 03/23 Patient eval and examined at bedside. Doing ok with clears thus far. Needs placement. Vitals/I&O Vitals/I&O: Vital Signs Date Time Temp Pulse Resp B/P (MAP) Pulse Ox O2 Delivery O2 Flow Rate FiO2 03/23/21 19:33 Nasal Cannula 2.0 03/23/21 15:00 97.3 69 18 90/52 (65) 99 97.3 I & O 03/22/21 03/22/21 03/23/21 15:00 23:00 07:00 Intake Total 180 ml Balance 180 ml Physical Exam General: Alert, Cooperative Heart: Regular rate Lungs: Clear, Other Abdomen: Soft, Other (stool in ostomy, no flatus, ttp upper abdomen ) Extremities: No clubbing, No cyanosis Skin: No rashes, No breakdown Assessment and Plan Assessmemt and Plan Problems Medical Problems: (1) Acute cystitis without hematuria Status: Acute (2) Acute metabolic encephalopathy Status: Acute (3) Acute renal insufficiency Status: Acute (4) Dehydration Status: Acute (5) Encounter for medical screening examination Status: Acute Comment Review of Relevant I have reviewed the following items jazmine (where applicable) has been applied. Justifications for Admission Other Justification UTI and altered mental status JAYSON THOMPSON MD Mar 23, 2021 20:04
[2021-03-23] MEDS: PANTOPRAZOLE 40 MG TABLET.DR. PO SCH (20:31)
[2021-03-24 03:00] VITALS: BP 124/53
[2021-03-24] MEDS: IV NORMAL SALINE 1000ML BAG 1,000 ML IV SCH (05:44)
[2021-03-24 07:15] VITALS: BP 132/72
--- NOTE | 2021-03-24 09:19 | PDOC ---
PROGRESS NOTES Date of Service DATE: 03/24/21 TIME: 09:13 Subjective Subjective She admits continued left upper quadrant abdominal pain. Objective Objective Vital Signs Date Time Temp Pulse Resp B/P (MAP) Pulse Ox O2 Delivery O2 Flow Rate FiO2 03/24/21 07:15 97.6 77 18 132/72 (92) 95 Nasal Cannula 2.0 97.6 Intake and Output 03/24/21 07:00 Intake Total 2480 ml Balance 2480 ml Intake Oral 480 ml IV Total 2000 ml # Voids 1 Physical Exam Physical Exam She is alert,supine in bed,bloated abdomen and continues with tenderness to palpation over left upper quadrant of her abdomen. Assessment Assessment Problems Medical Problems: (1) Acute cystitis without hematuria Status: Acute (2) Acute metabolic encephalopathy Status: Acute (3) Acute renal insufficiency Status: Acute (4) Dehydration Status: Acute (5) Encounter for medical screening examination Status: Acute Plan Plan of Care She might need to ave NG tube replaced. Comment Review of Relevant I have reviewed the following items jazmine (where applicable) has been applied. Labs Microbiology 03/15/21 Urine Culture - Final, Complete 03/15/21 Antimicrobic Susceptibility - Final, Complete Medications Current Medications Sodium Chloride 500 ml @ 500 mls/hr 1X ONCE IV Last administered on 03/15/21at 09:23; Start 03/15/21 at 09:00; Stop 03/15/21 at 09:59; Status DC Acetaminophen (Tylenol) 1,000 mg 1X ONCE PO Last administered on 03/15/21at 09:23; Start 03/15/21 at 09:15; Stop 03/15/21 at 09:16; Status DC Sodium Chloride 500 ml @ 500 mls/hr 1X ONCE IV Last administered on 03/15/21at 10:42; Start 03/15/21 at 10:00; Stop 03/15/21 at 10:59; Status DC Ondansetron HCl (Zofran) 4 mg PRN Q8HRS PRN IVP NAUSEA/VOMITING; Start 03/15/21 at 10:30; Stop 03/15/21 at 13:09; Status DC Sodium Chloride 1,000 ml @ 75 mls/hr [id number] IV Last administered on 03/15/21at 12:39; Start 03/15/21 at 10:30; Stop 03/16/21 at 10:29; Status DC Acetaminophen (Tylenol) 650 mg PRN Q4HRS PRN PO PAIN; Start 03/15/21 at 10:30; Stop 03/15/21 at 13:10; Status DC Sennosides (Senna) 17.2 mg PRN BID PRN PO CONSTIPATION; Start 03/15/21 at 13:15 Docusate Sodium (Colace) 100 mg PRN DAILY PRN PO HARD STOOLS; Start 03/15/21 at 13:15 Ondansetron HCl (Zofran) 4 mg PRN Q6HRS PRN IVP NAUSEA/VOMITING Last administered on 03/19/21at 15:30; Start 03/15/21 at 13:15 Dextrose (Dextrose 50%-Water Syringe) 12.5 gm PRN Q15MIN PRN IV SEE COMMENTS; Start 03/15/21 at 13:15 Sodium Chloride 1,000 ml @ 100 mls/hr Q10H IV Last administered on 03/24/21at 05:44; Start 03/15/21 at 13:15 Acetaminophen (Tylenol) 650 mg PRN Q4HRS PRN PO TEMP OVER 100.4F OR MILD PAIN Last administered on 03/23/21at 15:18; Start 03/15/21 at 13:15 Lorazepam (Ativan) 0.5 mg PRN Q6HRS PRN PO ANXIETY / AGITATION; Start 03/15/21 at 13:15 Lorazepam (Ativan Inj) 0.25 mg PRN Q4HRS PRN IV ANXIETY / AGITATION; Start 03/15/21 at 13:15 Enoxaparin Sodium (Lovenox 30mg Syringe) 30 mg DAILY SQ Last administered on 03/23/21at 09:24; Start 03/15/21 at 14:00 Pantoprazole Sodium (Protonix) 40 mg DAILYAC PO Last administered on 03/15/21at 17:30; Start 03/15/21 at 14:00; Stop 03/15/21 at 21:58; Status DC Ceftriaxone Sodium (Rocephin) 1 gm Q24H IVP Last administered on 03/17/21at 15:22; Start 03/15/21 at 14:00; Stop 03/18/21 at 13:59; Status DC Prochlorperazine Edisylate (Compazine) 10 mg PRN Q6HRS PRN IV NAUSEA/VOMITING 2ND CHOICE Last administered on 03/18/21at 14:17; Start 03/15/21 at 13:15 Zolpidem Tartrate (Ambien) 2.5 mg PRN QHS PRN PO INSOMNIA Last administered on 03/16/21at 21:43; Start 03/15/21 at 13:15 Carvedilol (Coreg) 12.5 mg BIDWMEALS PO ; Start 03/16/21 at 08:00; Stop 03/15/21 at 22:15; Status DC Pantoprazole Sodium (Protonix) 40 mg HS PO Last administered on 03/23/21at 20:31; Start 03/15/21 at 22:00 Carvedilol (Coreg) 12.5 mg BIDWMEALS PO Last administered on 03/23/21at 09:23; Start 03/15/21 at 22:30 Magnesium Sulfate 50 ml @ 25 mls/hr 1X ONCE IV Last administered on 03/16/21at 08:51; Start 03/16/21 at 08:15; Stop 03/16/21 at 10:14; Status DC Acetaminophen/ Hydrocodone Bitart (Lortab 5/325) 1 tab PRN Q6HRS PRN PO MODERATE TO SEVERE PAIN Last administered on 03/17/21at 06:23; Start 03/16/21 at 10:15; Stop 03/17/21 at 10:09; Status DC Lactobacillus Rhamnosus (Culturelle) 1 cap BID PO Last administered on 03/23/21at 20:31; Start 03/16/21 at 21:00 Morphine Sulfate (Morphine Sulfate) 2 mg PRN Q2HR PRN IV PAIN Last administered on 03/18/21at 09:21; Start 03/16/21 at 16:00; Stop 03/18/21 at 19:36; Status DC Acetaminophen/ Hydrocodone Bitart (Lortab 5/325) 2 tab PRN Q6HRS PRN PO MODERATE TO SEVERE PAIN Last administered on 03/23/21at 09:22; Start 03/17/21 at 10:15 Prochlorperazine Edisylate (Compazine) 10 mg PRN Q6HRS PRN IV NAUSEA/VOMITING; Start 03/18/21 at 14:00; Status UNV Fentanyl Citrate (Fentanyl 2ml Vial) 25 mcg PRN Q3HRS PRN IVP PAIN Last adm inistered on 03/19/21at 15:40; Start 03/18/21 at 19:45 Iohexol (Omnipaque 300 Mg/ml) 400 ml 1X ONCE PO Last administered on 1 05/20/20at 08:40; Start 03/19/21 at 07:45; Stop 03/19/21 at 07:46; Status DC Info (CONTRAST GIVEN -- Rx MONITORING) 1 each PRN DAILY PRN MC SEE COMMENTS; Start 03/19/21 at 07:45; Stop 03/21/21 at 07:44; Status DC Active Scripts Active Proair Hfa Inhaler (Albuterol Sulfate) 8.5 Gm Hfa.aer.ad 2 Puff IH PRN Q4-6HRS PRN 21 Days Tessalon Perle (Benzonatate) 100 Mg Capsule 1 Cap PO TID Percocet 5-325 Mg Tablet (Oxycodone/Acetaminophen) 1 Each Tablet 1 Tab PO PRN Q6HRS PRN Amoxicillin 500 Mg Capsule 1 Cap PO Q8HRS Protonix (Pantoprazole Sodium) 40 Mg Tablet 40 Mg PO DAILYAC Reported Probiotic (Lactobacillus Combination No.4) 1 Each Capsule 1 Each PO DAILY08 Coreg (Carvedilol) 12.5 Mg Tablet 1 Tab PO BID Avapro (Irbesartan) 150 Mg Tablet 150 Mg PO DAILY Vitals/I & O Vital Sign - Last 24 Hours 03/23/21 03/23/21 03/23/21 03/23/21 09:22 09:23 09:58 11:00 Temp 97.3 97.3 Pulse 68 65 Resp 18 B/P (MAP) 144/74 154/87 (109) Pulse Ox 94 94 97 O2 Delivery Nasal Cannula Nasal Cannula Nasal Cannula O2 Flow Rate 2.0 2.0 2.0 03/23/21 03/23/21 03/23/21 03/23/21 11:43 15:00 19:00 19:33 Temp 98.2 97.3 98.0 98.2 97.3 98.0 Pulse 76 69 68 Resp 12 18 18 B/P (MAP) 153/84 (107) 90/52 (65) 128/79 (95) Pulse Ox 94 99 96 O2 Delivery Nasal Cannula Nasal Cannula Nasal Cannula Nasal Cannula O2 Flow Rate 2.0 2.0 2.0 2.0 03/23/21 03/24/21 03/24/21 23:00 03:00 07:15 Temp 97.9 97.5 97.6 97.9 97.5 97.6 Pulse 68 66 77 Resp 18 18 18 B/P (MAP) 120/61 (80) 124/53 (76) 132/72 (92) Pulse Ox 96 94 95 O2 Delivery Nasal Cannula Nasal Cannula Nasal Cannula O2 Flow Rate 2.0 2.0 2.0 Intake and Output 03/23/21 03/23/21 03/24/21 15:00 23:00 07:00 Intake Total 1120 ml 1360 ml Balance 1120 ml 1360 ml Justifications for Admission Other Justification UTI and altered mental status OPHELIA SORENSON MD Mar 24, 2021 09:19
[2021-03-24] MEDS: LACTOBACILLUS RHAMNOSUS GG 1 CAPSULE. PO SCH (09:24)
[2021-03-24] MEDS: CARVEDILOL 12.5 MG TABLET. PO SCH (09:24)
[2021-03-24] MEDS: ENOXAPARIN 30 MG/0.3 ML SYRINGE. SQ SCH (09:25)
[2021-03-24 11:19] VITALS: BP 102/60
[2021-03-24 11:22] LABS: BASO % 0 % (0-3); EOS % 0 % (0-3); HEMATOCRIT 36.4 % (36.0-47.0); HEMOGLOBIN 11.8 g/dL (12.0-15.5); LYMPH # 0.6 x10^3/uL (1.0-4.8); LYMPH % 6 % (24-48); MEAN CORPUSCULAR HEMOGLOBIN 33 pg (25-35); MEAN CORPUSCULAR HGB CONC 33 g/dL (31-37); MEAN CORPUSCULAR VOLUME 101 fL (79-100); MONO # 0.7 x10^3/uL (0.0-1.1); MONO % 6 % (0-9); NEUT # 9.8 x10^3/uL (1.8-7.7); NEUT % 88 % (31-73); PLATELET COUNT 195 x10^3/uL (140-400); RED BLOOD COUNT 3.61 x10^6/uL (3.50-5.40); RED CELL DISTRIBUTION WIDTH 13.2 % (11.5-14.5); WHITE BLOOD COUNT 11.2 x10^3/uL (4.0-11.0)
[2021-03-24] MEDS: ACETAMINOPHEN 325 MG TABLET. PO PRN (11:38)
[2021-03-24 11:43] LABS: CALCIUM 9.3 mg/dL (8.5-10.1); CREATININE 1.4 mg/dL (0.6-1.0); GFR 35.4; POTASSIUM 3.9 mmol/L (3.5-5.1)
--- NOTE | 2021-03-24 12:19 | PDOC ---
SURGICAL PROGRESS NOTE DATE: 03/24/21 TIME: 12:18 Subjective more distended abdominal pain immobile mostly Vital Signs Vital Signs Date Time Temp Pulse Resp B/P (MAP) Pulse Ox O2 Delivery O2 Flow Rate FiO2 03/24/21 09:24 77 132/72 03/24/21 07:15 97.6 18 95 Nasal Cannula 2.0 97.6 I&O Intake and Output 03/24/21 07:00 Intake Total 2480 ml Balance 2480 ml Intake Oral 480 ml IV Total 2000 ml # Voids 1 General: Cooperative, No acute distress Abdomen: Soft, Other (distended, some stool in ostomy ) Labs Laboratory Tests Test 03/24/21 11:00 White Blood Count 11.2 x10^3/uL (4.0-11.0) Red Blood Count 3.61 x10^6/uL (3.50-5.40) Hemoglobin 11.8 g/dL (12.0-15.5) Hematocrit 36.4 % (36.0-47.0) Mean Corpuscular Volume 101 fL (79-100) Mean Corpuscular Hemoglobin 33 pg (25-35) Mean Corpuscular Hemoglobin Concent 33 g/dL (31-37) Red Cell Distribution Width 13.2 % (11.5-14.5) Platelet Count 195 x10^3/uL (140-400) Neutrophils (%) (Auto) 88 % (31-73) Lymphocytes (%) (Auto) 6 % (24-48) Monocytes (%) (Auto) 6 % (0-9) Eosinophils (%) (Auto) 0 % (0-3) Basophils (%) (Auto) 0 % (0-3) Neutrophils # (Auto) 9.8 x10^3/uL (1.8-7.7) Lymphocytes # (Auto) 0.6 x10^3/uL (1.0-4.8) Monocytes # (Auto) 0.7 x10^3/uL (0.0-1.1) Eosinophils # (Auto) 0.0 x10^3/uL (0.0-0.7) Basophils # (Auto) 0.0 x10^3/uL (0.0-0.2) Sodium Level 143 mmol/L (136-145) Potassium Level 3.9 mmol/L (3.5-5.1) Chloride Level 106 mmol/L (98-107) Carbon Dioxide Level 25 mmol/L (21-32) Anion Gap 12 (6-14) Blood Urea Nitrogen 27 mg/dL (7-20) Creatinine 1.4 mg/dL (0.6-1.0) Estimated GFR (Cockcroft-Gault) 35.4 Glucose Level 80 mg/dL (70-99) Calcium Level 9.3 mg/dL (8.5-10.1) Laboratory Tests Test 03/24/21 11:00 White Blood Count 11.2 x10^3/uL (4.0-11.0) Red Blood Count 3.61 x10^6/uL (3.50-5.40) Hemoglobin 11.8 g/dL (12.0-15.5) Hematocrit 36.4 % (36.0-47.0) Mean Corpuscular Volume 101 fL (79-100) Mean Corpuscular Hemoglobin 33 pg (25-35) Mean Corpuscular Hemoglobin Concent 33 g/dL (31-37) Red Cell Distribution Width 13.2 % (11.5-14.5) Platelet Count 195 x10^3/uL (140-400) Neutrophils (%) (Auto) 88 % (31-73) Lymphocytes (%) (Auto) 6 % (24-48) Monocytes (%) (Auto) 6 % (0-9) Eosinophils (%) (Auto) 0 % (0-3) Basophils (%) (Auto) 0 % (0-3) Neutrophils # (Auto) 9.8 x10^3/uL (1.8-7.7) Lymphocytes # (Auto) 0.6 x10^3/uL (1.0-4.8) Monocytes # (Auto) 0.7 x10^3/uL (0.0-1.1) Eosinophils # (Auto) 0.0 x10^3/uL (0.0-0.7) Basophils # (Auto) 0.0 x10^3/uL (0.0-0.2) Sodium Level 143 mmol/L (136-145) Potassium Level 3.9 mmol/L (3.5-5.1) Chloride Level 106 mmol/L (98-107) Carbon Dioxide Level 25 mmol/L (21-32) Anion Gap 12 (6-14) Blood Urea Nitrogen 27 mg/dL (7-20) Creatinine 1.4 mg/dL (0.6-1.0) Estimated GFR (Cockcroft-Gault) 35.4 Glucose Level 80 mg/dL (70-99) Calcium Level 9.3 mg/dL (8.5-10.1) Problem List Problems Medical Problems: (1) Acute cystitis without hematuria Status: Acute (2) Acute metabolic encephalopathy Status: Acute (3) Acute renal insufficiency Status: Acute (4) Dehydration Status: Acute (5) Encounter for medical screening examination Status: Acute Assessment/Plan xr reviewed, appears contrast in colon--will review with Dr Miles Justicifation of Admission Dx: Justifications for Admission: Justification of Admission Dx: Yes SAM SOTELO [employer] Mar 24, 2021 12:19
[2021-03-24] MEDS: HYDROcodone/APAP 5/325MG 1 TAB TABLET PO PRN (12:49)
--- NOTE | 2021-03-24 15:58 | RAD ---
EXAM: Abdomen, single view. HISTORY: Distention. COMPARISON: 03/22/2021 FINDINGS: A frontal view of the abdomen is obtained. There is a small amount of residual contrast wit hin distended loops of small bowel. There is also residual contrast within the proximal colon. There is a left ventral abdominal wall ostomy. There are cholecystectomy clips. There is an abdominal aorti c aneurysm, better characterized on the CT performed 03/16/2021. IMPRESSION: Persistent distended loops of small bowel and delayed transit of contrast from the small bowel into the colon, appearance of which favors partial small bowel obstruction. Electronically signed by: Silva Santiago MD (03/24/2021 3:56 PM) [id number]
--- NOTE | 2021-03-24 20:01 | NUR ---
patient was up in chair with her niece in the room with her. She had been having abdominal pain throughout the morning. I was in to give her pain medication 10 mins. prior. When coming down the moon the pts niece was in the moon telling me she had coded. When going into the room, EDGARDO Betancourt was in there and stated that the pt had . We both verified no heartbeat. Dr. James, Dr Womack, Dorene were notified and a msg. left for Dr. Loyd.
--- NOTE | 2021-04-16 12:25 | PDOC3 ---
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 Acute cystitis urine culture with Proteus mirabilis Acute infectious versus metabolic encephalopathy KENYA due to vasomotor nephropathy History of multiple falls Mild hyponatremia 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 History of hypertension History of GERD Keep NG tube in to LI WS Appreciate vascular surgery recommendations to monitor AAA and 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 Pending small bowel follow-through per general surgery Pending neurosurgery evaluation L1 transverse process fracture Pending orthostatic vital signs Pending PT/OT evaluation and recommendations Delirium prevention protocol Continue empiric IV antibiotics Pending urine cultures sensitivities Continue IV fluids Trend creatinine Monitor urine output Strict I/O Fall precautions PT OT evaluation Orthostatic vital signs Lovenox for DVT prophylaxis Protonix GI prophylaxis Cardiac diet CODE STATUS full Discussed with RN and SW Disposition inpatient management as above DPOA: Sister, Margoth Mauro History of Present Illness History of Present Illness 89-year-old female with past medical history of hypertension and 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 Patient lives at home with sister and daughter. Sister is a nurse and daughter is the main caregiver. Apparently in the past few days patient has been having more urinary frequency and falls. She does not usually use any walking device. Son is at bedside is able to provide history along with the patient. They also noticed that the patient was having some bouts of confusion which is not normal for her. Patient has hard of hearing and is able to answer some questions appropriately. Patient denies any suprapubic discomfort or dysuria. She does admit to a fall from ground-level yesterday due to slipping and admits to striking her head but denies loss of consciousness, nausea or vomiting or amnesia to events. She is not on any blood thinners. Patient denies any chest pain, fevers, nausea vomiting, abdominal pain, hematuria or diarrhea. 03/16/21 No acute events overnight. Pt apparently had a fall from commode this morning and complained of right hip and elbow pain. Also complained of headache. CT head and XR of Right elbow and Hip was obtained. Negative for any acute fractures. Lortab 5/325 was started for pain, but this was not controlled well. Escalated with IV morphine for breakthrough pain and will watch overnight. No urinary symptoms or complaints. Despite incident this morning, patient is less confused and AAOx3. AF and VSS. 03/17/2021 No acute events overnight. Patient seen and examined bedside. Patient is at her baseline mental status with some confusion according to niece who is at bedside. Patient continues to complain of right hip pain where she fell. Pending PT evaluation before determining if I should scan her vertebrae for fractures from her fall while in the hospital. We will continue to keep her inpatient for IV n.p.o. pain control. Continue IV antibiotics for UTI. Waiting for sensitivities. Patient's chart, labs, images were reviewed and discussed with RN 03/18/2021 No acute events overnight. Patient seen and examined bedside. Episode of vomiting this morning with morphine dose. Improved with Zofran. Patient continues to have minimal output through her colostomy. She continues to have some back pain. Multiple findings and images yesterday which requires evaluation from vascular surgery, general surgery, neurosurgery. Pending their evaluation.. We will keep n.p.o. for now. Patient's chart, labs, images were reviewed and discussed with RN 03/20 No major overnight events. Discussed with patient and son at bedside at great length. Trying clears today. Plan of care discussed bedside RN. 03/21 evaluated and examined at bedside. ADAT. discussed wtih bedside RN. 03/22 Patient evaluated examined at bedside. Resting in bed no major complaints. Having some output from ostomy. Checking x-ray today per surgery. Plan of care discussed with bedside RN. 03/23 Patient eval and examined at bedside. Doing ok with clears thus far. Needs placement. 03/24 Patient's morning complaining of notable amount of abdominal pain. Work-up was pursued. Abdominal pain worsened throughout the day and patient had a code ev ent. She March 24 Disposition: Disposition/Orders: Activity: Activity: Resume previous activity Medications: Home Meds Active Scripts Albuterol Sulfate (PROAIR HFA INHALER) 8.5 Gm Hfa.aer.ad, 2 PUFF IH PRN Q4-6HRS PRN for wheezing for 21 Days, #1 INHALER 0 Refills Prov:JENNIFER DE LA FUENTE MD 03/18/19 Benzonatate (TESSALON PERLE) 100 Mg Capsule, 1 CAP PO TID for cough, #21 CAP Prov:JENNIFER DE LA FUENTE MD 03/18/19 Oxycodone/Apap 5-325 (PERCOCET 5-325 MG TABLET ) 1 Each Tablet, 1 TAB PO PRN Q6HRS PRN for PAIN, #14 TAB 0 Refills Prov:JENNIFER DE LA FUENTE MD 03/18/19 Amoxicillin (AMOXICILLIN) 500 Mg Capsule, 1 CAP PO Q8HRS for infection, #30 CAP Prov:JENNIFER DE LA FUENTE MD 03/18/19 Pantoprazole Sodium (PROTONIX ) 40 Mg Tablet, 40 MG PO DAILYAC, #30 Prov:WARREN OLIVER MD 12/11/14 Reported Medications Lactobacillus Combination No.4 (PROBIOTIC) 1 Each Capsule, 1 EACH PO DAILY08 10/09/14 Carvedilol (COREG ) 12.5 Mg Tablet, 1 TAB PO BID, #180 TAB 1 Refill 10/09/14 Irbesartan (AVAPRO) 150 Mg Tablet, 150 MG PO DAILY, TAB 07/24/14 Scheduled Amoxicillin (Amoxicillin), 1 CAP PO Q8HRS Benzonatate (Tessalon Perle), 1 CAP PO TID Carvedilol (Coreg ), 1 TAB PO BID, (Reported) Irbesartan (Avapro), 150 MG PO DAILY, (Reported) Lactobacillus Combination No.4 (Probiotic), 1 EACH PO DAILY08, (Reported) Pantoprazole Sodium (Protonix ), 40 MG PO DAILYAC Scheduled PRN Albuterol Sulfate (Proair Hfa Inhaler), 2 PUFF IH PRN Q4-6HRS PRN for wheezing Oxycodone/Apap 5-325 (Percocet 5-325 Mg Tablet ), 1 TAB PO PRN Q6HRS PRN for PAIN Justicifation of Admission Dx: Justifications for Admission: Justification of Admission Dx: Yes JASYON THOMPSON MD Apr 16, 2021 12:25
== END 2021-03-24 12:58 | DRG 689 ==
LOC: ER 08:50 → 4 NORTH 10:14 → OBSVTOIN 03-16 16:00
PROVIDERS: ADMIT Internal Medicine; ATTEND Internal Medicine
DX: N30.00 Acute cystitis without hematuria (principal); N17.0 Acute kidney failure with tubular necrosis; G93.41 Metabolic encephalopathy; E87.1 Hypo-osmolality and hyponatremia; K56.600 Partial intestinal obstruction, unspecified as to cause; K56.7 Ileus, unspecified; M48.56XA Collapsed vertebra, not elsewhere classified, lumbar region, initial encounter for fracture; E86.0 Dehydration; G62.9 Polyneuropathy, unspecified; I10 Essential (primary) hypertension; I71.4 Abdominal aortic aneurysm, without rupture; J32.0 Chronic maxillary sinusitis; J43.9 Emphysema, unspecified; M43.16 Spondylolisthesis, lumbar region; M48.04 Spinal stenosis, thoracic region; M75.100 Unspecified rotator cuff tear or rupture of unspecified shoulder, not specified as traumatic; R29.6 Repeated falls; T40.2X5A Adverse effect of other opioids, initial encounter; W18.11XA Fall from or off toilet without subsequent striking against object, initial encounter; Y92.239 Unspecified place in hospital as the place of occurrence of the external cause; Z87.891 Personal history of nicotine dependence; Z90.49 Acquired absence of other specified parts of digestive tract; Z90.710 Acquired absence of both cervix and uterus; Z91.81 History of falling; Z93.3 Colostomy status; Z96.651 Presence of right artificial knee joint; K21.9 Gastro-esophageal reflux disease without esophagitis; M19.90 Unspecified osteoarthritis, unspecified site; Z20.822 Contact with and (suspected) exposure to COVID-19; B96.4 Proteus (mirabilis) (morganii) as the cause of diseases classified elsewhere
CPT/HCPCS: 36415; 70450; 72128; 72131; 72192; 73070; 73521; 74018; 74021; 74022; 74176; 74250; 80048; 80053; 81001; 82306; 82607; 82962; 83735; 84100; 84443; 85025; 87077; 87086; 87186; 87426; 93926; G0378; G0379; J0696; J0780; J1650; J2270; J2405; J3010; J3475; J7030; J7040; Q9967; U0003; U0005; 73560-50; 97110-GP; 97530-GO; 97530-GP; 97535-GO; 99285-25